=== PATIENT | male | born 1950 | race Caucasian/White ===

== ENCOUNTER 2021-07-12 11:47 | Inpatient (IN) | payer MEDICARE, OTHER, SELFPAY ==
[2021-07-12] VITALS (51 sets, daily range): BP systolic 64–123; BP diastolic 35–59; PULSE 71–165; RESP 17–42; TEMP 36.2–37.7; O2SAT 84–100; BMI 31.1; BMI 44.4
--- NOTE | 2021-07-12 12:05 | XR_ITS ---
FINAL REPORT TECHNIQUE: Single view chest CLINICAL HISTORY: cough, sob FINDINGS: A single view of the chest was obtained. The heart and mediastinum are within normal limits. There is bibasilar atelectasis or pneumonia. There is no pneumothorax. Osseous structures are unremarkable. IMPRESSION: Bibasilar atelectasis or pneumonia. Reviewed, Interpreted and Dictated by Misbah Andre III, MD Transcribed by Shayy Griggs Authenticated by Misbah Andre III, MD on 07/12/2021 01:06:58 PM [facility]
--- NOTE | 2021-07-12 12:22 | HMH.EDGIBL ---
ED Disposition Clinical Impression: Upper GI bleeding, Ileus, Acute kidney injury, Lactic acid acidosis Pneumonia Qualifiers: Pneumonia type: due to unspecified organism Laterality: bilateral Lung location: lower lobe of lung Qualified Code(s): J18.9 - Pneumonia, unspecified organism Disposition: Admitted As Inpatient Condition on Discharge: Serious Instructions: DI for Gastrointestinal Bleeding Referrals: Abiodun Cortes MD [Staff Physician] - - Critical Care Critical Care Time: Yes Attestation: On 07/12/21, the high probability of a clinically significant, sudden or life threatening deterioration of the following system(s) required my full and direct attention, intervention and personal management. The time I documented below is in addition to time spent performing reported procedures but includes the following listed in this critical care notation. Total Critical Care Time: 45 Vital system(s) involved:: Circulatory Failure, Metabolic Failure, Renal Failure, Shock (Septic) My critical care processes included: Assessment & monitoring of V/S, Initial and Re-exams, Data Review/Interpretation, Coordinating Care, Medication Orders and management, Documentation Medical Decision Making - Medical Records Medical records reviewed: Yes: I reviewed the patient's medical records. - [place] Inquiry Pt receiving controlled substance: No Vital Signs: 07/12/21 11:50 07/12/21 11:55 07/12/21 12:00 Temperature 98.2 F Temperature Source Oral Pulse Rate 91 H 87 Pulse Rate [Left Radial] 90 Respiratory Rate 20 Blood Pressure 90/47 L 87/47 L Blood Pressure [Right Arm] 75/53 L Blood Pressure Mean [Right Arm] 60 Blood Pressure Source [Right Arm] Automatic Cuff Blood Pressure Position [Right Arm] Supine 02 Sat by Pulse Oximetry 95 95 97 Oxygen Delivery Method Room Air Room Air 07/12/21 12:08 07/12/21 12:10 07/12/21 12:15 Temperature Temperature Source Pulse Rate 79 85 86 Pulse Rate [Left Radial] Respiratory Rate Blood Pressure 86/42 L 81/45 L 79/59 L Blood Pressure [Right Arm] Blood Pressure Mean [Right Arm] Blood Pressure Source [Right Arm] Blood Pressure Position [Right Arm] 02 Sat by Pulse Oximetry 96 96 97 Oxygen Delivery Method 07/12/21 12:20 07/12/21 12:28 07/12/21 12:30 Temperature Temperature Source Pulse Rate 72 78 Pulse Rate [Left Radial] Respiratory Rate Blood Pressure 88/49 L 81/46 L 83/42 L Blood Pressure [Right Arm] Blood Pressure Mean [Right Arm] Blood Pressure Source [Right Arm] Blood Pressure Position [Right Arm] 02 Sat by Pulse Oximetry 94 L 98 Oxygen Delivery Method 07/12/21 12:35 07/12/21 12:40 07/12/21 12:45 Temperature Temperature Source Pulse Rate 76 74 77 Pulse Rate [Left Radial] Respiratory Rate Blood Pressure 94/46 L 89/44 L 90/51 L Blood Pressure [Right Arm] Blood Pressure Mean [Right Arm] Blood Pressure Source [Right Arm] Blood Pressure Position [Right Arm] 02 Sat by Pulse Oximetry 98 99 98 Oxygen Delivery Method 07/12/21 12:50 07/12/21 12:55 07/12/21 13:00 Temperature Temperature Source Pulse Rate 85 87 85 Pulse Rate [Left Radial] Respiratory Rate Blood Pressure 80/41 L 83/49 L 96/43 L Blood Pressure [Right Arm] Blood Pressure Mean [Right Arm] Blood Pressure Source [Right Arm] Blood Pressure Position [Right Arm] 02 Sat by Pulse Oximetry 100 100 100 Oxygen Delivery Method 07/12/21 13:35 07/12/21 14:00 07/12/21 14:28 Temperature Temperature Source Pulse Rate 89 87 81 Pulse Rate [Left Radial] Respiratory Rate Blood Pressure 81/44 L 81/48 L 72/44 L Blood Pressure [Right Arm] Blood Pressure Mean [Right Arm] Blood Pressure Source [Right Arm] Blood Pressure Position [Right Arm] 02 Sat by Pulse Oximetry 96 97 95 Oxygen Delivery Method - Lab Data Lab Results 07/12/21 11:55: WBC 10.9 H, RBC 4.40 L, Hg
[2021-07-12 12:23] LABS: Basophils # 0.1 K/mm3 (0-0.2); Basophils % 0.6 % (0.1-2.0); Eosinophils # 0.1 K/mm3 (0.0-0.4); Eosinophils % 0.8 % (0.1-12.0); Hematocrit 44.6 % (42.0-52.0); Hemoglobin 14.3 g/dL (14.1-18.0); Lymphocytes # 0.9 K/mm3 (0.7-4.5); Lymphocytes % 8.4 % (10-50); Mean Corpuscular HGB Conc 32.1 g/dL (31.8-35.4); Mean Corpuscular Hemoglobin 32.5 pg (27.0-31.2); Mean Corpuscular Volume 101.4 fl (80-94); Mean Platelet Volume 8.3 fl (7.4-10.4); Monocytes # 1.1 K/mm3 (0.1-1.0); Monocytes % 9.9 % (1.7-9.3); Neutrophils # 8.7 K/mm3 (1.8-7.8); Neutrophils % 80.2 % (37.0-80.0); Platelet Count 471 K/mm3 (142-424); Red Cell Distribution Width 12.8 % (11.5-17.5); White Blood Count 10.9 K/mm3 (4.8-10.8)
[2021-07-12 12:24] LABS: Coronavirus 19, PCR Not Detected (NotDetected); Influenza A, PCR Not Detected (NotDetected); Influenza B, PCR Not Detected (NotDetected)
[2021-07-12 12:25] LABS: Chloride 89 mmol/L (98-107); Potassium 3.4 mmoL/L (3.5-5.1); Sodium 128 mmol/L (136-145)
[2021-07-12 12:28] LABS: Alanine Aminotransferase 21 U/L (12-78); Albumin Level 3.8 g/dl (3.5-5.0); Albumin/Globulin Ratio 1.3 (1.1-1.8); Alkaline Phosphatase 80 U/L (38-126); Anion Gap 21.4 mEq/L (5-15); Aspartate Amino Transferase 26 U/L (17-59); Bilirubin,Total 2.3 mg/dl (0.2-1.3); Calcium 9.9 mg/dl (8.4-10.2); Carbon Dioxide 21 mmol/L (22.0-30.0); Glucose 242 mg/dl (74-100); Lipase 59 U/L (23-300); Total Protein,Serum 6.8 g/dl (6.3-8.2)
[2021-07-12 12:30] LABS: Activated Partial Thrombo Time 26.3 seconds (22.8-30.6); INR 1.01 (0.9-1.1); Prothrombin Time 11.4 seconds (10.1-12.5)
[2021-07-12 12:34] LABS: Creatinine Clearance Estimated 24 mL/min (50-200); Estimated Glomerular Filt Rate 14 ml/min (>60); GFR (African American) 17 ML/MIN (>60)
[2021-07-12 12:37] LABS: NT Pro Brain Natriuretic Pep. 392 pg/mL (0-125)
[2021-07-12 12:41] LABS: Troponin I 0.02 ng/ml (0.00-0.034)
[2021-07-12 12:45] LABS: Occult Blood,Gastric Fluid Positive (Negative)
--- NOTE | 2021-07-12 12:54 | PC.NURSE ---
called pharmacy to mix protonix drip
[2021-07-12 12:57] LABS: Lactic Acid 2.2 mmol/L (0.7-2.1)
[2021-07-12 12:58] LABS: Blood Urea Nitrogen 95 mg/dl (9-20)
--- NOTE | 2021-07-12 13:02 | CT_ITS ---
FINAL REPORT CLINICAL HISTORY: vomiting, abd pain FINDINGS: Axial CT images of the abdomen and pelvis were obtained without intravenous contrast. Coronal reformatted images were also obtained.This study was performed with techniques to keep radiation doses as low as reasonably achievable (ALARA). Individualized dose reduction techniques using automated exposure control or adjustment of mA and/or kV according to the patient's size were employed. Abdomen: The study is technically limiting secondary to patient body habitus. There is bilateral gynecomastia. There is bibasilar atelectasis. There is a less than 3 mm nonobstructive right renal stone. There are probable small gallstones in the gallbladder. The liver, spleen and pancreas have an unremarkable, unenhanced appearance. No mass or adenopathy is seen. There is anasarca. There are multiple air and fluid-filled distended bowel loops without a definite transition point. This may represent an ileus or enteritis. A distal colonic obstruction is not entirely excluded. Pelvis: Images of the pelvis reveal no evidence of ureteral dilation or ureteral stone. The appendix is normal. There is an umbilical hernia containing fat. IMPRESSION: Technically limiting study secondary to patient body habitus. Multiple air and fluid filled distended bowel loops without a definite transition point, may represent an ileus or enteritis. A distal colonic obstruction is not entirely excluded. Reviewed, Interpreted and Dictated by Misbah Andre III, MD Transcribed by Ifeoma Owen Authenticated by Misbah Andre III, MD on 07/12/2021 02:33:53 PM [facility]
[2021-07-12 13:12] LABS: Acetone, Serum (Rapid) None Detected (None Detect)
--- NOTE | 2021-07-12 13:42 | PC.NURSE ---
called RT for vbg order
[2021-07-12 13:50] LABS: VBG Base Excess -8.6 mmol/L (-2.4-2.3); VBG HCO3 18.4 mmol/L (23-30); VBG Oxygen Saturation 78.6 % (50-70); VBG PH 7.27 mmol/L (7.31-7.41); VBG PO2 48.8 mmol/L (28-40); VBG Total CO2 19.6 mmol/L (23-27)
--- NOTE | 2021-07-12 14:32 | ECG_ITS ---
APPROVED REPORT Exam: Resting ECG HR:91 bpm ECG Measurements Heart Rate 91 AXES MA 172 P 8 QRSd 102 QRS 23 QT 378 T 7 QTc 464 Conclusion Normal sinus rhythm Isolated q in iii Abnormal ECG Electronically signed by : René Becker MD 07/14/2021 13:46:21
--- NOTE | 2021-07-12 14:42 | PC.NURSE ---
Dr Reyes talking to Dr Hernandez about patient.
--- NOTE | 2021-07-12 14:54 | HMH.GSCON ---
*Admission Date: 07/12/21 *Reason for consult:: Possible bowel obstruction, possible GI bleed *History of present illness: Patient is a 71-year-old male with history of hypertension, type 2 diabetes, hyperlipidemia, morbid obesity, obstructive sleep apnea who presented to the emergency department with some black vomitus and generally ill feeling. He has been in a physical rehab facility due to right lower extremity fracture which she sustained after taking a fall from an awkward step and had undergone fibula intramedullary nail insertion. He states that he has had some nausea and vomiting while hospitalized and his pain medication was switched from [place] to Percocet. He had some problem with constipation. His vomiting has worsened and was noted to have dark urine concerning for dehydration. He has had some abdominal discomfort and abdominal cramping. Like that he has had some degree of symptoms since his surgery for his right lower extremity fracture earlier this month. He has not had any diarrhea or obvious bloody bowel movements. Evaluation in the emergency department revealed some hypotension. He underwent CT scan of the abdomen and pelvis which revealed findings of diffusely dilated small bowel with air-fluid levels. This was felt to be possibly consistent with ileus versus obstruction versus enteritis but it was somewhat of a limited study. He was noted to have hemoglobin of 14 with hematocrit of 44%. Other significant laboratory findings revealed sodium of 128, chloride 89, CO2 21, BUN 95 and creatinine of 4.2. Lactate is 2.2. Venous blood gas reveals pH 7.27, PO2 48, PCO2 19. Patient was given multiple fluid boluses and started on pressor. Arrangements were made for inpatient admission in critical condition to the ICU and surgical consultation was ordered. Review of Systems - Review of Systems Review of systems:: pertinent systems reviewed and negative unless documented below - *Neurologic Reports weakness, Denies headache(s), Denies numbness [facility] History I have reviewed the patient's past medical history: Yes Medical History: Reports:: Coronary Artery Disease, Diabetes Mellitus Type 1, Hyperlipidemia, Hypertension *Have you ever received a pneumonia vaccine?: Yes *Have you received a flu vaccine this season?: Yes Laterality Cases: Right: Arthroscopy Knee - *Social History Smoking Status: Smoker, status unknown Alcohol Intake: never *Occupational Status:: other *Travel in the last 8 weeks: None Family Hx:: Non-contributory Meds Home Medications Medication Instructions Recorded Confirmed Type Acetaminophen [Tylenol 500mg 500 mg PO Q6 PRN 07/12/21 07/12/21 History tablet] Aspirin [Aspirin 81mg chewable 81 mg PO DAILY 07/12/21 07/12/21 History tab] Bisacodyl [Bisacodyl 10mg Supp] 10 mg RC DAILYP PRN 07/12/21 07/12/21 History Bisacodyl [Women's Laxative] 5 mg PO DAILY PRN 07/12/21 07/12/21 History Famotidine [Pepcid 20mg Tablet] 20 mg PO BID 07/12/21 07/12/21 History Olmesartan Medoxomil 20 mg PO DAILY 07/12/21 07/12/21 History Oxycodone HCl/Acetaminophen 1 each PO Q4HP PRN 07/12/21 07/12/21 History [Oxycodone-Acetaminophen 5-325] Pioglitazone HCl 15 mg PO DAILY 07/12/21 07/12/21 History Promethazine HCl [Phenergan 12.5mg 12.5 mg PO DAILY PRN 07/12/21 07/12/21 History tablet] Sennosides/Docusate Sodium 1 each PO DAILY PRN 07/12/21 07/12/21 History [Senna-Docusate Sodium Tablet] Simvastatin 40 mg PO DAILY 07/12/21 07/12/21 History Spironolactone 50 mg PO DAILY 07/12/21 07/12/21 History Tamsulosin HCl 0.4 mg PO DAILY 07/12/21 07/12/21 History allopurinoL [Allopurinol 100mg 100 mg PO DAILY 07/12/21 07/12/21 History tablet] bisacodyL [Bisacodyl] 10 mg RC DAILY PRN 07/12/21 07/12/21 History bisacodyL [Dulcolax 10mg Supp] 10 mg RC DAILYP PRN 07/12/21 07/12/21 History ondansetron HCL [Zofran 4mg Tab*] 4 mg PO Q6HP PRN 07/12/21 07/12/21 History polyethylene glycoL 3350 17 gm PO DAILY 07/12/2107/02
--- NOTE | 2021-07-12 14:56 | HMH.HP ---
*Admission Date: 07/12/21 <Cordelia Cole - 07/12/21 15:42> *Chief complaint: GIB <Cordelia Cole - 07/12/21 15:42> *History of present illness: Mr. CAN Cortes is a 71-year-old male patient with a history of hypertension, type 2 diabetes mellitus, hyperlipidemia, BPH, morbid obesity, CRUZ on CPAP, and fall who presented to [facility] emergency room for evaluations after vomiting coffee-ground black emesis in the senior care. At that time he was found to be hypotensive as well. Abdomen was taut with some tenderness. He generally did not feel well. He denied any upper respiratory symptoms and fever. To note he had a fall at home at which time he sustained a fracture of the right tibia/fibula when he took an awkward step. He was taken to the operating room at [facility] where he had a fibula intramedullary nail/snow insertion by Dr. Palacios. He also was noted to have some left ankle ligament changes. While hospitalized with the leg surgery he experienced some nausea and vomiting but this was related to the [place]. He was switched back to Percocet at which time this resolved. He did have some constipation which was resolved with Senokot and MiraLAX. He was sent to [facility] for ongoing short-term rehab with a stay expectancy of 4 to 6 weeks. He does live alone and was planning to return home. With evaluation in the emergency room laboratory data showed a white blood cell count of 10,900 and a hemoglobin of 14.3 hematocrit of 44.6. Blood chemistry showed a sodium of 128 potassium 3.4 chloride 89 CO2 21. BUN was 95 and creatinine was 4.2. GFR was 17. Lactate was elevated at 2.2. Liver function studies were not elevated. BNP was 392. Emesis was noted to be positive for occult blood. Acetone was negative. COVID was negative. Coagulation was normal with an INR of 1.01. CXR revealed bibasilar ateletasis CT of the abdomen/pelvis: IMPRESSION: Technically limiting study secondary to patient body habitus. Multiple air and fluid filled distended bowel loops without a definite transition point, may represent an ileus or enteritis. A distal colonic obstruction is not entirely excluded. With evaluation in the emergency room patient was found to be afebrile and initial blood pressure was 75/53. It did improve to 90/47 and 87/47. He was started on Protonix and given a fluid bolus. He was also started on Rocephin IV and lactated Ringer's at 125 an hour. He was started on norepinephrine drip and given doxycycline as well. He had Zofran and Protonix during his stay. ER physician noted that findings were concerning for severe ileus or possible obstruction. He also noted that the pt received a full 30 cc/kg fluid bolus based on his ideal body weight. NG tube was placed. Hemoglobin was stable. He was seen in consultation by surgeon Dr. Hernandez with the following assessment and plan: Assessment and Plan for all problems:: Majority of his symptoms seem to be secondary to possible bowel obstruction versus profound ileus. I would plan to treat as such with nasogastric decompression and IV fluid hydration. Black vomit is likely secondary to bowel obstruction. I would recommend proton pump inhibitor at this time. Would not plan for upper endoscopy at this time but plan to treat as bowel obstruction He was then admitted to [facility] for ongoing care. <Cordelia Cole 07/12/21 15:42> [facility] History Medical History: Reports:: BPH, Diabetes Mellitus Type 2, Gastroesophageal Reflux Disease(GERD), Hyperlipidemia, Hypertension <Cordelia Cole 07/12/21 15:42> *Have you ever received a pneumonia vaccine?: Yes <Cordelia Cole 07/12/21 15:42> *Have you received a flu vaccine this season?: Yes <Cordelia Cole 07/12/21 15:42> Comment:: Obesity, CRUZ on CPAP. <Cordelia Cole 07/12/21 15:42> Laterality Cases: Right: Arthroscopy Knee <Cordelia Cole 07/12/21 15:42> - *Social History Smoking Status: Never smoker <Cordelia Cole 07/12/21 15:42> Al
--- NOTE | 2021-07-12 15:01 | PC.NURSE ---
Dr Hernandez at bedside
--- NOTE | 2021-07-12 15:08 | XR_ITS ---
FINAL REPORT CLINICAL HISTORY: ng tube placement COMPARISON: 2 hours prior FINDINGS: An NG tube is seen with the tip in the region of the body of the stomach. The heart size is normal. The mediastinum is normal. There are mild bibasilar opacities. There are no pleural effusions. There is no pneumothorax. There is no osseous abnormality. IMPRESSION: NG tube tip in the region of the body of the stomach. Mild bibasilar opacities, atelectasis or pneumonia. Reviewed, Interpreted and Dictated by Misbah Andre III, MD Transcribed by Mack Vera Authenticated by Misbah Andre III, MD on 07/12/2021 04:11:16 PM [facility]
[2021-07-12 15:47] LABS: Troponin I 0.02 ng/ml (0.00-0.034)
--- NOTE | 2021-07-12 15:56 | PC.NURSE ---
rad at bedside
[2021-07-12 16:34] LABS: Reflex Lactic Add Lactic Reflex
--- NOTE | 2021-07-12 16:41 | PC.NURSE ---
lab at bedside
[2021-07-12 17:07] LABS: Lactic Acid Follow Up (RFLX 1) 3.8 mmol/L (0.7-2.1)
[2021-07-12 18:56] LABS: Reflex Lactic (2 hrs) Add Lactic Reflex
[2021-07-12 19:10] LABS: Hematocrit 42.6 % (42.0-52.0); Hemoglobin 13.4 g/dL (14.1-18.0)
[2021-07-12 19:25] LABS: Anion Gap 24.2 mEq/L (5-15); Calcium 9.4 mg/dl (8.4-10.2); Carbon Dioxide 14 mmol/L (22.0-30.0); Chloride 90 mmol/L (98-107); Glucose 219 mg/dl (74-100); Potassium 3.2 mmoL/L (3.5-5.1); Sodium 125 mmol/L (136-145)
[2021-07-12 19:30] LABS: Troponin I 0.02 ng/ml (0.00-0.034)
[2021-07-12 19:32] LABS: Creatinine Clearance Estimated 18 mL/min (50-200); Estimated Glomerular Filt Rate 14 ml/min (>60); GFR (African American) 17 ML/MIN (>60)
--- NOTE | 2021-07-12 19:45 | PC.NURSE ---
tyler Armijo, will await return call
[2021-07-12 19:56] LABS: Blood Urea Nitrogen 101 mg/dl (9-20)
[2021-07-12 19:58] LABS: Lactic Acid Follow up (RFLX 2) 4.2 mmol/L (0.7-2.1)
--- NOTE | 2021-07-12 20:14 | PC.NURSE ---
notified MD Armijo of pt's HR 140;s-160's and critical labs (BUN 101, creatinine 4.1, lactic acid 4.2), instructed to start cardizem drip if bp tolerates for HR less than 100, will do so and continue to monitor
[2021-07-12 20:40] LABS: POC Glucose,Bedside 167 (70-110)
--- NOTE | 2021-07-12 20:54 | PC.NURSE ---
notified MD Armijo that pt's oxygen saturations on home cpap with 3LNC also 87-88%, instructed to use [facility] cpap instead, will do so and continue to monitor
--- NOTE | 2021-07-12 21:37 | PC.NURSE ---
notified MD Armijo that had to stop cardizem drip due to hypotension with levo drip maxed, HR still 140's to 170, instructed to give 1L NS bolus, will do so and continue to monitor
--- NOTE | 2021-07-12 22:00 | PC.NURSE ---
MD Armijo at bedside assessing pt and going over chart
--- NOTE | 2021-07-12 22:53 | HMH.ACPN2 ---
Internal Medicine - PN: Subj *Date: 07/12/21 *Time: 22:53 Interval history: He is maxed out on his Levophed and remaines hypotensive with systolic blood pressure in the 80s and is now more tachycardic in the 130s and 140s. He is wearing his BiPAP for treatment of his sleep apnea is O2 sats remained in the mid 90s. He is awake and answering questions appropriately. Abdomen remains markedly distended and has had very little additional NG output. He denies abdominal pain. Exam Vital signs and Labs for Last 24 Hours: Temp Pulse Resp BP Pulse Ox 98.4 F 136 H 28 H 93/48 L 95 07/12/21 17:50 07/12/21 22:00 07/12/21 22:00 07/12/21 22:00 07/12/21 22:00 Laboratory Results - last 24 hr 07/12/21 11:55: WBC 10.9 H, RBC 4.40 L, Hgb 14.3, Hct 44.6, MCV 101.4 H, MCH 32.5 H, MCHC 32.1, RDW 12.8, Plt Count 471 H, MPV 8.3, Neut % (Auto) 80.2 H, Lymph % (Auto) 8.4 L, [place] % (Auto) 9.9 H, Eos % (Auto) 0.8, Baso % (Auto) 0.6, Neut # (Auto) 8.7 H, Lymph # (Auto) 0.9, [place] # (Auto) 1.1 H, Eos # (Auto) 0.1, Baso # (Auto) 0.1 07/12/21 11:55: PT 11.4, INR 1.01, APTT 26.3 07/12/21 11:55: Sodium 128 L, Potassium 3.4 L, Chloride 89 L, Carbon Dioxide 21 L, Anion Gap 21.4 H, BUN 95 H, Creatinine 4.20 H, Estimated Creat Clear 24, Estimated GFR 14 L*, Est GFR ( Amer) 17 L*, Glucose 242 H, Calcium 9.9, Total Bilirubin 2.3 H, AST 26, ALT 21, Alkaline Phosphatase 80, Troponin I 0.02, NT-Pro-B Natriuret Pep 392 H, Total Protein 6.8, Albumin 3.8, Globulin 3.0, Albumin/Globulin Ratio 1.3, Lipase 59 07/12/21 11:55: Acetone Level None detected 07/12/21 12:00: Blood Type B Positive, Antibody Screen Negative 07/12/21 12:05: SARS-CoV-2 (PCR) Not detected, Influenza A Untype (PCR) Not detected, Influenza Type B (PCR) Not detected 07/12/21 12:07: Gastric Occult Blood Positive 07/12/21 12:29: Lactate 2.2 H 07/12/21 13:00: VBG pH 7.27 L, VBG pCO2 41.0, VBG pO2 48.8 H, VBG HCO3 18.4 L, VBG Total CO2 19.6 L, VBG O2 Saturation 78.6 H, VBG Base Excess -8.6 L 07/12/21 15:18: Troponin I 0.02 07/12/21 16:46: Lactate 3.8 H 07/12/21 19:00: Troponin I 0.02 07/12/21 19:00: Hgb 13.4 L, Hct 42.6 07/12/21 19:00: Sodium 125 L, Potassium 3.2 L, Chloride 90 L, Carbon Dioxide 14 L, Anion Gap 24.2 H, BUN 101 H*, Creatinine 4.10 H, Estimated Creat Clear 18, Estimated GFR 14 L*, Est GFR ( Amer) 17 L*, Glucose 219 H, Calcium 9.4 07/12/21 19:10: Lactate 4.2 H 07/12/21 20:32: POC Glucose 167 H I & O for Last 24 hours: Intake & Output 07/10/21 07/11/21 07/12/21 07/13/21 11:59 11:59 11:59 11:59 Intake Total 3743 / 3743 Balance 3743 / 3743 Weight 230 lb 327 lb 5 oz Narrative: Color is good. No respiratory distress. Lungs are clear. Heart is tachycardic but regular. Abdomen markedly distended and firm with only minimal epigastric tenderness. Extremities with no edema. On repeat labs, his hemoglobin is relatively stable. BUN/creatinine remain high. He is hyponatremic at 125. Assessment and Plan (1) Bowel obstruction Status: Acute Category: Medical Code(s): K56.609 - Unspecified intestinal obstruction, unspecified as to partial versus complete obstruction (2) Upper GI bleeding Status: Acute Category: Medical Code(s): K92.2 - Gastrointestinal hemorrhage, unspecified (3) Acute kidney injury Status: Acute Category: Medical Code(s): N17.9 - Acute kidney failure, unspecified (4) Hypotension Status: Acute Category: Medical Code(s): I95.9 - Hypotension, unspecified (5) Abnormal CXR Status: Acute Category: Medical Code(s): R93.89 - Abnormal findings on diagnostic imaging of other specified body structures (6) HTN (hypertension) Status: Chronic Category: Medical Code(s): I10 - Essential (primary) hypertension (7) BPH (benign prostatic hyperplasia) Status: Chronic Category: Medical Code(s): N40.0 - Benign prostatic hyperplasia without lower urinary tract symptoms (8) Obesity Status: Acute Category: Medical
[2021-07-12 23:34] LABS: Microscopic, Urine URINE MICROSCOPIC (MICROSCOPIC)
[2021-07-12 23:35] LABS: Blood, Urine Negative (Negative); Glucose,Urine (UA) TRACE (Negative); Ketones,Urine TRACE (Negative); Leukocyte Esterase,Urine TRACE (Negative); Nitrate,Urine Negative (Negative); Protein,Urine TRACE (Negative); Specific Gravity, Urine >= 1.030 (1.005-1.030); Urobilinogen,Urine 0.2 EU/dl (0.2)
--- NOTE | 2021-07-12 23:37 | PC.NURSE ---
started rowan and stopped levo, MD Armijo at bedside also added vasopressin as bp still below sbp of 80 while maxed on rowan, will start vaso and continue to monitor
[2021-07-12 23:38] LABS: Bilirubin,Urine Negative (Negative)
[2021-07-12 23:39] LABS: Appearance,Urine Cloudy (Clear); Color,Urine Dark Yellow (Yellow)
--- NOTE | 2021-07-12 23:39 | PC.NURSE ---
new iv placed in left wrist, 20g left wrist
[2021-07-12 23:51] LABS: Amorphous Sediment,Urine 1+ /lpf; Bacteria,Urine 4+ /lpf; Mucus,Urine 1+ /lpf
[2021-07-13] VITALS (53 sets, daily range): BP systolic 80–147; BP diastolic 30–97; PULSE 71–149; RESP 20–37; TEMP 37.2–38.5; O2SAT 90–100; BMI 46.3
--- NOTE | 2021-07-13 00:35 | PC.NURSE ---
pt with increased temp, tylenol 650mg given and took off heavy blankets and placed fan in pt's room
[2021-07-13 06:30] LABS: Basophils # 0.1 K/mm3 (0-0.2); Basophils % 0.8 % (0.1-2.0); Eosinophils # 0.1 K/mm3 (0.0-0.4); Eosinophils % 0.4 % (0.1-12.0); Hematocrit 38.7 % (42.0-52.0); Hemoglobin 12.4 g/dL (14.1-18.0); Lymphocytes # 0.9 K/mm3 (0.7-4.5); Lymphocytes % 6.7 % (10-50); Mean Corpuscular Hemoglobin 32.3 pg (27.0-31.2); Mean Platelet Volume 8.9 fl (7.4-10.4); Monocytes # 0.9 K/mm3 (0.1-1.0); Monocytes % 6.9 % (1.7-9.3); Neutrophils # 11.2 K/mm3 (1.8-7.8); Neutrophils % 85.2 % (37.0-80.0); Platelet Count 427 K/mm3 (142-424); Red Blood Count 3.83 M/mm3 (4.60-6.20); Red Cell Distribution Width 12.9 % (11.5-17.5); White Blood Count 13.2 K/mm3 (4.8-10.8)
[2021-07-13 06:31] LABS: Alanine Aminotransferase 19 U/L (12-78); Albumin Level 2.6 g/dl (3.5-5.0); Alkaline Phosphatase 68 U/L (38-126); Anion Gap 18.1 mEq/L (5-15); Aspartate Amino Transferase 46 U/L (17-59); Bilirubin,Total 1.5 mg/dl (0.2-1.3); Calcium 7.8 mg/dl (8.4-10.2); Carbon Dioxide 16 mmol/L (22.0-30.0); Chloride 98 mmol/L (98-107); Globulin 2.5 g/dL (1.3-3.2); Glucose 211 mg/dl (74-100); Potassium 3.1 mmoL/L (3.5-5.1); Sodium 129 mmol/L (136-145); Total Protein,Serum 5.1 g/dl (6.3-8.2)
[2021-07-13 06:36] LABS: Creatinine Clearance Estimated 20 mL/min (50-200); Estimated Glomerular Filt Rate 16 ml/min (>60); GFR (African American) 20 ML/MIN (>60)
[2021-07-13 06:45] LABS: MANUAL DIFFERENTIAL MANUAL DIFFERENTIAL (MANUAL DIFF)
--- NOTE | 2021-07-13 06:56 | HMH.GSPN ---
Subjective Narrative: Patient currently on BiPAP. He was switched from Levophed to vasopressin for hypotension. Currently undergoing echocardiogram. Progress Note: A&P (1) Bowel obstruction Status: Acute (2) Upper GI bleeding Status: Acute (3) Acute kidney injury Status: Acute (4) Hypotension Status: Acute (5) Abnormal CXR Status: Acute (6) HTN (hypertension) Status: Chronic (7) BPH (benign prostatic hyperplasia) Status: Chronic (8) Obesity Status: Acute (9) Ileus Status: Acute (10) Lactic acid acidosis Status: Acute (11) CRUZ treated with BiPAP Status: Chronic (12) Type 2 diabetes mellitus Status: Acute Assessment and Plan for All Diagnoses:: Hemoglobin has remained relatively stable despite significant hydration. I do feel that some of the coffee-ground hematemesis likely secondary to vomiting from possible bowel obstruction versus significant ileus. Do recommend proton pump inhibitors. Treat as bowel obstruction with nasogastric decompression. Recommend appropriate hydration Exam Vital signs and Labs for Last 24 Hours: Temp Pulse Resp BP Pulse Ox 99.7 F H 86 25 H 114/64 98 07/13/21 06:00 07/13/21 06:00 07/13/21 06:00 07/13/21 06:00 07/13/21 06:00 Laboratory Results - last 24 hr 07/12/21 11:55: WBC 10.9 H, RBC 4.40 L, Hgb 14.3, Hct 44.6, MCV 101.4 H, MCH 32.5 H, MCHC 32.1, RDW 12.8, Plt Count 471 H, MPV 8.3, Neut % (Auto) 80.2 H, Lymph % (Auto) 8.4 L, Real % (Auto) 9.9 H, Eos % (Auto) 0.8, Baso % (Auto) 0.6, Neut # (Auto) 8.7 H, Lymph # (Auto) 0.9, Real # (Auto) 1.1 H, Eos # (Auto) 0.1, Baso # (Auto) 0.1 07/12/21 11:55: PT 11.4, INR 1.01, APTT 26.3 07/12/21 11:55: Sodium 128 L, Potassium 3.4 L, Chloride 89 L, Carbon Dioxide 21 L, Anion Gap 21.4 H, BUN 95 H, Creatinine 4.20 H, Estimated Creat Clear 24, Estimated GFR 14 L*, Est GFR ( Amer) 17 L*, Glucose 242 H, Calcium 9.9, Total Bilirubin 2.3 H, AST 26, ALT 21, Alkaline Phosphatase 80, Troponin I 0.02, NT-Pro-B Natriuret Pep 392 H, Total Protein 6.8, Albumin 3.8, Globulin 3.0, Albumin/Globulin Ratio 1.3, Lipase 59 07/12/21 11:55: Acetone Level None detected 07/12/21 12:00: Blood Type B Positive, Antibody Screen Negative 07/12/21 12:05: SARS-CoV-2 (PCR) Not detected, Influenza A Untype (PCR) Not detected, Influenza Type B (PCR) Not detected 07/12/21 12:07: Gastric Occult Blood Positive 07/12/21 12:29: Lactate 2.2 H 07/12/21 13:00: VBG pH 7.27 L, VBG pCO2 41.0, VBG pO2 48.8 H, VBG HCO3 18.4 L, VBG Total CO2 19.6 L, VBG O2 Saturation 78.6 H, VBG Base Excess -8.6 L 07/12/21 15:18: Troponin I 0.02 07/12/21 16:46: Lactate 3.8 H 07/12/21 19:00: Troponin I 0.02 07/12/21 19:00: Hgb 13.4 L, Hct 42.6 07/12/21 19:00: Sodium 125 L, Potassium 3.2 L, Chloride 90 L, Carbon Dioxide 14 L, Anion Gap 24.2 H, BUN 101 H*, Creatinine 4.10 H, Estimated Creat Clear 18, Estimated GFR 14 L*, Est GFR ( Amer) 17 L*, Glucose 219 H, Calcium 9.4 07/12/21 19:10: Lactate 4.2 H 07/12/21 20:32: POC Glucose 167 H 07/12/21 23:20: Urine Color Dark yellow, Urine Appearance Cloudy, Urine pH 5.0, Ur Specific [place] >= 1.030, Urine Protein Trace, Urine Glucose (UA) Trace, Urine Ketones Trace, Urine Blood Negative, Urine Nitrate Negative, Urine Bilirubin Negative, Urine Urobilinogen 0.2, Ur Leukocyte Esterase Trace, Urine WBC 5-10, Amorphous Sediment 1+, Urine Bacteria 4+, Urine Mucus 1+ 07/13/21 05:20: WBC 13.2 H, RBC 3.83 L, Hgb 12.4 L, Hct 38.7 L, MCV 101.0 H, MCH 32.3 H, MCHC 32.0, RDW 12.9, Plt Count 427 H, MPV 8.9, Neut % (Auto) 85.2 H, Lymph % (Auto) 6.7 L, Real % (Auto) 6.9, Eos % (Auto) 0.4, Baso % (Auto) 0.8, Neut # (Auto) 11.2 H, Lymph # (Auto) 0.9, Real # (Auto) 0.9, Eos # (Auto) 0.1, Baso # (Auto) 0.1 I & O for Last 24 hours: Intake & Output 07/10/21 07/11/21 07/12/21 07/13/21 11:59 11:59 11:59 11:59 Intake Total 9905 / 9905 Output Total 675 / 675 Balance 9230 / 9230 Weight 230 lb 327 lb 5 oz Narrat
--- NOTE | 2021-07-13 07:30 | PC.NURSE ---
spoke with provider MD Jorgito regarding initiation of suppository for treatment of ileus. Provider wants to continue lovenox injection. Provider notified of critical lab of BUN 101
[2021-07-13 07:32] LABS: Blood Urea Nitrogen 101 mg/dl (9-20)
[2021-07-13 07:56] LABS: POC Glucose,Bedside 184 (70-110)
--- NOTE | 2021-07-13 08:00 | P.CONPHA_ITS ---
[facility] Pharmacy VTE Monitoring - Patient Demographics Admission date: 07/13/21 Report Date: 07/13/21 Time: 08:00 Allergies/Adverse Reactions: Patient Allergies hydrocodone Allergy (Mild, Verified 07/12/21 12:09) Height: 1.83 m Weight: 148.466 kg Patient Problems: Current Active Problems Upper GI bleeding (Acute) Ileus (Acute) Acute kidney injury (Acute) Lactic acid acidosis (Acute) Pneumonia (Acute) Abnormal CXR (Acute) HTN (hypertension) (Chronic) Hypotension (Acute) BPH (benign prostatic hyperplasia) (Chronic) Obesity (Acute) CRUZ treated with BiPAP (Chronic) Bowel obstruction (Acute) Type 2 diabetes mellitus (Acute) - VTE Risk Labs: VTE Related Lab Results Hgb 12.4 g/dL (14.1-18.0) L 07/13/21 05:20 Hct 38.7 % (42.0-52.0) L 07/13/21 05:20 Plt Count 427 K/mm3 (142-424) H 07/13/21 05:20 PT 11.4 seconds (10.1-12.5) 07/12/21 11:55 INR 1.01 (0.9-1.1) 07/12/21 11:55 APTT 26.3 seconds (22.8-30.6) 07/12/21 11:55 BUN 101 mg/dl (9-20) H* 07/13/21 05:20 Creatinine 3.70 mg/dl (0.66-1.25) H 07/13/21 05:20 Estimated Creat Clear 20 mL/min (50-200) 07/13/21 05:20 Was VTE Risk Assessment Performed: Yes VTE Score: 10 VTE Risk Level: Moderate Risk Clinical Trial Participant: No - Prophylaxis VTE Prophylaxis Ordered?: Yes Types of VTE Prophylaxis: IPCS Knee High
--- NOTE | 2021-07-13 08:11 | HMH.CNCARD ---
History of Present Illness Consult date: 07/13/21 Requesting physician: Chon Armijo Consult reason: hypotension Chief complaint: Bowel Obstruction, Hypotension Additional Medical History:: 1. HTN 2. History of cardiac cath, 2013, no treatment 3. History of CRUZ 4. DM type 2 5. HLD History of present illness: 71 yo WM with recent fall and surgical correction of RLE tib/fib fracture with rehab at [facility] presented for vomiting coffee ground material, abdominal bloating and hypotension. Surgery consulted for possible SBO/Ileus, currently treating with NG tube. Cardiology consulted due to continued hypotension despite max dose of levophed with vasopressin and development of tachycardia. Dr. Wilson recommended switching to phenylephrine along with large volume IVF and hydrocortisone for possible adrenal insufficiency, which has resulted in normalization of HR and stabilization of BP overnight. Pt in ICU on BiPAP. No chest pain. Relates some flatus overnight with slight improvement in abdominal discomfort. Difficult to get history due to need for BiPAP. Troponins normal X 3. BNP mildly elevated with CXR suggestive of possible pneumonia. Currently on Abx. [facility] History Medical History: Reports:: BPH, Coronary Artery Disease, Diabetes Mellitus Type 2, Gastroesophageal Reflux Disease(GERD), Hyperlipidemia, Hypertension Denies:: Cancer, Diabetes Mellitus Type 1, Internal Pacemaker, MRSA *Have you ever received a pneumonia vaccine?: No *Have you received a flu vaccine this season?: No Laterality Cases: Right: Arthroscopy Knee Other Surgeries: No: Pacemaker Amputation: No Fractures: Yes (right tib fib) - *Social History Smoking Status: Never smoker Alcohol Intake: never *Occupational Status:: retired *Travel in the last 8 weeks: None Family Hx:: Diabetes Meds Home Medications Medication Instructions Recorded Confirmed Type Acetaminophen [Tylenol 500mg 500 mg PO Q6HP PRN 07/12/21 07/13/21 History tablet] Aspirin [Aspirin 81mg chewable 81 mg PO DAILY 07/12/21 07/12/21 History tab] Bisacodyl [Bisacodyl 10mg Supp] 10 mg RC DAILYP PRN 07/12/21 07/12/21 History Bisacodyl [Women's Laxative] 5 mg PO DAILYP PRN 07/12/21 07/13/21 History Famotidine [Pepcid 20mg Tablet] 20 mg PO BID 07/12/21 07/12/21 History Olmesartan Medoxomil 20 mg PO DAILY 07/12/21 07/12/21 History Oxycodone HCl/Acetaminophen 1 each PO Q4HP PRN 07/12/21 07/12/21 History [Oxycodone-Acetaminophen 5-325] Pioglitazone HCl 15 mg PO DAILY 07/12/21 07/12/21 History Promethazine HCl [Phenergan 12.5mg 12.5 mg PO DAILY PRN 07/12/21 07/12/21 History tablet] Sennosides/Docusate Sodium 1 each PO BID 07/12/21 07/13/21 History [Senna-Docusate Sodium Tablet] Simvastatin 40 mg PO HS 07/12/21 07/13/21 History Spironolactone 50 mg PO DAILY 07/12/21 07/12/21 History Tamsulosin HCl 0.4 mg PO HS 07/12/21 07/13/21 History allopurinoL [Allopurinol 100mg 100 mg PO DAILY 07/12/21 07/12/21 History tablet] polyethylene glycoL 3350 17 gm PO DAILYP PRN 07/12/21 07/13/21 History [Polyethylene Glycol 3350] Calcium Carbonate [Tums 500mg 500 mg PO TIDP PRN 07/13/21 07/13/21 History chewtab] Allergies Allergy/AdvReac Type Severity Reaction Status Date / Time hydrocodone Allergy Mild Verified 07/12/21 12:09 Exam Vital signs and Labs for Last 24 Hours: Temp Pulse Resp BP Pulse Ox 99.5 F 83 32 H 119/97 H 92 L 07/13/21 07:35 07/13/21 07:35 07/13/21 07:35 07/13/21 07:35 07/13/21 07:35 Laboratory Results - last 24 hr 07/12/21 11:55: WBC 10.9 H, RBC 4.40 L, Hgb 14.3, Hct 44.6, MCV 101.4 H, MCH 32.5 H, MCHC 32.1, RDW 12.8, Plt Count 471 H, MPV 8.3, Neut % (Auto) 80.2 H, Lymph % (Auto) 8.4 L, [place] % (Auto) 9.9 H, Eos % (Auto) 0.8, Baso % (Auto) 0.6, Neut # (Auto) 8.7 H, Lymph # (Auto) 0.9, [place] # (Auto) 1.1 H, Eos # (Auto) 0.1, Baso # (Auto) 0.1 07/12/21 11:55: PT 11.4, INR 1.01, APTT 26.3 07/12/21 11:55: Sodium 128 L, [place]
--- NOTE | 2021-07-13 08:11 | HMH.ACPN2 ---
<Cordelia Cole - Last Filed: 07/13/21 08:38> Internal Medicine - PN: Subj *Date: 07/13/21 *Time: 08:38 Interval history: Per nursing: Patient had an unstable night. He is on 2 vasopressors to maintain adequate blood pressure after fluid resuscitation and ongoing IVF. He continues to be tachycardic. He is on BiPAP. He has a nonproductive cough. He states he is somewhat short of breath. He denies chest pain. He denies abdominal pain. He has NG tube to low wall suction with draining dark drainage. He has had 750 cc urinary output. He has a low-grade fever this a.m. CBC shows a white count of 13,200 with a hemoglobin of 12.4 and hematocrit 38.7. Blood chemistry shows sodium of 129 potassium of 3.1. BUN is 101 with a creatinine of 3.70 which has improved from 4.10 and GFR improved from 17to 20. Repeat chest x-ray revealed NG tube in the region of the body of the stomach. Mild bibasilar opacities with Atelectasis or pneumonia. Exam Vital signs and Labs for Last 24 Hours: Temp Pulse Resp BP Pulse Ox 99.5 F 83 32 H 119/97 H 92 L 07/13/21 07:35 07/13/21 07:35 07/13/21 07:35 07/13/21 07:35 07/13/21 07:35 Laboratory Results - last 24 hr 07/12/21 11:55: WBC 10.9 H, RBC 4.40 L, Hgb 14.3, Hct 44.6, MCV 101.4 H, MCH 32.5 H, MCHC 32.1, RDW 12.8, Plt Count 471 H, MPV 8.3, Neut % (Auto) 80.2 H, Lymph % (Auto) 8.4 L, [place] % (Auto) 9.9 H, Eos % (Auto) 0.8, Baso % (Auto) 0.6, Neut # (Auto) 8.7 H, Lymph # (Auto) 0.9, Leslie # (Auto) 1.1 H, Eos # (Auto) 0.1, Baso # (Auto) 0.1 07/12/21 11:55: PT 11.4, INR 1.01, APTT 26.3 07/12/21 11:55: Sodium 128 L, Potassium 3.4 L, Chloride 89 L, Carbon Dioxide 21 L, Anion Gap 21.4 H, BUN 95 H, Creatinine 4.20 H, Estimated Creat Clear 24, Estimated GFR 14 L*, Est GFR ( Amer) 17 L*, Glucose 242 H, Calcium 9.9, Total Bilirubin 2.3 H, AST 26, ALT 21, Alkaline Phosphatase 80, Troponin I 0.02, NT-Pro-B Natriuret Pep 392 H, Total Protein 6.8, Albumin 3.8, Globulin 3.0, Albumin/Globulin Ratio 1.3, Lipase 59 07/12/21 11:55: Acetone Level None detected 07/12/21 12:00: Blood Type B Positive, Antibody Screen Negative 07/12/21 12:05: SARS-CoV-2 (PCR) Not detected, Influenza A Untype (PCR) Not detected, Influenza Type B (PCR) Not detected 07/12/21 12:07: Gastric Occult Blood Positive 07/12/21 12:29: Lactate 2.2 H 07/12/21 13:00: VBG pH 7.27 L, VBG pCO2 41.0, VBG pO2 48.8 H, VBG HCO3 18.4 L, VBG Total CO2 19.6 L, VBG O2 Saturation 78.6 H, VBG Base Excess -8.6 L 07/12/21 15:18: Troponin I 0.02 07/12/21 16:46: Lactate 3.8 H 07/12/21 19:00: Troponin I 0.02 07/12/21 19:00: Hgb 13.4 L, Hct 42.6 07/12/21 19:00: Sodium 125 L, Potassium 3.2 L, Chloride 90 L, Carbon Dioxide 14 L, Anion Gap 24.2 H, BUN 101 H*, Creatinine 4.10 H, Estimated Creat Clear 18, Estimated GFR 14 L*, Est GFR ( Amer) 17 L*, Glucose 219 H, Calcium 9.4 07/12/21 19:10: Lactate 4.2 H 07/12/21 20:32: POC Glucose 167 H 07/12/21 23:20: Urine Color Dark yellow, Urine Appearance Cloudy, Urine pH 5.0, Ur Specific [place] >= 1.030, Urine Protein Trace, Urine Glucose (UA) Trace, Urine Ketones Trace, Urine Blood Negative, Urine Nitrate Negative, Urine Bilirubin Negative, Urine Urobilinogen 0.2, Ur Leukocyte Esterase Trace, Urine WBC 5-10, Amorphous Sediment 1+, Urine Bacteria 4+, Urine Mucus 1+ 07/13/21 05:20: WBC 13.2 H, RBC 3.83 L, Hgb 12.4 L, Hct 38.7 L, MCV 101.0 H, MCH 32.3 H, MCHC 32.0, RDW 12.9, Plt Count 427 H, MPV 8.9, Neut % (Auto) 85.2 H, Lymph % (Auto) 6.7 L, Leslie % (Auto) 6.9, Eos % (Auto) 0.4, Baso % (Auto) 0.8, Neut # (Auto) 11.2 H, Lymph # (Auto) 0.9, Leslie # (Auto) 0.9, Eos # (Auto) 0.1, Baso # (Auto) 0.1 07/13/21 05:20: Sodium 129 L, Potassium 3.1 L, Chloride 98, Carbon Dioxide 16 L, Anion Gap 18.1 H, BUN 101 H*, Creatinine 3.70 H, Estimated Creat Clear 20, Estimated GFR 16 L*, Est GFR ( Amer) 20 L, Glucose 211 H, Calcium 7.8 L, Total Bilirubin 1.5 H, AST 46 D, ALT 19, Alkaline Phosphatase 68, Total Protein 5.1 L, Albumin 2.6 L D, Globulin 2.5, A
--- NOTE | 2021-07-13 08:26 | HMH.PHAINT ---
home medication list verified using list from [facility] [place] [facility]
[2021-07-13 08:38] LABS: Lactic Acid 2.2 mmol/L (0.7-2.1)
[2021-07-13 08:49] LABS: Magnesium 1.4 mg/dl (1.6-2.3)
[2021-07-13 08:53] LABS: Eosinophils % 1 % (0-3); Lymphocytes % 13 % (10-50); Monocytes % 6 % (2-9); Neutrophils % 75 % (42-76); Total Cells Counted 100
[2021-07-13 08:56] LABS: Macrocytosis 1+; Platelet Estimate Slight Increase
--- NOTE | 2021-07-13 09:07 | PC.NURSE ---
sequential compression device applied to bilateral LE
--- NOTE | 2021-07-13 10:10 | SW/DCPLANNER ---
Addendum entered by [facility] 07/26/21 10:14: The plan for this patient is to discharge back to [place] under SNF level of care today. Patient will require a COVID swab prior to discharge. Patient will have PICC placed prior to discharge for 6 more days of IV Vanc. I have updated Milena dave/ Alejo Patel regarding discharge plan. Addendum entered by [facility] 07/25/21 10:38: Dr rAmijo has stated that plan is to discharge tomorrow. Addendum entered by [facility] 07/25/21 10:29: I have updated Milena dave/ Alejo Patel that the plan is to advance patients diet today. Per Dr Hernandez patient can discharge back to [place] today. Patient will need a COVID swab prior to returning. Addendum entered by [facility] 07/22/21 10:58: I have updated Milena regarding plan for this patient: obtain abdominal x ray today and possible discharge back if normal. Per Milena this patient will require an additional COVID swab prior to returning. I will continue to update Alejo Patel regarding this patient. Addendum entered by [facility] 07/21/21 09:47: Updated patient information has been faxed to [place]. Addendum entered by [facility] 07/20/21 09:51: Updated patient information has been faxed to Milena dave/ [place]. Addendum entered by [facility] 07/18/21 09:21: Updated patient information has been faxed to Milena dave/ [place]. Addendum entered by [facility] 07/15/21 09:21: Updated patient information has been faxed to Milena dave/ [place]. Original Note: This patient currently resides at [place]. I spoke with Milena from [place]: patient is [facility] level of care. I have faxed updated information to Milena this AM. Discharge date is unknown at this time. I will continue to follow up with Milena.
--- NOTE | 2021-07-13 11:44 | PC.NURSE ---
NOtified NIXON Puentes in [facility] office of steatorrhea x2 this afternoon
[2021-07-13 11:47] LABS: POC Glucose,Bedside 199 (70-110)
[2021-07-13 12:12] LABS: Reflex Lactic Add Lactic Reflex
--- NOTE | 2021-07-13 12:52 | HMH.GSPN ---
Subjective Narrative: Has had loose stools. Relatively high NG output. Progress Note: A&P (1) Bowel obstruction Status: Acute (2) Upper GI bleeding Status: Acute (3) Acute kidney injury Status: Acute (4) Hypotension Status: Acute (5) Abnormal CXR Status: Acute (6) HTN (hypertension) Status: Chronic (7) BPH (benign prostatic hyperplasia) Status: Chronic (8) Obesity Status: Acute (9) Ileus Status: Acute (10) Lactic acid acidosis Status: Acute (11) CRUZ treated with BiPAP Status: Chronic (12) Type 2 diabetes mellitus Status: Acute (13) Hyponatremia Status: Acute (14) Hypokalemia Status: Acute Assessment and Plan for All Diagnoses:: NG output appears brownish without blood or coffee-ground material. Reportedly having stools. Favor ileus as opposed to mechanical obstruction. For now continue nasogastric suction. May ultimately benefit from follow-up CT scan with oral contrast versus small bowel follow-through. Exam Vital signs and Labs for Last 24 Hours: Temp Pulse Resp BP Pulse Ox 99.3 F 80 26 H 111/42 L 93 L 07/13/21 12:45 07/13/21 12:45 07/13/21 12:45 07/13/21 12:45 07/13/21 12:45 Laboratory Results - last 24 hr 07/12/21 11:55: PT 11.4, INR 1.01, APTT 26.3 07/12/21 11:55: Sodium 128 L, Potassium 3.4 L, Chloride 89 L, Carbon Dioxide 21 L, Anion Gap 21.4 H, BUN 95 H, Creatinine 4.20 H, Estimated Creat Clear 24, Estimated GFR 14 L*, Est GFR ( Amer) 17 L*, Glucose 242 H, Calcium 9.9, Total Bilirubin 2.3 H, AST 26, ALT 21, Alkaline Phosphatase 80, Troponin I 0.02, NT-Pro-B Natriuret Pep 392 H, Total Protein 6.8, Albumin 3.8, Globulin 3.0, Albumin/Globulin Ratio 1.3, Lipase 59 07/12/21 11:55: Acetone Level None detected 07/12/21 12:00: Blood Type B Positive, Antibody Screen Negative 07/12/21 12:05: SARS-CoV-2 (PCR) Not detected, Influenza A Untype (PCR) Not detected, Influenza Type B (PCR) Not detected 07/12/21 12:29: Lactate 2.2 H 07/12/21 13:00: VBG pH 7.27 L, VBG pCO2 41.0, VBG pO2 48.8 H, VBG HCO3 18.4 L, VBG Total CO2 19.6 L, VBG O2 Saturation 78.6 H, VBG Base Excess -8.6 L 07/12/21 15:18: Troponin I 0.02 07/12/21 16:46: Lactate 3.8 H 07/12/21 19:00: Troponin I 0.02 07/12/21 19:00: Hgb 13.4 L, Hct 42.6 07/12/21 19:00: Sodium 125 L, Potassium 3.2 L, Chloride 90 L, Carbon Dioxide 14 L, Anion Gap 24.2 H, BUN 101 H*, Creatinine 4.10 H, Estimated Creat Clear 18, Estimated GFR 14 L*, Est GFR ( Amer) 17 L*, Glucose 219 H, Calcium 9.4 07/12/21 19:10: Lactate 4.2 H 07/12/21 20:32: POC Glucose 167 H 07/12/21 23:20: Urine Color Dark yellow, Urine Appearance Cloudy, Urine pH 5.0, Ur Specific [place] >= 1.030, Urine Protein Trace, Urine Glucose (UA) Trace, Urine Ketones Trace, Urine Blood Negative, Urine Nitrate Negative, Urine Bilirubin Negative, Urine Urobilinogen 0.2, Ur Leukocyte Esterase Trace, Urine WBC 5-10, Amorphous Sediment 1+, Urine Bacteria 4+, Urine Mucus 1+ 07/13/21 05:20: WBC 13.2 H, RBC 3.83 L, Hgb 12.4 L, Hct 38.7 L, MCV 101.0 H, MCH 32.3 H, MCHC 32.0, RDW 12.9, Plt Count 427 H, MPV 8.9, Neut % (Auto) 85.2 H, Lymph % (Auto) 6.7 L, [place] % (Auto) 6.9, Eos % (Auto) 0.4, Baso % (Auto) 0.8, Neut # (Auto) 11.2 H, Lymph # (Auto) 0.9, [place] # (Auto) 0.9, Eos # (Auto) 0.1, Baso # (Auto) 0.1, Total Counted 100, Neutrophils % (Manual) 75, Band Neutrophils % 5.0, Lymphocytes % (Manual) 13, Monocytes % (Manual) 6, Eosinophils % (Manual) 1, Platelet Estimate Slight increase, Macrocytosis 1+ 07/13/21 05:20: Sodium 129 L, Potassium 3.1 L, Chloride 98, Carbon Dioxide 16 L, Anion Gap 18.1 H, BUN 101 H*, Creatinine 3.70 H, Estimated Creat Clear 20, Estimated GFR 16 L*, Est GFR ( Amer) 20 L, Glucose 211 H, Calcium 7.8 L, Total Bilirubin 1.5 H, AST 46 D, ALT 19, Alkaline Phosphatase 68, Total Protein 5.1 L, Albumin 2.6 L D, Globulin 2.5, Albumin/Globulin Ratio 1.0 L 07/13/21 05:20: Magnesium 1.4 L 07/13/21 07:49: POC Glucose 184 H 07/13/21 08:00: Lacta
[2021-07-13 18:26] LABS: POC Glucose,Bedside 148 (70-110)
[2021-07-13 19:52] LABS: POC Glucose,Bedside 146 (70-110)
--- NOTE | 2021-07-13 21:52 | PC.NURSE ---
Pt declined to wear Bipap. Spoke with MD Cortes. OK to try home CPAP and with/without O2 NC.
--- NOTE | 2021-07-13 22:36 | CA_ITS ---
APPROVED REPORT EXAM: Comprehensive 2D, Doppler, and color-flow Echocardiogram Operating Systems Specialist: Chandni Norton CRT Ht: 6 ft 0 in Wt: 327lbs BSA: 2.63 BP: 72/44 mmHg Indications: Diabetes, Obesity, Hyperlipidemia, Hypertension/HDD, septic, CAD, GI bleed Pt flat on back on bipap Echo Enhancing Agent Indication: Endocardial border delineation Agent(s) / Amount(s) Used: Definity 2 cc 2D Dimensions LVOT 2.01 cm (M/F) 1.5-2.5 M-Mode Dimensions RVDd 3.52 cm (0.9-2.6) LA Diam 3.54 cm (1.9-4.0) LVDd 5.03 cm (3.5-5.7) Ao Diam 5.50 cm (2.0-3.7) LVDs 3.99 cm (3.5-5.7) IVSd 1.72 cm (0.6-1.1) PWd 0.62 cm (0.6-1.1) EF (Teich) 42.00% FS 20.70% EDV (Teich) 119.90 mL TAPSE 2.94 (<1.7) ESV (Teich) 69.60 mL LV Diastology MED E' 7.40 (< 7 cm/sec) MED A' 12.20 cm/s LAT E' 8.30 (<10 cm/sec) LAT A' 10.10 cm/s Aortic Valve AO Peak GR. 6.30 mmHg Pulmonary Valve PV Peak Velocity 106.00 (50-150 cm/s) Tricuspid Valve TR P. Velocity 227.00 cm/s RAP Estimate 10.00 mmHg RVSP 30.70 mmHg Left Ventricle Technically difficult study, despite the use of Definity contrast endocardial surfaces are poorly visualized. Left atrium is mildly enlarged, left ventricle is normal size, mild concentric left ventricular hypertrophy, visually estimated ejection fraction 55% with no obvious regional wall motion abnormality in the visualized segments, there is no left ventricular thrombus seen. Grade 1 diastolic dysfunction seen without tissue Doppler evidence of recent left atrial pressure. Right Ventricle Right atrium and right ventricle are mildly enlarged with normal contractility. Aortic Valve Aortic valve is minimally thickened and fibrosed, there is no Doppler evidence of aortic stenosis or aortic insufficiency. Mitral Valve Mitral valve leaflets are minimally thickened, there is mild mitral regurgitation. Tricuspid Valve Tricuspid valve is grossly normal, there is mild tricuspid regurgitation, tricuspid regurgitation jet velocity is inadequate for calculation of the right ventricular systolic pressure. Pulmonic Valve Pulmonic valve is poorly visualized. Great Vessels Aortic root is normal size. Inferior vena cava is poorly visualized. Pericardium No significant pericardial effusion noted. Conclusion 1. Biatrial enlargement, normal left ventricular size, mild concentric left ventricular hypertrophy, visually estimated ejection fraction 55% with no regional wall motion abnormality in the routine views. Grade 1 diastolic dysfunction seen without tissue Doppler evidence of rate left atrial pressure, Definity contrast was utilized to delineate the endocardial surfaces, there is no left ventricular thrombus seen. 2. Mildly enlarged right ventricle with normal contractility. 3. Mild mitral and tricuspid regurgitation. 4. No significant pericardial effusion noted. 5. Inferior vena cava is poorly visualized. Electronically signed by : Emeka Sarmiento MD 07/13/2021 19:21:42
[2021-07-14] VITALS (22 sets, daily range): BP systolic 132–177; BP diastolic 54–79; PULSE 68–95; RESP 19–26; TEMP 36.6–37.7; O2SAT 91–97; BMI 46.3
--- NOTE | 2021-07-14 05:28 | PC.NURSE ---
Pt was confused at times this shift. He is A&Ox3 this AM. Pt remains on Cpap with 2L O2 NC. Has taken off a few times and was redirected to put back on. VSS. Pt has remained off levophed and vasopressin. He is currently on Daniel @ 100 mcg/min. Urine output has been good. Abdomen is large and distended. NG tube is to low continuous wall suction. Brown, coffe grain drainage noted. Output is 1600 ml this shift. Pt has had 3 loose stools this shift that were clear and mucoid. specimen sent to lab. No other concerns. Will continue to monitor.
[2021-07-14 05:30] LABS: Adenovirus F 40/41, stool Not Detected (NotDetected); Astrovirus Not Detected (NotDetected); Campylobacter Not Detected (NotDetected); Clostridium Difficile A/B, PCR Not Detected (NotDetected); Cryptosporidium Not Detected (NotDetected); Cyclospora Cayetanesis Not Detected (NotDetected); Entamoeba histolytica Not Detected (NotDetected); Enteroaggregative E coli Not Detected (NotDetected); Enteropathogenic E coli Not Detected (NotDetected); Enterotoxigenic E coli Not Detected (NotDetected); Giardia lamblia Not Detected (NotDetected); Norovirus Not Detected (NotDetected); Plesimonas Shigalloides, PCR Not Detected (NotDetected); Rotavirus A Not Detected (NotDetected); Salmonella, PCR Not Detected (NotDetected); Sapovirus Not Detected (NotDetected); Shiga-like toxin E coli Not Detected (NotDetected); Shigella Enterovasive E coli Not Detected (NotDetected); Vibrio Cholerae Not Detected (NotDetected); Vibrio, PCR Not Detected (NotDetected); Yersinia Entercolitica, PCR Not Detected (NotDetected)
[2021-07-14 05:37] LABS: POC Glucose,Bedside 105 (70-110)
[2021-07-14 06:33] LABS: Basophils # 0.1 K/mm3 (0-0.2); Hematocrit 33.7 % (42.0-52.0); Mean Corpuscular HGB Conc 32.2 g/dL (31.8-35.4); Mean Platelet Volume 8.3 fl (7.4-10.4); White Blood Count 11.8 K/mm3 (4.8-10.8)
[2021-07-14 06:49] LABS: Basophils % 1.2 % (0.1-2.0); Eosinophils # 0.2 K/mm3 (0.0-0.4); Lymphocytes % 8.6 % (10-50); Mean Corpuscular Hemoglobin 32.3 pg (27.0-31.2); Mean Corpuscular Volume 100.4 fl (80-94); Monocytes # 1.1 K/mm3 (0.1-1.0); Monocytes % 9.2 % (1.7-9.3); Neutrophils # 9.3 K/mm3 (1.8-7.8); Platelet Count 358 K/mm3 (142-424); Red Blood Count 3.36 M/mm3 (4.60-6.20)
[2021-07-14 06:52] LABS: Alanine Aminotransferase 32 U/L (12-78); Albumin Level 2.5 g/dl (3.5-5.0); Alkaline Phosphatase 67 U/L (38-126); Anion Gap 11.9 mEq/L (5-15); Aspartate Amino Transferase 115 U/L (17-59); Blood Urea Nitrogen 58 mg/dl (9-20); Calcium 7.9 mg/dl (8.4-10.2); Carbon Dioxide 18 mmol/L (22.0-30.0); Chloride 113 mmol/L (98-107); Creatinine Clearance Estimated 57 mL/min (50-200); Estimated Glomerular Filt Rate 54 ml/min (>60); GFR (African American) 66 ML/MIN (>60); Globulin 2.5 g/dL (1.3-3.2); Glucose 116 mg/dl (74-100); Hemoglobin 10.9 g/dL (14.1-18.0); Sodium 140 mmol/L (136-145)
--- NOTE | 2021-07-14 06:52 | PC.NURSE ---
Daniel titration 2000 - 150 mcg/min 2230 - 140 mcg/min 0100 - 130 mcg/min 0315 - 120 mcg/min 0415 - 110 mcg/min 0510 - 100 mcg/min 0615 - 90 mcg/min 0650 - 80 mcg/min
[2021-07-14 06:54] LABS: Potassium 2.9 mmoL/L (3.5-5.1)
[2021-07-14 07:35] LABS: Magnesium 1.8 mg/dl (1.6-2.3)
--- NOTE | 2021-07-14 08:14 | XR_ITS ---
FINAL REPORT CLINICAL HISTORY: f/u COMPARISON: July 12, 2021 FINDINGS: SINGLE VIEW CHEST. A nasogastric tube remains in place. There is cardiomegaly. The mediastinum is unremarkable. There is mild but worsening basilar atelectasis or pneumonia. There is a small left pleural effusion. There is no pneumothorax. IMPRESSION: Mild but worsening bibasilar atelectasis or pneumonia. Reviewed, Interpreted and Dictated by Misbah Andre III, MD Transcribed by Ifeoma Owen Authenticated by Misbah Andre III, MD on 07/14/2021 09:24:49 AM [facility]
--- NOTE | 2021-07-14 08:50 | HMH.ACPN2 ---
<Nadine Flores - Last Filed: 07/14/21 08:50> Internal Medicine - PN: Subj *Date: 07/14/21 *Time: 08:50 Interval history: Patient states he is feeling okay this morning. He denies any pain. He states he was able to sleep last night. Exam Vital signs and Labs for Last 24 Hours: Temp Pulse Resp BP Pulse Ox 99.7 F H 90 26 H 149/67 H 97 07/14/21 08:00 07/14/21 08:00 07/14/21 08:00 07/14/21 08:00 07/14/21 08:00 Laboratory Results - last 24 hr 07/13/21 05:20: Total Counted 100, Neutrophils % (Manual) 75, Band Neutrophils % 5.0, Lymphocytes % (Manual) 13, Monocytes % (Manual) 6, Eosinophils % (Manual) 1, Platelet Estimate Slight increase, Macrocytosis 1+ 07/13/21 05:20: Magnesium 1.4 L 07/13/21 11:40: POC Glucose 199 H 07/13/21 12:20: Lactate 2.0 07/13/21 18:20: POC Glucose 148 H 07/13/21 19:44: POC Glucose 146 H 07/14/21 05:08: WBC 11.8 H, RBC 3.36 L, Hgb 10.9 L D, Hct 33.7 L, MCV 100.4 H, MCH 32.3 H, MCHC 32.2, RDW 13.0, Plt Count 358, MPV 8.3, Neut % (Auto) 79.0, Lymph % (Auto) 8.6 L, [place] % (Auto) 9.2, Eos % (Auto) 2.0, Baso % (Auto) 1.2, Neut # (Auto) 9.3 H, Lymph # (Auto) 1.0, [place] # (Auto) 1.1 H, Eos # (Auto) 0.2, Baso # (Auto) 0.1 07/14/21 05:08: Sodium 140, Potassium 2.9 L*, Chloride 113 H, Carbon Dioxide 18 L, Anion Gap 11.9, BUN 58 H D, Creatinine 1.30 H D, Estimated Creat Clear 57, Estimated GFR 54 L, Est GFR ( Amer) 66 D, Glucose 116 H D, Calcium 7.9 L, Total Bilirubin 1.0, AST 115 H D, ALT 32 D, Alkaline Phosphatase 67, Total Protein 5.0 L, Albumin 2.5 L, Globulin 2.5, Albumin/Globulin Ratio 1.0 L 07/14/21 05:08: Magnesium 1.8 D 07/14/21 05:30: POC Glucose 105 I & O for Last 24 hours: Intake & Output 07/11/21 07/12/21 07/13/21 07/14/21 11:59 11:59 11:59 11:59 Intake Total 37709 / 82312 6313 / 6313 Output Total 2355 / 2415 5220 / 5220 Balance 08439 / 64264 1093 / 1093 Weight 230 lb 327 lb 5 oz 342 lb 6 oz Microbiology Reports for the Last 24 Hours: Microbiology 07/12/21 23:20 Urine,Catheterized Urine Culture - Preliminary NO GROWTH AFTER 24 HOURS - Constitutional no acute distress - *Routine Respiratory Exam Present: decreased breath sounds, crackles - *Routine Cardiovascular Exam Present: RRR - *Routine Abdominal Exam Present: soft, normoactive bowel sounds, distended. Absent: tenderness - *Routine Extremities Exam Present: edema (Trace bilateral lower extremities, right leg in boot). Absent: cyanosis, clubbing - *Routine Skin Exam Present: warm. Absent: rash - *Routine Neurological Exam Present: alert, oriented X3 Assessment and Plan (1) Bowel obstruction Status: Acute Category: Medical Code(s): K56.609 - Unspecified intestinal obstruction, unspecified as to partial versus complete obstruction (2) Upper GI bleeding Status: Acute Category: Medical Code(s): K92.2 - Gastrointestinal hemorrhage, unspecified (3) Acute kidney injury Status: Acute Category: Medical Code(s): N17.9 - Acute kidney failure, unspecified (4) Hypotension Status: Acute Category: Medical Code(s): I95.9 - Hypotension, unspecified (5) Abnormal CXR Status: Acute Category: Medical Code(s): R93.89 - Abnormal findings on diagnostic imaging of other specified body structures (6) HTN (hypertension) Status: Chronic Category: Medical Code(s): I10 - Essential (primary) hypertension (7) BPH (benign prostatic hyperplasia) Status: Chronic Category: Medical Code(s): N40.0 - Benign prostatic hyperplasia without lower urinary tract symptoms (8) Obesity Status: Acute Category: Medical Code(s): E66.9 - Obesity, unspecified (9) Ileus Status: Acute Category: Medical Code(s): K56.7 - Ileus, unspecified (10) Lactic acid acidosis Status: Acute Category: Medical Code(s): E87.2 - Acidosis (11) CRUZ treated with BiPAP Status: Chronic Category: Medical Code(s): 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
--- NOTE | 2021-07-14 10:39 | HMH.PNCARD ---
Subjective Date: 07/14/21 Time: 10:39 Principal diagnosis: SBO Interval history: 71-year-old white male in the ICU in no acute distress. BiPAP is in place. Patient's blood pressure has improved and Daniel-Synephrine is being weaned down. He is beginning to have some bowel movement. Patient states he is feeling better. NG tube remains in place. Telemetry shows sinus rhythm. Exam Vital signs and Labs for Last 24 Hours: Temp Pulse Resp BP Pulse Ox 99.7 F H 93 H 26 H 141/58 H 94 L 07/14/21 10:00 07/14/21 10:00 07/14/21 08:00 07/14/21 10:00 07/14/21 10:00 Laboratory Results - last 24 hr 07/13/21 11:40: POC Glucose 199 H 07/13/21 12:20: Lactate 2.0 07/13/21 18:20: POC Glucose 148 H 07/13/21 19:44: POC Glucose 146 H 07/14/21 03:50: Stl Aeromonas (PCR) Not detected, Stl C. cayetanensis PCR Not detected, Stool Rotavirus (PCR) Not detected, Stl Adenov F 40/41 PCR Not detected, Stool Astrovirus (PCR) Not detected, Stool Campylobacter PCR Not detected, Stl C.difficile Tox PCR Not detected, Stool Cryptosporidium PCR Not detected, Stl E.coli Shiga Tox PCR Not detected, Stool E coli O157 PCR Not detected, Stl Enterotoxigenic E PCR Not detected, Stool EPEC (PCR) Not detected, Stool EAEC (PCR) Not detected, Stl E. histolytica PCR Not detected, Stool Giardia Lamblia PCR Not detected, Stool Salmonella PCR Not detected, Stool Sapovirus (PCR) Not detected, Stl P. shigelloides PCR Not detected, Stl Shigella/EIEC PCR Not detected, St Y.enterocolitica PCR Not detected, Stool Vibrio (PCR) Not detected, Stl Vibrio cholerae PCR Not detected, Stl Norovirus GI/GII PCR Not detected 07/14/21 05:08: WBC 11.8 H, RBC 3.36 L, Hgb 10.9 L D, Hct 33.7 L, MCV 100.4 H, MCH 32.3 H, MCHC 32.2, RDW 13.0, Plt Count 358, MPV 8.3, Neut % (Auto) 79.0, Lymph % (Auto) 8.6 L, [place] % (Auto) 9.2, Eos % (Auto) 2.0, Baso % (Auto) 1.2, Neut # (Auto) 9.3 H, Lymph # (Auto) 1.0, [place] # (Auto) 1.1 H, Eos # (Auto) 0.2, Baso # (Auto) 0.1 07/14/21 05:08: Sodium 140, Potassium 2.9 L*, Chloride 113 H, Carbon Dioxide 18 L, Anion Gap 11.9, BUN 58 H D, Creatinine 1.30 H D, Estimated Creat Clear 57, Estimated GFR 54 L, Est GFR ( Amer) 66 D, Glucose 116 H D, Calcium 7.9 L, Total Bilirubin 1.0, AST 115 H D, ALT 32 D, Alkaline Phosphatase 67, Total Protein 5.0 L, Albumin 2.5 L, Globulin 2.5, Albumin/Globulin Ratio 1.0 L 07/14/21 05:08: Magnesium 1.8 D 07/14/21 05:30: POC Glucose 105 I & O for Last 24 hours: Intake & Output 07/11/21 07/12/21 07/13/21 07/14/21 11:59 11:59 11:59 11:59 Intake Total 29131 / 25738 6633 / 6633 Output Total 2355 / 2415 5995 / 5995 Balance 55599 / 74139 638 / 638 Weight 230 lb 327 lb 5 oz 342 lb 6 oz Microbiology Reports for the Last 24 Hours: Microbiology 07/12/21 23:20 Urine,Catheterized Urine Culture - Preliminary NO GROWTH AFTER 24 HOURS - *Routine Respiratory Exam Present: rhonchi - *Routine Cardiovascular Exam Present: RRR - *Routine Abdominal Exam Present: distended, firm. Absent: tenderness - *Routine Extremities Exam Present: edema. Absent: cyanosis, clubbing Progress Note: A&P (1) Bowel obstruction Status: Acute (2) Upper GI bleeding Status: Acute (3) Acute kidney injury Status: Acute (4) Hypotension Status: Acute (5) Abnormal CXR Status: Acute (6) HTN (hypertension) Status: Chronic (7) BPH (benign prostatic hyperplasia) Status: Chronic (8) Obesity Status: Acute (9) Ileus Status: Acute (10) Lactic acid acidosis Status: Acute (11) CRUZ treated with BiPAP Status: Chronic (12) Type 2 diabetes mellitus Status: Acute (13) Hyponatremia Status: Acute (14) Hypokalemia Status: Acute Assessment and Plan for All Diagnoses:: 1. Hypotension (in setting of SBO/Ileus, possible pneumonia and metabolic acidosis). Stabilized on phenyephrine (weaning down), IVF and hydrocortisone. Will continue IVF and hydrocortisone
[2021-07-14 11:16] LABS: POC Glucose,Bedside 110 (70-110)
[2021-07-14 15:49] LABS: POC Glucose,Bedside 140 (70-110)
--- NOTE | 2021-07-14 18:27 | PC.NURSE ---
Patient has been titrated off Daniel-synephrine today with BP maintained in acceptable range. Titration noted 0700 at 80mcg, 0920 decreased to 70mcg, 1040 decreased to 60, 1115 decreased to 50mcg, 1145 decreased to 40mcg, 1230 decreased to 30mcg, 1415 decreased to 20mcg, 1445 drip stopped. Patient has had multiple clear mucous-like bowel movements today. Large amount of urine output; Total of 900 gastric output. Patient has maintained O2 sats >90% with 2L NC and wearing CPAP together. Patient has shown no s/s of acute distress this shift; will continue to monitor.
[2021-07-14 21:53] LABS: POC Glucose,Bedside 92 (70-110)
[2021-07-15] VITALS (9 sets, daily range): BP systolic 145–184; BP diastolic 67–80; PULSE 70–95; RESP 18–22; TEMP 36.7–37.5; O2SAT 95–98; BMI 46.0
[2021-07-15 05:21] LABS: POC Glucose,Bedside 98 (70-110)
--- NOTE | 2021-07-15 05:26 | PC.NURSE ---
Pt has had 5 brown liquid stools this shift. Abdomen continues to be large and distended. NG to continuous low wall suction. 350 ml total output. Brown in color. Pt has remained on 4L O2 NC and CPAP. Has tolerated well. Lungs noted to have rhonchi t/o. Pt has been encouraged to cough and use incentive spirometer. VSS. Pt has remained off vasopressors. F/C draining to bedside. No complaints voiced. Will continue to monitor.
[2021-07-15 06:31] LABS: Basophils # 0.2 K/mm3 (0-0.2); Basophils % 1.3 % (0.1-2.0); Eosinophils # 0.3 K/mm3 (0.0-0.4); Eosinophils % 2.1 % (0.1-12.0); Hematocrit 32.9 % (42.0-52.0); Hemoglobin 10.5 g/dL (14.1-18.0); Lymphocytes # 1.5 K/mm3 (0.7-4.5); Lymphocytes % 10.4 % (10-50); Mean Corpuscular HGB Conc 31.9 g/dL (31.8-35.4); Mean Corpuscular Hemoglobin 32.4 pg (27.0-31.2); Mean Corpuscular Volume 101.5 fl (80-94); Mean Platelet Volume 8.2 fl (7.4-10.4); Monocytes % 7.5 % (1.7-9.3); Neutrophils # 10.9 K/mm3 (1.8-7.8); Neutrophils % 78.6 % (37.0-80.0); Platelet Count 313 K/mm3 (142-424); Red Blood Count 3.24 M/mm3 (4.60-6.20); Red Cell Distribution Width 13.3 % (11.5-17.5); White Blood Count 13.9 K/mm3 (4.8-10.8)
--- NOTE | 2021-07-15 07:12 | CT_ITS ---
FINAL REPORT CLINICAL HISTORY: ABDOMINAL DISTENSION, ILEUS VS OBSTRUCTION FINDINGS: CT OF THE ABDOMEN AND PELVIS WITH CONTRAST Axial CT images of the abdomen and pelvis were obtained after the administration of oral and iv contrast. Coronal reformatted images were also obtained and reviewed.This study was performed with techniques to keep radiation doses as low as reasonably achievable (ALARA). Individualized dose reduction techniques using automated exposure control or adjustment of mA and/or kV according to the patient''s size were employed. This study is suboptimal secondary to the patient's body habitus. Abdomen: There is bibasilar atelectasis. Small bilateral pleural effusions are noted. Note is made of gynecomastia.. Anasarca is noted. The liver has an unremarkable appearance, without evidence of mass or biliary ductal dilatation. The gallbladder is present. The spleen is unremarkable. No adrenal mass is present. The pancreas has an unremarkable appearance. There is a single less than 3 mm nonobstructing right renal stone. There is no evidence of hydronephrosis. The aorta is normal in caliber. There is no free fluid or adenopathy. No mass or abnormal fluid collection is seen. There are multiple air and fluid-filled, distended small and large bowel loops without evidence of a transition. Pelvis: The appendix is unremarkable. A Pugh catheter is present. No inflammatory process is seen. There is no evidence of mass or adenopathy. Multiple air and fluid-filled bowel loops are again identified. There is an umbilical hernia containing fat. IMPRESSION: Multiple air and fluid-filled, distended bowel loops without a transition point identified. An ileus is favored. Small pleural effusions and anasarca. Small nonobstructing right renal stone. Authenticated by Misbah Andre III, MD on 07/15/2021 01:02:00 PM [facility]
[2021-07-15 07:21] LABS: Blood Urea Nitrogen 33 mg/dl (9-20); Calcium 8.4 mg/dl (8.4-10.2); Carbon Dioxide 21 mmol/L (22.0-30.0); Chloride 117 mmol/L (98-107); Creatinine Clearance Estimated 74 mL/min (50-200); Estimated Glomerular Filt Rate 95 ml/min (>60); GFR (African American) 115 ML/MIN (>60); Glucose 100 mg/dl (74-100); Magnesium 1.8 mg/dl (1.6-2.3); Sodium 143 mmol/L (136-145)
--- NOTE | 2021-07-15 08:57 | HMH.PNCARD ---
Subjective Date: 07/15/21 Time: 08:57 Principal diagnosis: SBO Interval history: 71 yo WM in ICU in NAD. Relates BM since yesterday. Off all pressors. BP is elevated. Resume home dose of olmesartan when able. Telemetry is sinus. Exam Vital signs and Labs for Last 24 Hours: Temp Pulse Resp BP Pulse Ox 98.5 F 83 20 158/67 H 98 07/15/21 07:54 07/15/21 07:54 07/15/21 07:54 07/15/21 07:54 07/15/21 07:54 Laboratory Results - last 24 hr 07/14/21 03:50: Stl Aeromonas (PCR) Not detected, Stl C. cayetanensis PCR Not detected, Stool Rotavirus (PCR) Not detected, Stl Adenov F 40/41 PCR Not detected, Stool Astrovirus (PCR) Not detected, Stool Campylobacter PCR Not detected, Stl C.difficile Tox PCR Not detected, Stool Cryptosporidium PCR Not detected, Stl E.coli Shiga Tox PCR Not detected, Stool E coli O157 PCR Not detected, Stl Enterotoxigenic E PCR Not detected, Stool EPEC (PCR) Not detected, Stool EAEC (PCR) Not detected, Stl E. histolytica PCR Not detected, Stool Giardia Lamblia PCR Not detected, Stool Salmonella PCR Not detected, Stool Sapovirus (PCR) Not detected, Stl P. shigelloides PCR Not detected, Stl Shigella/EIEC PCR Not detected, St Y.enterocolitica PCR Not detected, Stool Vibrio (PCR) Not detected, Stl Vibrio cholerae PCR Not detected, Stl Norovirus GI/GII PCR Not detected 07/14/21 11:09: POC Glucose 110 07/14/21 15:41: POC Glucose 140 H 07/14/21 21:07: POC Glucose 92 07/15/21 05:14: POC Glucose 98 07/15/21 05:40: WBC 13.9 H, RBC 3.24 L, Hgb 10.5 L, Hct 32.9 L, MCV 101.5 H, MCH 32.4 H, MCHC 31.9, RDW 13.3, Plt Count 313, MPV 8.2, Neut % (Auto) 78.6, Lymph % (Auto) 10.4, [place] % (Auto) 7.5, Eos % (Auto) 2.1, Baso % (Auto) 1.3, Neut # (Auto) 10.9 H, Lymph # (Auto) 1.5, [place] # (Auto) 1.0, Eos # (Auto) 0.3, Baso # (Auto) 0.2 07/15/21 05:40: Sodium 143, Potassium 3.0 L, Chloride 117 H, Carbon Dioxide 21 L, Anion Gap 8.0, BUN 33 H D, Creatinine 0.80 D, Estimated Creat Clear 74, Estimated GFR 95, Est GFR ( Amer) 115 D, Glucose 100, Calcium 8.4, Magnesium 1.8 I & O for Last 24 hours: Intake & Output 07/12/21 07/13/21 07/14/21 07/15/21 11:59 11:59 11:59 11:59 Intake Total 43572 / 16522 6833 / 6833 3148 / 3148 Output Total 2355 / 2415 5995 / 6470 3275 / 3275 Balance 09393 / 87722 838 / 363 -127 / -127 Weight 230 lb 327 lb 5 oz 342 lb 6 oz 340 lb 3.2 oz Microbiology Reports for the Last 24 Hours: Microbiology 07/12/21 23:20 Urine,Catheterized Urine Culture - Final NO GROWTH AFTER 48 HOURS - *Routine Respiratory Exam Present: rhonchi Comments: On BiPAP - *Routine Cardiovascular Exam Present: RRR - *Routine Abdominal Exam Present: distended. Absent: tenderness Progress Note: A&P (1) Bowel obstruction Status: Acute (2) Upper GI bleeding Status: Acute (3) Acute kidney injury Status: Acute (4) Hypotension Status: Acute (5) Abnormal CXR Status: Acute (6) HTN (hypertension) Status: Chronic (7) BPH (benign prostatic hyperplasia) Status: Chronic (8) Obesity Status: Acute (9) Ileus Status: Acute (10) Lactic acid acidosis Status: Acute (11) CRUZ treated with BiPAP Status: Chronic (12) Type 2 diabetes mellitus Status: Acute (13) Hyponatremia Status: Acute (14) Hypokalemia Status: Acute Assessment and Plan for All Diagnoses:: 1. Hypotension, resolved. Will continue hydrocortisone daily (possible adrenal crisis/insufficiency in setting of acute illness). Resume home dose of olmesartan when OK to take PO meds. 2. SBO/Ileus, per Surgery and PCP. NG tube in place. 3. Renal insufficiency, acute. Nearly normal. 4. DM, type 2, per PCP 5. CRUZ, on BiPAP 6. Hyponatremia, resolved 7. Hypokalemia, hypomagnesemia, replacement ordered. 8. Pneumonia, on Abx. 9. Metabolic acidosis, lactate back to normal. Improving. Nothing further to add. Please call if needed. Discussed with Dr. Dean
--- NOTE | 2021-07-15 09:00 | HMH.ACPN2 ---
<Nadine Flores - Last Filed: 07/15/21 09:00> Internal Medicine - PN: Subj *Date: 07/15/21 *Time: 09:00 Interval history: Patient states he is feeling a little bit better this morning. He denies any pain and states his belly is softer. He has not been out of the bed. Exam Vital signs and Labs for Last 24 Hours: Temp Pulse Resp BP Pulse Ox 98.5 F 83 20 158/67 H 98 07/15/21 07:54 07/15/21 07:54 07/15/21 07:54 07/15/21 07:54 07/15/21 07:54 Laboratory Results - last 24 hr 07/14/21 03:50: Stl Aeromonas (PCR) Not detected, Stl C. cayetanensis PCR Not detected, Stool Rotavirus (PCR) Not detected, Stl Adenov F 40/41 PCR Not detected, Stool Astrovirus (PCR) Not detected, Stool Campylobacter PCR Not detected, Stl C.difficile Tox PCR Not detected, Stool Cryptosporidium PCR Not detected, Stl E.coli Shiga Tox PCR Not detected, Stool E coli O157 PCR Not detected, Stl Enterotoxigenic E PCR Not detected, Stool EPEC (PCR) Not detected, Stool EAEC (PCR) Not detected, Stl E. histolytica PCR Not detected, Stool Giardia Lamblia PCR Not detected, Stool Salmonella PCR Not detected, Stool Sapovirus (PCR) Not detected, Stl P. shigelloides PCR Not detected, Stl Shigella/EIEC PCR Not detected, St Y.enterocolitica PCR Not detected, Stool Vibrio (PCR) Not detected, Stl Vibrio cholerae PCR Not detected, Stl Norovirus GI/GII PCR Not detected 07/14/21 11:09: POC Glucose 110 07/14/21 15:41: POC Glucose 140 H 07/14/21 21:07: POC Glucose 92 07/15/21 05:14: POC Glucose 98 07/15/21 05:40: WBC 13.9 H, RBC 3.24 L, Hgb 10.5 L, Hct 32.9 L, MCV 101.5 H, MCH 32.4 H, MCHC 31.9, RDW 13.3, Plt Count 313, MPV 8.2, Neut % (Auto) 78.6, Lymph % (Auto) 10.4, Saline % (Auto) 7.5, Eos % (Auto) 2.1, Baso % (Auto) 1.3, Neut # (Auto) 10.9 H, Lymph # (Auto) 1.5, Saline # (Auto) 1.0, Eos # (Auto) 0.3, Baso # (Auto) 0.2 07/15/21 05:40: Sodium 143, Potassium 3.0 L, Chloride 117 H, Carbon Dioxide 21 L, Anion Gap 8.0, BUN 33 H D, Creatinine 0.80 D, Estimated Creat Clear 74, Estimated GFR 95, Est GFR ( Amer) 115 D, Glucose 100, Calcium 8.4, Magnesium 1.8 I & O for Last 24 hours: Intake & Output 07/12/21 07/13/21 07/14/21 07/15/21 11:59 11:59 11:59 11:59 Intake Total 05651 / 45125 6833 / 6833 3148 / 3148 Output Total 2355 / 2415 5995 / 6470 3275 / 3275 Balance 74491 / 53293 838 / 363 -127 / -127 Weight 230 lb 327 lb 5 oz 342 lb 6 oz 340 lb 3.2 oz Microbiology Reports for the Last 24 Hours: Microbiology 07/12/21 23:20 Urine,Catheterized Urine Culture - Final NO GROWTH AFTER 48 HOURS - Constitutional no acute distress - *Routine Respiratory Exam Present: CTA bilaterally - *Routine Cardiovascular Exam Present: RRR - *Routine Abdominal Exam Present: soft, normoactive bowel sounds, distended (But much softer). Absent: tenderness - *Routine Extremities Exam Present: edema (Bilateral lower extremities). Absent: cyanosis, clubbing Comments: Right leg is in a boot - *Routine Skin Exam Present: warm. Absent: rash - *Routine Neurological Exam Present: alert, oriented X3 Assessment and Plan (1) Bowel obstruction Status: Acute Category: Medical Code(s): K56.609 - Unspecified intestinal obstruction, unspecified as to partial versus complete obstruction (2) Upper GI bleeding Status: Acute Category: Medical Code(s): K92.2 - Gastrointestinal hemorrhage, unspecified (3) Acute kidney injury Status: Acute Category: Medical Code(s): N17.9 - Acute kidney failure, unspecified (4) Hypotension Status: Acute Category: Medical Code(s): I95.9 - Hypotension, unspecified (5) Abnormal CXR Status: Acute Category: Medical Code(s): R93.89 - Abnormal findings on diagnostic imaging of other specified body structures (6) HTN (hypertension) Status: Chronic Category: Medical Code(s): I10 - Essential (primary) hypertension (7) BPH (benign prostatic hyperplasia) Status: Chronic Categor
[2021-07-15 10:52] LABS: POC Glucose,Bedside 265 (70-110)
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
--- NOTE | 2021-07-15 11:23 | PC.NURSE ---
notified Dr Armijo face to face of pt low potassium at 0800
--- NOTE | 2021-07-15 11:29 | P.PN_ITS ---
Subjective Narrative: Patient has had less nasogastric output. Several stools. Progress Note: A&P (1) Bowel obstruction Status: Acute (2) Upper GI bleeding Status: Acute (3) Acute kidney injury Status: Acute (4) Hypotension Status: Acute (5) Abnormal CXR Status: Acute (6) HTN (hypertension) Status: Chronic (7) BPH (benign prostatic hyperplasia) Status: Chronic (8) Obesity Status: Acute (9) Ileus Status: Acute (10) Lactic acid acidosis Status: Acute (11) CRUZ treated with BiPAP Status: Chronic (12) Type 2 diabetes mellitus Status: Acute (13) Hyponatremia Status: Acute (14) Hypokalemia Status: Acute Assessment and Plan for All Diagnoses:: CT scan with contrast today Exam Vital signs and Labs for Last 24 Hours: Temp Pulse Resp BP Pulse Ox 98.5 F 82 20 158/67 H 96 07/15/21 07:54 07/15/21 08:00 07/15/21 07:54 07/15/21 07:54 07/15/21 08:00 Laboratory Results - last 24 hr 07/14/21 15:41: POC Glucose 140 H 07/14/21 21:07: POC Glucose 92 07/15/21 05:14: POC Glucose 98 07/15/21 05:40: WBC 13.9 H, RBC 3.24 L, Hgb 10.5 L, Hct 32.9 L, MCV 101.5 H, MCH 32.4 H, MCHC 31.9, RDW 13.3, Plt Count 313, MPV 8.2, Neut % (Auto) 78.6, Lymph % (Auto) 10.4, [place] % (Auto) 7.5, Eos % (Auto) 2.1, Baso % (Auto) 1.3, Neut # (Auto) 10.9 H, Lymph # (Auto) 1.5, [place] # (Auto) 1.0, Eos # (Auto) 0.3, Baso # (Auto) 0.2 07/15/21 05:40: Sodium 143, Potassium 3.0 L, Chloride 117 H, Carbon Dioxide 21 L , Anion Gap 8.0, BUN 33 H D, Creatinine 0.80 D, Estimated Creat Clear 74, Estimated GFR 95, Est GFR ( Amer) 115 D, Glucose 100, Calcium 8.4, Magnesium 1.8 07/15/21 10:45: POC Glucose 265 H I & O for Last 24 hours: Intake & Output 07/12/21 07/13/21 07/14/21 07/15/21 11:59 11:59 11:59 11:59 Intake Total 20434 / 95528 6833 / 6833 3148 / 3148 Output Total 2355 / 2415 5995 / 6470 5075 / 5075 Balance 11815 / 37861 838 / 363 -1927 / -1927 Weight 230 lb 327 lb 5 oz 342 lb 6 oz 340 lb 3.2 oz Microbiology Reports for the Last 24 Hours: Microbiology 07/12/21 23:20 Urine,Catheterized Urine Culture - Final NO GROWTH AFTER 48 HOURS - *Routine Abdominal Exam Present: distended. Absent: tenderness
[2021-07-15 12:35] LABS: POC Glucose,Bedside 101 (70-110)
[2021-07-15 20:07] LABS: POC Glucose,Bedside 96 (70-110)
[2021-07-16] VITALS: BP 140/74; PULSE 93; RESP 18; TEMP 37.7; O2SAT 99
--- NOTE | 2021-07-16 03:35 | PC.NURSE ---
Pt has rested comfortably this shift. BLT lungs diminished throughout with expiratory rhonchi. Abdomen continues to be round and distended. Pt on 4L NC and CPAP at night. NG hooked to continuous low wall suction with brown drainage. IVs patent and infusing well. Pt bathed and catheter care provided. +2 pitting edema in BLE, Catheter patent and draining yellow urine. Pt denies SOA, headache, pain, or N/V. Oral care provided q2h
[2021-07-16 04:00] VITALS: BP 154/69; PULSE 76; RESP 17; TEMP 37.3; O2SAT 99
[2021-07-16 05:00] VITALS: BMI 46.5
[2021-07-16 05:40] LABS: Basophils # 0.2 K/mm3 (0-0.2); Basophils % 1.4 % (0.1-2.0); Eosinophils # 0.3 K/mm3 (0.0-0.4); Eosinophils % 1.8 % (0.1-12.0); Hemoglobin 10.4 g/dL (14.1-18.0); Lymphocytes # 1.6 K/mm3 (0.7-4.5); Lymphocytes % 11.3 % (10-50); Mean Corpuscular HGB Conc 31.7 g/dL (31.8-35.4); Mean Corpuscular Hemoglobin 32.2 pg (27.0-31.2); Mean Corpuscular Volume 101.7 fl (80-94); Mean Platelet Volume 7.9 fl (7.4-10.4); Monocytes % 7.1 % (1.7-9.3); Neutrophils # 11.4 K/mm3 (1.8-7.8); Neutrophils % 78.4 % (37.0-80.0); Platelet Count 306 K/mm3 (142-424); Red Blood Count 3.24 M/mm3 (4.60-6.20); Red Cell Distribution Width 13.2 % (11.5-17.5); White Blood Count 14.5 K/mm3 (4.8-10.8)
[2021-07-16 05:54] LABS: Blood Urea Nitrogen 26 mg/dl (9-20); Calcium 8.6 mg/dl (8.4-10.2); Carbon Dioxide 22 mmol/L (22.0-30.0); Creatinine Clearance Estimated 74 mL/min (50-200); Estimated Glomerular Filt Rate 95 ml/min (>60); GFR (African American) 115 ML/MIN (>60); Glucose 106 mg/dl (74-100); Potassium 3.1 mmoL/L (3.5-5.1); Sodium 145 mmol/L (136-145)
[2021-07-16 05:54] LABS: POC Glucose,Bedside 110 (70-110)
--- NOTE | 2021-07-16 06:00 | XR_ITS ---
PROCEDURE INFORMATION: Exam: XR Complete Acute Abdomen Series Including Chest Exam date and time: 07/16/2021 6:00 AM Age: 71 years old Clinical indication: Constipation; Additional info: Ileus vs sbo-- took several xrays due to body habitus to get complete abdomen series. TECHNIQUE: Imaging protocol: XR complete acute abdomen series, including 2 or more views of the abdomen and a single view chest. COMPARISON: CT ABDOMEN PELVIS W CON 07/15/2021 12:19 PM FINDINGS: Lungs: No focal airspace disease. Pleural spaces: Unremarkable. No pleural effusion. No pneumothorax. Heart/Mediastinum: Cardiomediastinal silhouette is within normal limits. NG tube again terminates in the distal esophagus. Gastrointestinal tract: Similar to slightly improved gaseous distention of small and large bowel loops. Intraperitoneal space: No evidence of pneumoperitoneum. Bones/joints: Unremarkable. Soft tissues: Normal. Other findings: Thermistor probe projects over the anatomic pelvis. IMPRESSION: 1. Similar to slightly improved gaseous distention of small and large bowel loops. 2. NG tube again terminates in the distal esophagus. 3. No evidence of pneumoperitoneum.
[2021-07-16 06:41] LABS: Anion Gap 8.1 mEq/L (5-15); Chloride 118 mmol/L (98-107)
--- NOTE | 2021-07-16 07:56 | HMH.GSPN ---
Subjective Patient reports: no new complaints Progress Note: A&P (1) Bowel obstruction Status: Acute Assessment and plan: Overall, the patient appears to have a significant ileus (slowly resolving) as opposed to mechanical obstruction. His nasogastric output has decreased; however, the tip appears to be in the distal esophagus. He continues to have bowel function. Advance nasogastric tube If nasogastric tube output remains low once advanced into the gastric lumen...likely discontinue soon (2) Upper GI bleeding Status: Acute (3) Acute kidney injury Status: Acute (4) Hypotension Status: Acute (5) Abnormal CXR Status: Acute (6) HTN (hypertension) Status: Chronic (7) BPH (benign prostatic hyperplasia) Status: Chronic (8) Obesity Status: Acute (9) Ileus Status: Acute (10) Lactic acid acidosis Status: Acute (11) CRUZ treated with BiPAP Status: Chronic (12) Type 2 diabetes mellitus Status: Acute (13) Hyponatremia Status: Acute (14) Hypokalemia Status: Acute Exam Vital signs and Labs for Last 24 Hours: Temp Pulse Resp BP Pulse Ox 99.1 F 76 17 154/69 H 99 07/16/21 04:00 07/16/21 04:00 07/16/21 04:00 07/16/21 04:00 07/16/21 04:00 Laboratory Results - last 24 hr 07/15/21 10:45: POC Glucose 265 H 07/15/21 11:36: POC Glucose 101 07/15/21 19:50: POC Glucose 96 07/16/21 05:22: WBC 14.5 H, RBC 3.24 L, Hgb 10.4 L, Hct 33.0 L, MCV 101.7 H, MCH 32.2 H, MCHC 31.7 L, RDW 13.2, Plt Count 306, MPV 7.9, Neut % (Auto) 78.4, Lymph % (Auto) 11.3, [place] % (Auto) 7.1, Eos % (Auto) 1.8, Baso % (Auto) 1.4, Neut # (Auto) 11.4 H, Lymph # (Auto) 1.6, [place] # (Auto) 1.0, Eos # (Auto) 0.3, Baso # (Auto) 0.2 07/16/21 05:22: Sodium 145, Potassium 3.1 L, Chloride 118 H, Carbon Dioxide 22, Anion Gap 8.1, BUN 26 H, Creatinine 0.80, Estimated Creat Clear 74, Estimated GFR 95, Est GFR ( Amer) 115, Glucose 106 H, Calcium 8.6 07/16/21 05:44: POC Glucose 110 I & O for Last 24 hours: Intake & Output 07/13/21 07/14/21 07/15/21 07/16/21 11:59 11:59 11:59 11:59 Intake Total 06969 / 74482 6833 / 6833 3148 / 3148 Output Total 2355 / 2415 5995 / 6470 5075 / 5075 1275 / 1275 Balance 12768 / 32252 838 / 363 -1927 / -1927 -1275 / -1275 Weight 327 lb 5 oz 342 lb 6 oz 340 lb 3.2 oz 343 lb 6 oz Narrative: Nasogastric tube output remains minimal; however, tip appears to be in distal esophagus - Constitutional no acute distress - *Routine Respiratory Exam Absent: respiratory distress - *Routine Cardiovascular Exam Absent: tachycardia - *Routine Abdominal Exam Present: soft, distended Comments: Minimal tenderness to deep palpation
[2021-07-16 08:00] VITALS: BP 137/69; PULSE 83; RESP 18; TEMP 36.8; O2SAT 98
--- NOTE | 2021-07-16 09:29 | HMH.ACPN2 ---
Internal Medicine - PN: Subj *Date: 07/16/21 *Time: 09:29 Interval history: States he rested well last night. Denies abdominal pain. Still having some liquid stool. Exam Vital signs and Labs for Last 24 Hours: Temp Pulse Resp BP Pulse Ox 99.1 F 76 17 154/69 H 99 07/16/21 04:00 07/16/21 04:00 07/16/21 04:00 07/16/21 04:00 07/16/21 04:00 Laboratory Results - last 24 hr 07/15/21 10:45: POC Glucose 265 H 07/15/21 11:36: POC Glucose 101 07/15/21 19:50: POC Glucose 96 07/16/21 05:22: WBC 14.5 H, RBC 3.24 L, Hgb 10.4 L, Hct 33.0 L, MCV 101.7 H, MCH 32.2 H, MCHC 31.7 L, RDW 13.2, Plt Count 306, MPV 7.9, Neut % (Auto) 78.4, Lymph % (Auto) 11.3, [place] % (Auto) 7.1, Eos % (Auto) 1.8, Baso % (Auto) 1.4, Neut # (Auto) 11.4 H, Lymph # (Auto) 1.6, [place] # (Auto) 1.0, Eos # (Auto) 0.3, Baso # (Auto) 0.2 07/16/21 05:22: Sodium 145, Potassium 3.1 L, Chloride 118 H, Carbon Dioxide 22, Anion Gap 8.1, BUN 26 H, Creatinine 0.80, Estimated Creat Clear 74, Estimated GFR 95, Est GFR ( Amer) 115, Glucose 106 H, Calcium 8.6 07/16/21 05:44: POC Glucose 110 I & O for Last 24 hours: Intake & Output 07/13/21 07/14/21 07/15/21 07/16/21 11:59 11:59 11:59 11:59 Intake Total 68486 / 83724 6833 / 6833 3148 / 3148 0 / 0 Output Total 2355 / 2415 5995 / 6470 5075 / 5075 1275 / 1275 Balance 36841 / 29031 838 / 363 -1927 / -1927 -1275 / -1275 Weight 327 lb 5 oz 342 lb 6 oz 340 lb 3.2 oz 343 lb 6 oz Narrative: He appears in no distress. Color is good. Lungs sound better. Upper airway rhonchi improved. Abdomen remains soft and nontender. Extremities with trace pedal edema Assessment and Plan (1) Bowel obstruction Status: Acute Category: Medical Code(s): K56.609 - Unspecified intestinal obstruction, unspecified as to partial versus complete obstruction (2) Upper GI bleeding Status: Acute Category: Medical Code(s): K92.2 - Gastrointestinal hemorrhage, unspecified (3) Acute kidney injury Status: Acute Category: Medical Code(s): N17.9 - Acute kidney failure, unspecified (4) Hypotension Status: Acute Category: Medical Code(s): I95.9 - Hypotension, unspecified (5) Abnormal CXR Status: Acute Category: Medical Code(s): R93.89 - Abnormal findings on diagnostic imaging of other specified body structures (6) HTN (hypertension) Status: Chronic Category: Medical Code(s): I10 - Essential (primary) hypertension (7) BPH (benign prostatic hyperplasia) Status: Chronic Category: Medical Code(s): N40.0 - Benign prostatic hyperplasia without lower urinary tract symptoms (8) Obesity Status: Acute Category: Medical Code(s): E66.9 - Obesity, unspecified (9) Ileus Status: Acute Category: Medical Code(s): K56.7 - Ileus, unspecified (10) Lactic acid acidosis Status: Acute Category: Medical Code(s): E87.2 - Acidosis (11) CRUZ treated with BiPAP Status: Chronic Category: Medical Code(s): G47.33 - Obstructive sleep apnea (adult) (pediatric) (12) Type 2 diabetes mellitus Status: Acute Category: Medical Code(s): E11.9 - Type 2 diabetes mellitus without complications (13) Hyponatremia Status: Acute Category: Medical Code(s): E87.1 - Hypo-osmolality and hyponatremia (14) Hypokalemia Status: Acute Category: Medical Code(s): E87.6 - Hypokalemia - Assessment and plan all Dx Assessment and Plan for all problems:: KUB shows slow improvement. Dr. Gabriel may consider removing his NG. Continue to replace potassium.
--- NOTE | 2021-07-16 09:52 | XR_ITS ---
PROCEDURE INFORMATION: Exam: XR Abdomen Exam date and time: 07/16/2021 9:52 AM Age: 71 years old Clinical indication: Device placement; Gi device; Nasogastric tube; Additional info: Ng placement- sent line enhancement image as well TECHNIQUE: Imaging protocol: XR of the abdomen. Views: Frontal supine view of the abdomen. 1 View. COMPARISON: CR XR ACUTE ABDOMEN SERIES 07/16/2021 6:24 AM FINDINGS: Tubes, catheters and devices: NG tube terminates in the region of the gastric body. Gastrointestinal tract: Similar distention of small and large bowel loops in the upper abdomen. Bones/joints: Unremarkable. IMPRESSION: 1. NG tube terminates in the region of the gastric body. 2. Similar gaseous distention of small and large bowel loops.
--- NOTE | 2021-07-16 10:52 | HMH.ACPN ---
Internal Medicine - PN: Subj *Date: 07/16/21 *Time: 10:52 Exam Vital signs and Labs for Last 24 Hours: Temp Pulse Resp BP Pulse Ox 98.2 F 83 18 137/69 98 07/16/21 08:00 07/16/21 08:00 07/16/21 08:00 07/16/21 08:00 07/16/21 08:00 Laboratory Results - last 24 hr 07/15/21 10:45: POC Glucose 265 H 07/15/21 11:36: POC Glucose 101 07/15/21 19:50: POC Glucose 96 07/16/21 05:22: WBC 14.5 H, RBC 3.24 L, Hgb 10.4 L, Hct 33.0 L, MCV 101.7 H, MCH 32.2 H, MCHC 31.7 L, RDW 13.2, Plt Count 306, MPV 7.9, Neut % (Auto) 78.4, Lymph % (Auto) 11.3, [place] % (Auto) 7.1, Eos % (Auto) 1.8, Baso % (Auto) 1.4, Neut # (Auto) 11.4 H, Lymph # (Auto) 1.6, [place] # (Auto) 1.0, Eos # (Auto) 0.3, Baso # (Auto) 0.2 07/16/21 05:22: Sodium 145, Potassium 3.1 L, Chloride 118 H, Carbon Dioxide 22, Anion Gap 8.1, BUN 26 H, Creatinine 0.80, Estimated Creat Clear 74, Estimated GFR 95, Est GFR ( Amer) 115, Glucose 106 H, Calcium 8.6 07/16/21 05:44: POC Glucose 110 I & O for Last 24 hours: Intake & Output 07/13/21 07/14/21 07/15/21 07/16/21 23:59 23:59 23:59 23:59 Intake Total 88568 / 99794 5738 / 5738 1407 / 1407 0 / 0 Output Total 5250 / 5650 5255 / 5380 3070 / 3670 875 / 875 Balance 5123 / 6199 483 / 358 -1463 / -2263 -875 / -875 Weight 155.29 kg 155.299 kg 154.312 kg 155.752 kg Assessment and Plan (1) Bowel obstruction Status: Acute Category: Medical Code(s): K56.609 - Unspecified intestinal obstruction, unspecified as to partial versus complete obstruction (2) Upper GI bleeding Status: Acute Category: Medical Code(s): K92.2 - Gastrointestinal hemorrhage, unspecified (3) Acute kidney injury Status: Acute Category: Medical Code(s): N17.9 - Acute kidney failure, unspecified (4) Hypotension Status: Acute Category: Medical Code(s): I95.9 - Hypotension, unspecified (5) Abnormal CXR Status: Acute Category: Medical Code(s): R93.89 - Abnormal findings on diagnostic imaging of other specified body structures (6) HTN (hypertension) Status: Chronic Category: Medical Code(s): I10 - Essential (primary) hypertension (7) BPH (benign prostatic hyperplasia) Status: Chronic Category: Medical Code(s): N40.0 - Benign prostatic hyperplasia without lower urinary tract symptoms (8) Obesity Status: Acute Category: Medical Code(s): E66.9 - Obesity, unspecified (9) Ileus Status: Acute Category: Medical Code(s): K56.7 - Ileus, unspecified (10) Lactic acid acidosis Status: Acute Category: Medical Code(s): E87.2 - Acidosis (11) CRUZ treated with BiPAP Status: Chronic Category: Medical Code(s): G47.33 - Obstructive sleep apnea (adult) (pediatric) (12) Type 2 diabetes mellitus Status: Acute Category: Medical Code(s): E11.9 - Type 2 diabetes mellitus without complications (13) Hyponatremia Status: Acute Category: Medical Code(s): E87.1 - Hypo-osmolality and hyponatremia (14) Hypokalemia Status: Acute Category: Medical Code(s): E87.6 - Hypokalemia The patient's infection will respond to the chosen ABx?: Yes Is the patient receiving the right drug, dose, and route?: Yes Could a more targeted ABx be ordered?: No
[2021-07-16 11:54] VITALS: BP 126/68; PULSE 72; RESP 16; TEMP 36.7; O2SAT 97
[2021-07-16 15:50] VITALS: BP 166/74; PULSE 86; RESP 18; TEMP 37.1; O2SAT 100
[2021-07-16 17:44] LABS: POC Glucose,Bedside 109 (70-110)
[2021-07-16 20:00] VITALS: BP 154/76; PULSE 76; RESP 17; TEMP 36.3; O2SAT 95
[2021-07-16 22:25] LABS: POC Glucose,Bedside 105 (70-110)
[2021-07-16 22:25] LABS: POC Glucose,Bedside 132 (70-110)
[2021-07-17] VITALS: BP 163/91; PULSE 72; RESP 16; TEMP 36.6; O2SAT 98
[2021-07-17 04:00] VITALS: BP 155/95; PULSE 64; RESP 18; TEMP 36.8; O2SAT 97
[2021-07-17 05:00] VITALS: BMI 46.5
[2021-07-17 05:55] LABS: POC Glucose,Bedside 112 (70-110)
--- NOTE | 2021-07-17 06:00 | XR_ITS ---
PROCEDURE INFORMATION: Exam: XR Complete Acute Abdomen Series Including Chest Exam date and time: 07/17/2021 6:00 AM Age: 71 years old Clinical indication: Condition or disease; Other: Ileus vs sbo TECHNIQUE: Imaging protocol: XR complete acute abdomen series, including 2 or more views of the abdomen and a single view chest. COMPARISON: CR XR KUB 07/16/2021 10:38 AM FINDINGS: Tubes, catheters and devices: NG tube terminates in the region of the gastric body. Pugh catheter projects over the anatomic pelvis. Lungs: Patchy bibasilar airspace opacities. Pleural spaces: Probable small left pleural effusion. Heart/Mediastinum: Normal. No cardiomegaly. Gastrointestinal tract: Mild interval improvement in gaseous distention of small and large bowel loops. Intraperitoneal space: No pneumoperitoneum. Bones/joints: Normal. No acute fracture. Soft tissues: Normal. IMPRESSION: 1. Mild interval improvement in gaseous distention of small and large bowel loops. 2. Patchy bibasilar airspace opacities may reflect atelectasis. 3. Small left pleural effusion. 4. No pneumoperitoneum.
[2021-07-17 06:34] LABS: Basophils # 0.1 K/mm3 (0-0.2); Basophils % 0.7 % (0.1-2.0); Eosinophils # 0.3 K/mm3 (0.0-0.4); Eosinophils % 1.7 % (0.1-12.0); Hematocrit 34.4 % (42.0-52.0); Hemoglobin 10.8 g/dL (14.1-18.0); Lymphocytes # 2.1 K/mm3 (0.7-4.5); Lymphocytes % 12.2 % (10-50); Mean Corpuscular HGB Conc 31.4 g/dL (31.8-35.4); Mean Corpuscular Hemoglobin 31.8 pg (27.0-31.2); Mean Corpuscular Volume 101.2 fl (80-94); Mean Platelet Volume 8.3 fl (7.4-10.4); Monocytes # 0.9 K/mm3 (0.1-1.0); Monocytes % 5.5 % (1.7-9.3); Neutrophils # 13.5 K/mm3 (1.8-7.8); Platelet Count 341 K/mm3 (142-424); Red Cell Distribution Width 13.4 % (11.5-17.5); White Blood Count 16.9 K/mm3 (4.8-10.8)
[2021-07-17 06:42] LABS: MANUAL DIFFERENTIAL MANUAL DIFFERENTIAL (MANUAL DIFF)
[2021-07-17 07:03] LABS: Hypochromasia 1+; Lymphocytes % 8 % (10-50); Macrocytosis 2+; Monocytes % 3 % (2-9); Neutrophils % 79 % (42-76); Platelet Estimate Normal; Total Cells Counted 100
[2021-07-17 07:09] LABS: Anion Gap 7.1 mEq/L (5-15); Blood Urea Nitrogen 23 mg/dl (9-20); Calcium 8.9 mg/dl (8.4-10.2); Carbon Dioxide 21 mmol/L (22.0-30.0); Chloride 119 mmol/L (98-107); Creatinine Clearance Estimated 74 mL/min (50-200); Estimated Glomerular Filt Rate 95 ml/min (>60); GFR (African American) 115 ML/MIN (>60); Glucose 101 mg/dl (74-100); Potassium 3.1 mmoL/L (3.5-5.1); Sodium 144 mmol/L (136-145)
[2021-07-17 08:00] VITALS: BP 160/63; PULSE 64; RESP 18; TEMP 36.4; O2SAT 98
--- NOTE | 2021-07-17 08:53 | P.PN_ITS ---
Subjective Patient reports: no new complaints, feels better Narrative: Minimal residual per nursing staff Progress Note: A&P (1) Bowel obstruction Status: Acute (2) Upper GI bleeding Status: Acute (3) Acute kidney injury Status: Acute (4) Hypotension Status: Acute (5) Abnormal CXR Status: Acute (6) HTN (hypertension) Status: Chronic (7) BPH (benign prostatic hyperplasia) Status: Chronic (8) Obesity Status: Acute (9) Ileus Status: Acute Assessment and plan: Slow resolution continues. Remove nasogastric tube Cautiously advance to clear liquids without carbonation (10) Lactic acid acidosis Status: Acute (11) CRUZ treated with BiPAP Status: Chronic (12) Type 2 diabetes mellitus Status: Acute (13) Hyponatremia Status: Acute (14) Hypokalemia Status: Acute Exam Vital signs and Labs for Last 24 Hours: Temp Pulse Resp BP Pulse Ox 97.5 F L 64 18 160/63 H 98 07/17/21 08:00 07/17/21 08:00 07/17/21 08:00 07/17/21 08:00 07/17/21 08:00 Laboratory Results - last 24 hr 07/16/21 13:38: POC Glucose 132 H 07/16/21 16:14: POC Glucose 109 07/16/21 20:21: POC Glucose 105 07/17/21 05:16: WBC 16.9 H, RBC 3.40 L, Hgb 10.8 L, Hct 34.4 L, MCV 101.2 H, MCH 31.8 H, MCHC 31.4 L, RDW 13.4, Plt Count 341, MPV 8.3, Neut % (Auto) 80.0, Lymph % (Auto) 12.2, [place] % (Auto) 5.5, Eos % (Auto) 1.7, Baso % (Auto) 0.7, Neut # (Auto) 13.5 H, Lymph # (Auto) 2.1, [place] # (Auto) 0.9, Eos # (Auto) 0.3, Baso # (Auto) 0.1, Total Counted 100, Neutrophils % (Manual) 79 H, Band Neutrophils % 10.0 H, Lymphocytes % (Manual) 8 L, Monocytes % (Manual) 3, Platelet Estimate Normal, Hypochromasia 1+, Macrocytosis 2+ 07/17/21 05:16: Sodium 144, Potassium 3.1 L, Chloride 119 H, Carbon Dioxide 21 L , Anion Gap 7.1, BUN 23 H, Creatinine 0.80, Estimated Creat Clear 74, Estimated GFR 95, Est GFR ( Amer) 115, Glucose 101 H, Calcium 8.9 07/17/21 05:22: POC Glucose 112 H I & O for Last 24 hours: Intake & Output 07/14/21 07/15/21 07/16/21 07/17/21 11:59 11:59 11:59 11:59 Intake Total 6833 / 6833 3148 / 3148 0 / 0 1500 / 1500 Output Total 5995 / 6470 5075 / 5075 1275 / 1275 2470 / 2470 Balance 838 / 363 -1927 / -1927 -1275 / -1275 -970 / -970 Weight 342 lb 6 oz 340 lb 3.2 oz 343 lb 6 oz 343 lb 14.738 oz - Constitutional no acute distress - *Routine Respiratory Exam Absent: respiratory distress - *Routine Cardiovascular Exam Absent: tachycardia - *Routine Abdominal Exam Present: soft, distended
--- NOTE | 2021-07-17 09:02 | HMH.ACPN2 ---
Internal Medicine - PN: Subj *Date: 07/17/21 *Time: 09:02 Interval history: No new complaints. Still having frequent loose stools. Minimal NG drainage and surgery plans to d/c NG today. Exam Vital signs and Labs for Last 24 Hours: Temp Pulse Resp BP Pulse Ox 97.5 F L 64 18 160/63 H 98 07/17/21 08:00 07/17/21 08:00 07/17/21 08:00 07/17/21 08:00 07/17/21 08:00 Laboratory Results - last 24 hr 07/16/21 13:38: POC Glucose 132 H 07/16/21 16:14: POC Glucose 109 07/16/21 20:21: POC Glucose 105 07/17/21 05:16: WBC 16.9 H, RBC 3.40 L, Hgb 10.8 L, Hct 34.4 L, MCV 101.2 H, MCH 31.8 H, MCHC 31.4 L, RDW 13.4, Plt Count 341, MPV 8.3, Neut % (Auto) 80.0, Lymph % (Auto) 12.2, [place] % (Auto) 5.5, Eos % (Auto) 1.7, Baso % (Auto) 0.7, Neut # (Auto) 13.5 H, Lymph # (Auto) 2.1, [place] # (Auto) 0.9, Eos # (Auto) 0.3, Baso # (Auto) 0.1, Total Counted 100, Neutrophils % (Manual) 79 H, Band Neutrophils % 10.0 H, Lymphocytes % (Manual) 8 L, Monocytes % (Manual) 3, Platelet Estimate Normal, Hypochromasia 1+, Macrocytosis 2+ 07/17/21 05:16: Sodium 144, Potassium 3.1 L, Chloride 119 H, Carbon Dioxide 21 L, Anion Gap 7.1, BUN 23 H, Creatinine 0.80, Estimated Creat Clear 74, Estimated GFR 95, Est GFR ( Amer) 115, Glucose 101 H, Calcium 8.9 07/17/21 05:22: POC Glucose 112 H I & O for Last 24 hours: Intake & Output 07/14/21 07/15/21 07/16/21 07/17/21 11:59 11:59 11:59 11:59 Intake Total 6833 / 6833 3148 / 3148 0 / 0 1500 / 1500 Output Total 5995 / 6470 5075 / 5075 1275 / 1275 2470 / 2470 Balance 838 / 363 -1927 / -1927 -1275 / -1275 -970 / -970 Weight 342 lb 6 oz 340 lb 3.2 oz 343 lb 6 oz 343 lb 14.738 oz Narrative: More alert and talkative. Chest clear anteriorly. Abdomen distended but soft and NT. Assessment and Plan (1) Bowel obstruction Status: Acute Category: Medical Code(s): K56.609 - Unspecified intestinal obstruction, unspecified as to partial versus complete obstruction (2) Upper GI bleeding Status: Acute Category: Medical Code(s): K92.2 - Gastrointestinal hemorrhage, unspecified (3) Acute kidney injury Status: Acute Category: Medical Code(s): N17.9 - Acute kidney failure, unspecified (4) Hypotension Status: Acute Category: Medical Code(s): I95.9 - Hypotension, unspecified (5) Abnormal CXR Status: Acute Category: Medical Code(s): R93.89 - Abnormal findings on diagnostic imaging of other specified body structures (6) HTN (hypertension) Status: Chronic Category: Medical Code(s): I10 - Essential (primary) hypertension (7) BPH (benign prostatic hyperplasia) Status: Chronic Category: Medical Code(s): N40.0 - Benign prostatic hyperplasia without lower urinary tract symptoms (8) Obesity Status: Acute Category: Medical Code(s): E66.9 - Obesity, unspecified (9) Ileus Status: Acute Category: Medical Code(s): K56.7 - Ileus, unspecified (10) Lactic acid acidosis Status: Acute Category: Medical Code(s): E87.2 - Acidosis (11) CRUZ treated with BiPAP Status: Chronic Category: Medical Code(s): G47.33 - Obstructive sleep apnea (adult) (pediatric) (12) Type 2 diabetes mellitus Status: Acute Category: Medical Code(s): E11.9 - Type 2 diabetes mellitus without complications (13) Hyponatremia Status: Acute Category: Medical Code(s): E87.1 - Hypo-osmolality and hyponatremia (14) Hypokalemia Status: Acute Category: Medical Code(s): E87.6 - Hypokalemia - Assessment and plan all Dx Assessment and Plan for all problems:: D/c NG per surgery and advance to clear liquids. Replace K+.
[2021-07-17 11:19] VITALS: BP 146/88; PULSE 68; RESP 18; TEMP 36.9; O2SAT 97
[2021-07-17 13:47] LABS: POC Glucose,Bedside 111 (70-110)
[2021-07-17 16:00] VITALS: BP 176/81; PULSE 79; RESP 17; TEMP 36.7; O2SAT 96
[2021-07-17 17:17] LABS: POC Glucose,Bedside 138 (70-110)
--- NOTE | 2021-07-17 17:54 | PC.NURSE ---
NG tube removed this am, pt has done well since removal. Has tolerated clears. Has had x 1 loose BM and incont. Pugh remains in place. VSS. have weaned pt to RA. Offered bath, pt stated he would take one at later time. CB in reach. Pt's 3rd run ok K is running at this time, have had to slow rate, and last bag was administered with lidocaine (for a total of 3 runs).
[2021-07-17 20:00] VITALS: BP 151/74; PULSE 87; RESP 19; TEMP 37.2; O2SAT 96
[2021-07-17 22:03] LABS: POC Glucose,Bedside 119 (70-110)
[2021-07-18] VITALS: BP 154/75; PULSE 62; RESP 18; TEMP 37.3; O2SAT 98
[2021-07-18 04:00] VITALS: BP 154/60; PULSE 68; RESP 18; TEMP 37.2; O2SAT 95
[2021-07-18 05:00] VITALS: BMI 47.0
[2021-07-18 06:17] LABS: Basophils # 0.4 K/mm3 (0-0.2); Basophils % 2.1 % (0.1-2.0); Eosinophils # 0.5 K/mm3 (0.0-0.4); Eosinophils % 2.4 % (0.1-12.0); Hematocrit 37.9 % (42.0-52.0); Hemoglobin 11.8 g/dL (14.1-18.0); Lymphocytes # 2.1 K/mm3 (0.7-4.5); Mean Corpuscular Volume 103.2 fl (80-94); Monocytes # 0.7 K/mm3 (0.1-1.0); Monocytes % 3.8 % (1.7-9.3); Neutrophils # 15.5 K/mm3 (1.8-7.8); Neutrophils % 80.7 % (37.0-80.0); Platelet Count 353 K/mm3 (142-424); Red Blood Count 3.67 M/mm3 (4.60-6.20); Red Cell Distribution Width 13.5 % (11.5-17.5); White Blood Count 19.2 K/mm3 (4.8-10.8)
[2021-07-18 06:19] LABS: MANUAL DIFFERENTIAL MANUAL DIFFERENTIAL (MANUAL DIFF)
[2021-07-18 06:24] LABS: Lymphocytes % 14 % (10-50); Monocytes % 4 % (2-9); Neutrophils % 66 % (42-76); Total Cells Counted 100
[2021-07-18 06:25] LABS: Hypochromasia 1+; Macrocytosis 2+; Platelet Estimate Normal
--- NOTE | 2021-07-18 06:38 | PC.NURSE ---
No acute episodes during my shift. Maintaining O2 sats 95 or greater on RA. Tolerating clear liquid diet well. ABD still distended, bowel sounds auscultated x 4 quads. Pt did have 1 large liquid stool during my shift. Bed bath given and barrier cream applied. Pugh patent and draining dark yellow urine, catheter care performed. No complaints or needs at this time. Call light in reach.
[2021-07-18 06:40] LABS: POC Glucose,Bedside 102 (70-110)
[2021-07-18 06:42] LABS: Blood Urea Nitrogen 23 mg/dl (9-20); Calcium 9.1 mg/dl (8.4-10.2); Carbon Dioxide 21 mmol/L (22.0-30.0); Chloride 118 mmol/L (98-107); Creatinine Clearance Estimated 74 mL/min (50-200); Estimated Glomerular Filt Rate 111 ml/min (>60); GFR (African American) 135 ML/MIN (>60); Glucose 106 mg/dl (74-100); Sodium 145 mmol/L (136-145)
[2021-07-18 08:00] VITALS: BP 176/81; PULSE 85; RESP 21; TEMP 36.7; O2SAT 93
--- NOTE | 2021-07-18 08:59 | HMH.ACPN2 ---
Internal Medicine - PN: Subj *Date: 07/18/21 *Time: 08:59 Interval history: He feels much better since NG tube was removed yesterday. He is tolerating his clear liquids. Denies abdominal pain. Large loose bowel movement documented during the night. Exam Vital signs and Labs for Last 24 Hours: Temp Pulse Resp BP Pulse Ox 99.0 F 68 18 154/60 H 95 07/18/21 04:00 07/18/21 04:00 07/18/21 04:00 07/18/21 04:00 07/18/21 04:00 Laboratory Results - last 24 hr 07/17/21 11:53: POC Glucose 111 H 07/17/21 16:22: POC Glucose 138 H 07/17/21 20:59: POC Glucose 119 H 07/18/21 05:01: POC Glucose 102 07/18/21 05:40: WBC 19.2 H, RBC 3.67 L, Hgb 11.8 L, Hct 37.9 L, MCV 103.2 H, MCH 32.0 H, MCHC 31.0 L, RDW 13.5, Plt Count 353, MPV 9.0, Neut % (Auto) 80.7 H, Lymph % (Auto) 11.0, [place] % (Auto) 3.8, Eos % (Auto) 2.4, Baso % (Auto) 2.1 H, Neut # (Auto) 15.5 H, Lymph # (Auto) 2.1, [place] # (Auto) 0.7, Eos # (Auto) 0.5 H, Baso # (Auto) 0.4 H, Total Counted 100, Neutrophils % (Manual) 66, Band Neutrophils % 10.0 H, Lymphocytes % (Manual) 14, Atypical Lymphs % 6.0, Monocytes % (Manual) 4, Platelet Estimate Normal, Hypochromasia 1+, Macrocytosis 2+ 07/18/21 05:40: Sodium 145, Potassium 4.0 D, Chloride 118 H, Carbon Dioxide 21 L, Anion Gap 10.0, BUN 23 H, Creatinine 0.70, Estimated Creat Clear 74, Estimated GFR 111, Est GFR ( Amer) 135, Glucose 106 H, Calcium 9.1 I & O for Last 24 hours: Intake & Output 07/15/21 07/16/21 07/17/21 07/18/21 11:59 11:59 11:59 11:59 Intake Total 3148 / 3148 0 / 0 1500 / 1500 2570 / 2570 Output Total 5075 / 5075 1275 / 1275 2470 / 2470 1200 / 1200 Balance -1927 / -1927 -1275 / -1275 -970 / -970 1370 / 1370 Weight 340 lb 3.2 oz 343 lb 6 oz 343 lb 14.738 oz 347 lb 11.2 oz Narrative: Alert and oriented. Lungs are clear. Heart distant but regular. Abdomen distended but soft and nontender. Extremities with trace edema. Assessment and Plan (1) Bowel obstruction Status: Acute Category: Medical Code(s): K56.609 - Unspecified intestinal obstruction, unspecified as to partial versus complete obstruction (2) Upper GI bleeding Status: Acute Category: Medical Code(s): K92.2 - Gastrointestinal hemorrhage, unspecified (3) Acute kidney injury Status: Acute Category: Medical Code(s): N17.9 - Acute kidney failure, unspecified (4) Hypotension Status: Acute Category: Medical Code(s): I95.9 - Hypotension, unspecified (5) Abnormal CXR Status: Acute Category: Medical Code(s): R93.89 - Abnormal findings on diagnostic imaging of other specified body structures (6) HTN (hypertension) Status: Chronic Category: Medical Code(s): I10 - Essential (primary) hypertension (7) BPH (benign prostatic hyperplasia) Status: Chronic Category: Medical Code(s): N40.0 - Benign prostatic hyperplasia without lower urinary tract symptoms (8) Obesity Status: Acute Category: Medical Code(s): E66.9 - Obesity, unspecified (9) Ileus Status: Acute Category: Medical Code(s): K56.7 - Ileus, unspecified (10) Lactic acid acidosis Status: Acute Category: Medical Code(s): E87.2 - Acidosis (11) CRUZ treated with BiPAP Status: Chronic Category: Medical Code(s): G47.33 - Obstructive sleep apnea (adult) (pediatric) (12) Type 2 diabetes mellitus Status: Acute Category: Medical Code(s): E11.9 - Type 2 diabetes mellitus without complications (13) Hyponatremia Status: Acute Category: Medical Code(s): E87.1 - Hypo-osmolality and hyponatremia (14) Hypokalemia Status: Acute Category: Medical Code(s): E87.6 - Hypokalemia - Assessment and plan all Dx Assessment and Plan for all problems:: Ileus resolving. Potassium is normal today. White count is further elevated. CXR yesterday continued to show some basilar atelectasis. Check UA. Remove Pugh. Continue physical therapy. Out of bed today.
--- NOTE | 2021-07-18 10:44 | P.PN_ITS ---
Subjective Narrative: Patient feels much better with nasogastric tube out. He has been tolerating clear liquids. He had a bowel movement. He denies nausea or abdominal pain. Progress Note: A&P (1) Bowel obstruction Status: Acute Assessment and plan: Advance to full liquid diet. (2) Upper GI bleeding Status: Acute (3) Acute kidney injury Status: Acute (4) Hypotension Status: Acute (5) Abnormal CXR Status: Acute (6) HTN (hypertension) Status: Chronic (7) BPH (benign prostatic hyperplasia) Status: Chronic (8) Obesity Status: Acute (9) Ileus Status: Acute (10) Lactic acid acidosis Status: Acute (11) CRUZ treated with BiPAP Status: Chronic (12) Type 2 diabetes mellitus Status: Acute (13) Hyponatremia Status: Acute (14) Hypokalemia Status: Acute Exam Vital signs and Labs for Last 24 Hours: Temp Pulse Resp BP Pulse Ox 99.0 F 68 18 154/60 H 95 07/18/21 04:00 07/18/21 04:00 07/18/21 04:00 07/18/21 04:00 07/18/21 04:00 Laboratory Results - last 24 hr 07/17/21 11:53: POC Glucose 111 H 07/17/21 16:22: POC Glucose 138 H 07/17/21 20:59: POC Glucose 119 H 07/18/21 05:01: POC Glucose 102 07/18/21 05:40: WBC 19.2 H, RBC 3.67 L, Hgb 11.8 L, Hct 37.9 L, MCV 103.2 H, MCH 32.0 H, MCHC 31.0 L, RDW 13.5, Plt Count 353, MPV 9.0, Neut % (Auto) 80.7 H, Lymph % (Auto) 11.0, [place] % (Auto) 3.8, Eos % (Auto) 2.4, Baso % (Auto) 2.1 H, Neut # (Auto) 15.5 H, Lymph # (Auto) 2.1, [place] # (Auto) 0.7, Eos # (Auto) 0.5 H, Baso # (Auto) 0.4 H, Total Counted 100, Neutrophils % (Manual) 66, Band Neutrophils % 10.0 H, Lymphocytes % (Manual) 14, Atypical Lymphs % 6.0, Monocytes % (Manual) 4, Platelet Estimate Normal, Hypochromasia 1+, Macrocytosis 2+ 07/18/21 05:40: Sodium 145, Potassium 4.0 D, Chloride 118 H, Carbon Dioxide 21 L, Anion Gap 10.0, BUN 23 H, Creatinine 0.70, Estimated Creat Clear 74, Estimated GFR 111, Est GFR ( Amer) 135, Glucose 106 H, Calcium 9.1 I & O for Last 24 hours: Intake & Output 07/15/21 07/16/21 07/17/21 07/18/21 11:59 11:59 11:59 11:59 Intake Total 3148 / 3148 0 / 0 1500 / 1500 2570 / 2570 Output Total 5075 / 5075 1275 / 1275 2470 / 2470 1200 / 1200 Balance -1927 / -1927 -1275 / -1275 -970 / -970 1370 / 1370 Weight 340 lb 3.2 oz 343 lb 6 oz 343 lb 14.738 oz 347 lb 11.2 oz - *Routine Abdominal Exam Present: distended. Absent: tenderness
[2021-07-18 12:07] LABS: POC Glucose,Bedside 122 (70-110)
--- NOTE | 2021-07-18 13:26 | DIET.NUTRFU ---
RD saw pt post-lunch. Only ate a few bites of sherbet. Poor intake d/t taste abnormalities. Tolerated chicken broth well. Didn't like boost breeze but liked Glucerna, supplement changed. Plans to go back to the rehab for physical therapy for previous injury.
[2021-07-18 16:00] VITALS: BP 144/79; PULSE 84; RESP 20; TEMP 36.7; O2SAT 97
[2021-07-18 16:48] LABS: POC Glucose,Bedside 134 (70-110)
--- NOTE | 2021-07-18 18:18 | PC.NURSE ---
PT IS RESTING IN BED. NO COMPLAINTS OF DISCOMFORT. ALERT AND ORIENTED X4. PT HAS TOLERATED FULL LIQUIDS WELL. SUTURES/GABRIELA WERE REMOVED FROM SURGICAL SITES TO THE RLE THIS SHIFT. PT TOLERATED SITTING UP ON THE SOB FOR PHYSICAL THERAPY. LUNG SOUNDS DIMINISHED. ABDOMEN LARGE/DISTENDED WITH HYPOACTIVE BOWEL SOUNDS. UMBILICAL HERNIA NOTED. PT HAD 2 LARGE/LOOSE BOWEL MOVEMENTS THIS SHIFT. WILL CONTINUE TO MONITOR.
[2021-07-18 20:00] VITALS: BP 164/85; PULSE 73; RESP 20; TEMP 37.1; O2SAT 95
[2021-07-18 20:13] LABS: Microscopic,Cath URINE MICROSCOPIC (MICROSCOPIC)
[2021-07-18 20:20] LABS: Appearance,Urine/Cath CLEAR (Clear); Bilirubin,Cath Negative (Negative); Blood, Urine/Cath 2+ (Negative); Color,Urine/Cath DK YELLOW (Yellow); Glucose,Urine/Cath (UA) Negative (Negative); Ketones,Urine/Cath 2+ (Negative); Leukocyte Esterase,Cath TRACE (Negative); Nitrate,Cath Negative (Negative); Protein,Urine/Cath TRACE (Negative); Specific Gravity, Urine/Cath >= 1.030 (1.005-1.030); Urobilinogen,Cath 0.2 EU/dl (0.2)
[2021-07-18 20:59] LABS: Bacteria,Urine/Cath 2+ /lpf; Mucus,Urine/Cath 1+ /lpf; Squamous Epithelial Ur./Cath Occasional #/hpf (0-5)
[2021-07-18 21:00] LABS: Amorphous Sediment,Ur/Cath 1+ /lpf
[2021-07-19] VITALS: BP 156/77; PULSE 67; RESP 18; TEMP 36.6; O2SAT 92
[2021-07-19 03:45] VITALS: BP 161/80; PULSE 84; RESP 18; TEMP 36.9; O2SAT 94
[2021-07-19 05:00] VITALS: BMI 47.0
[2021-07-19 05:46] LABS: POC Glucose,Bedside 133 (70-110)
[2021-07-19 06:16] LABS: Basophils # 0.1 K/mm3 (0-0.2); Basophils % 0.8 % (0.1-2.0); Eosinophils # 0.4 K/mm3 (0.0-0.4); Eosinophils % 2.4 % (0.1-12.0); Hematocrit 37.8 % (42.0-52.0); Hemoglobin 11.6 g/dL (14.1-18.0); Lymphocytes # 2.2 K/mm3 (0.7-4.5); Lymphocytes % 11.9 % (10-50); Mean Corpuscular HGB Conc 30.8 g/dL (31.8-35.4); Mean Corpuscular Hemoglobin 31.7 pg (27.0-31.2); Mean Corpuscular Volume 103.1 fl (80-94); Mean Platelet Volume 7.9 fl (7.4-10.4); Monocytes # 0.6 K/mm3 (0.1-1.0); Monocytes % 3.2 % (1.7-9.3); Neutrophils # 14.8 K/mm3 (1.8-7.8); Neutrophils % 81.7 % (37.0-80.0); Platelet Count 357 K/mm3 (142-424); Red Blood Count 3.66 M/mm3 (4.60-6.20); White Blood Count 18.1 K/mm3 (4.8-10.8)
[2021-07-19 06:35] LABS: MANUAL DIFFERENTIAL MANUAL DIFFERENTIAL (MANUAL DIFF)
[2021-07-19 08:00] VITALS: BP 172/88; PULSE 84; RESP 26; TEMP 36.6; O2SAT 94; O2SAT 96
--- NOTE | 2021-07-19 08:00 | HMH.GSPN ---
Subjective Narrative: Patient taking full liquids. Does state that his abdomen felt somewhat hard after he had eaten. Denies nausea or abdominal pain. No vomiting. Moving bowels. Progress Note: A&P (1) Bowel obstruction Status: Acute Assessment and plan: Likely resolving ileus. Continue to limit to full liquids for now. Will add simethicone. (2) Upper GI bleeding Status: Acute (3) Acute kidney injury Status: Acute (4) Hypotension Status: Acute (5) Abnormal CXR Status: Acute (6) HTN (hypertension) Status: Chronic (7) BPH (benign prostatic hyperplasia) Status: Chronic (8) Obesity Status: Acute (9) Ileus Status: Acute (10) Lactic acid acidosis Status: Acute (11) CRUZ treated with BiPAP Status: Chronic (12) Type 2 diabetes mellitus Status: Acute (13) Hyponatremia Status: Acute (14) Hypokalemia Status: Acute Exam Vital signs and Labs for Last 24 Hours: Temp Pulse Resp BP Pulse Ox 98.5 F 84 18 161/80 H 94 L 07/19/21 03:45 07/19/21 03:45 07/19/21 03:45 07/19/21 03:45 07/19/21 03:45 Laboratory Results - last 24 hr 07/18/21 11:48: POC Glucose 122 H 07/18/21 16:03: POC Glucose 134 H 07/18/21 20:00: Urine Color Dk yellow, Urine Appearance Clear, Urine pH 6.0, Ur Specific [place] >= 1.030, Urine Protein Trace, Urine Glucose (UA) Negative, Urine Ketones 2+, Urine Blood 2+, Urine Nitrate Negative, Urine Bilirubin Negative, Urine Urobilinogen 0.2, Ur Leukocyte Esterase Trace, Urine RBC 10-20, Urine WBC 3-5, Ur Squamous Epith Cells Occasional, Urine Bacteria 2+ A 07/18/21 21:00: POC Glucose 133 H 07/19/21 05:51: WBC 18.1 H, RBC 3.66 L, Hgb 11.6 L, Hct 37.8 L, MCV 103.1 H, MCH 31.7 H, MCHC 30.8 L, RDW 14.0, Plt Count 357, MPV 7.9, Neut % (Auto) 81.7 H, Lymph % (Auto) 11.9, [place] % (Auto) 3.2, Eos % (Auto) 2.4, Baso % (Auto) 0.8, Neut # (Auto) 14.8 H, Lymph # (Auto) 2.2, [place] # (Auto) 0.6, Eos # (Auto) 0.4, Baso # (Auto) 0.1 I & O for Last 24 hours: Intake & Output 07/16/21 07/17/21 07/18/21 07/19/21 11:59 11:59 11:59 11:59 Intake Total 0 / 0 1500 / 1500 2930 / 2930 840 / 840 Output Total 1275 / 1275 2470 / 2470 1200 / 1200 900 / 900 Balance -1275 / -1275 -970 / -970 1730 / 1730 -60 / -60 Weight 343 lb 6 oz 343 lb 14.738 oz 347 lb 11.2 oz 347 lb 10.703 oz Microbiology Reports for the Last 24 Hours: Microbiology 07/13/21 12:28 Sputum - Expectorated Sputum Gram Stain - Final - *Routine Abdominal Exam Present: distended. Absent: tenderness
--- NOTE | 2021-07-19 08:28 | HMH.ACPN2 ---
<Cordelia Cole - Last Filed: 07/19/21 08:28> Internal Medicine - PN: Subj *Date: 07/19/21 *Time: 08:28 Interval history: Patient states he feels better since having the tube out. He is taking clear liquids without nausea or vomiting. His bowels continue to move. His abdomen does feel tight after eating. He is voiding QS. He denies chest pain and shortness of breath. He states he did sit on the side of the bed yesterday with physical therapy. Dressing and [place] applied on right lower extremity yesterday. CBC with a white blood cell count of 18,100, hemoglobin of 11.6 hematocrit 37.8. Exam Vital signs and Labs for Last 24 Hours: Temp Pulse Resp BP Pulse Ox 98.5 F 84 18 161/80 H 94 L 07/19/21 03:45 07/19/21 03:45 07/19/21 03:45 07/19/21 03:45 07/19/21 03:45 Laboratory Results - last 24 hr 07/18/21 11:48: POC Glucose 122 H 07/18/21 16:03: POC Glucose 134 H 07/18/21 20:00: Urine Color Dk yellow, Urine Appearance Clear, Urine pH 6.0, Ur Specific [place] >= 1.030, Urine Protein Trace, Urine Glucose (UA) Negative, Urine Ketones 2+, Urine Blood 2+, Urine Nitrate Negative, Urine Bilirubin Negative, Urine Urobilinogen 0.2, Ur Leukocyte Esterase Trace, Urine RBC 10-20, Urine WBC 3-5, Ur Squamous Epith Cells Occasional, Urine Bacteria 2+ A 07/18/21 21:00: POC Glucose 133 H 07/19/21 05:51: WBC 18.1 H, RBC 3.66 L, Hgb 11.6 L, Hct 37.8 L, MCV 103.1 H, MCH 31.7 H, MCHC 30.8 L, RDW 14.0, Plt Count 357, MPV 7.9, Neut % (Auto) 81.7 H, Lymph % (Auto) 11.9, [place] % (Auto) 3.2, Eos % (Auto) 2.4, Baso % (Auto) 0.8, Neut # (Auto) 14.8 H, Lymph # (Auto) 2.2, [place] # (Auto) 0.6, Eos # (Auto) 0.4, Baso # (Auto) 0.1 I & O for Last 24 hours: Intake & Output 07/16/21 07/17/21 07/18/21 07/19/21 11:59 11:59 11:59 11:59 Intake Total 0 / 0 1500 / 1500 2930 / 2930 840 / 840 Output Total 1275 / 1275 2470 / 2470 1200 / 1200 900 / 900 Balance -1275 / -1275 -970 / -970 1730 / 1730 -60 / -60 Weight 343 lb 6 oz 343 lb 14.738 oz 347 lb 11.2 oz 347 lb 10.703 oz Microbiology Reports for the Last 24 Hours: Microbiology 07/13/21 12:28 Sputum - Expectorated Sputum Gram Stain - Final - Constitutional no acute distress - *Routine Respiratory Exam Present: crackles (Right basilar) - *Routine Cardiovascular Exam Present: RRR - *Routine Abdominal Exam Present: distended, firm. Absent: normoactive bowel sounds (Tympanic), tenderness - *Routine Extremities Exam Present: edema (Bilateral) Comments: Boot on right lower extremity - *Routine Neurological Exam Present: alert, oriented X3 Assessment and Plan (1) Bowel obstruction Status: Acute Category: Medical Code(s): K56.609 - Unspecified intestinal obstruction, unspecified as to partial versus complete obstruction (2) Upper GI bleeding Status: Acute Category: Medical Code(s): K92.2 - Gastrointestinal hemorrhage, unspecified (3) Acute kidney injury Status: Acute Category: Medical Code(s): N17.9 - Acute kidney failure, unspecified (4) Hypotension Status: Acute Category: Medical Code(s): I95.9 - Hypotension, unspecified (5) Abnormal CXR Status: Acute Category: Medical Code(s): R93.89 - Abnormal findings on diagnostic imaging of other specified body structures (6) HTN (hypertension) Status: Chronic Category: Medical Code(s): I10 - Essential (primary) hypertension (7) BPH (benign prostatic hyperplasia) Status: Chronic Category: Medical Code(s): N40.0 - Benign prostatic hyperplasia without lower urinary tract symptoms (8) Obesity Status: Acute Category: Medical Code(s): E66.9 - Obesity, unspecified (9) Ileus Status: Acute Category: Medical Code(s): K56.7 - Ileus, unspecified (10) Lactic acid acidosis Status: Acute Category: Medical Code(s): E87.2 - Acidosis (11) CRUZ treated with BiPAP Status: Chronic Category: Medical Code(s): G47.33 - Obstructive sleep apnea (adult) (pediatric) (12) T
[2021-07-19 08:47] LABS: Lymphocytes % 24 % (10-50); Macrocytosis 1+; Monocytes % 5 % (2-9); Neutrophils % 71 % (42-76); Platelet Estimate Normal; Total Cells Counted 100
[2021-07-19 08:48] LABS: Hypochromasia 1+
[2021-07-19 11:49] LABS: POC Glucose,Bedside 135 (70-110)
[2021-07-19 11:49] LABS: POC Glucose,Bedside 176 (70-110)
[2021-07-19 16:00] VITALS: BP 175/73; PULSE 92; RESP 21; TEMP 36.4; O2SAT 94
[2021-07-19 16:52] LABS: POC Glucose,Bedside 195 (70-110)
[2021-07-19 20:00] VITALS: BP 164/92; PULSE 87; RESP 22; TEMP 36.5; O2SAT 97
[2021-07-19 22:46] LABS: POC Glucose,Bedside 167 (70-110)
[2021-07-20 04:00] VITALS: BP 170/83; PULSE 68; RESP 16; TEMP 36.5; O2SAT 100
[2021-07-20 04:49] VITALS: BMI 47.7
[2021-07-20 05:16] LABS: POC Glucose,Bedside 117 (70-110)
--- NOTE | 2021-07-20 07:34 | HMH.GSPN ---
Subjective Patient reports: bowel movement Narrative: He states that he feels about the same . No nausea or vomiting. He is able to slowly get down his full liquid diet. His appetite remains somewhat decreased. He specifically states that he does not want more right now . Progress Note: A&P (1) Bowel obstruction Status: Acute (2) Upper GI bleeding Status: Acute (3) Acute kidney injury Status: Acute (4) Hypotension Status: Acute (5) Abnormal CXR Status: Acute (6) HTN (hypertension) Status: Chronic (7) BPH (benign prostatic hyperplasia) Status: Chronic (8) Obesity Status: Acute (9) Ileus Status: Acute Assessment and plan: Prolonged ileus with partial resolution. He continues to have bowel function...he remains distended and his appetite is limited. Continue full liquid diet for now (very slow advancement likely soon as patient tolerates) (10) Lactic acid acidosis Status: Acute (11) CRUZ treated with BiPAP Status: Chronic (12) Type 2 diabetes mellitus Status: Acute (13) Hyponatremia Status: Acute (14) Hypokalemia Status: Acute Exam Vital signs and Labs for Last 24 Hours: Temp Pulse Resp BP Pulse Ox 97.7 F 68 16 170/83 H 100 07/20/21 04:00 07/20/21 04:00 07/20/21 04:00 07/20/21 04:00 07/20/21 04:00 Laboratory Results - last 24 hr 07/19/21 05:51: Total Counted 100, Neutrophils % (Manual) 71, Lymphocytes % (Manual) 24, Monocytes % (Manual) 5, Platelet Estimate Normal, Hypochromasia 1+, Macrocytosis 1+ 07/19/21 05:57: POC Glucose 135 H 07/19/21 11:36: POC Glucose 176 H 07/19/21 16:42: POC Glucose 195 H 07/19/21 21:58: POC Glucose 167 H 07/20/21 05:09: POC Glucose 117 H I & O for Last 24 hours: Intake & Output 07/17/21 07/18/21 07/19/21 07/20/21 11:59 11:59 11:59 11:59 Intake Total 1500 / 1500 2930 / 2930 960 / 960 360 / 360 Output Total 2470 / 2470 1200 / 1200 900 / 1125 1350 / 1350 Balance -970 / -970 1730 / 1730 60 / -165 -990 / -990 Weight 343 lb 14.738 oz 347 lb 11.2 oz 347 lb 10.703 oz 352 lb 11.2 oz Microbiology Reports for the Last 24 Hours: Microbiology 07/18/21 20:00 Urine,Catheterized Urine Culture - Preliminary 07/13/21 12:28 Sputum - Expectorated Sputum Gram Stain - Final 07/13/21 12:28 Sputum - Expectorated Sputum Sputum Culture - Preliminary Gram Negative Rods - Constitutional no acute distress - *Routine Cardiovascular Exam Absent: tachycardia - *Routine Abdominal Exam Present: distended
[2021-07-20 08:00] VITALS: BP 156/83; PULSE 93; RESP 21; TEMP 36.8; O2SAT 96
--- NOTE | 2021-07-20 08:16 | HMH.ACPN2 ---
<Cordelia Cole - Last Filed: 07/20/21 08:16> Internal Medicine - PN: Subj *Date: 07/20/21 *Time: 08:16 Interval history: Patient is conversant this morning. He is in the process of eating liquids. He enjoys the popsicle in the broth. He denies nausea and has not vomited. His bowels continue to move. He denies abdominal pain. He also denies chest pain and shortness of breath. He has a periodic productive cough and suctions the sputum himself. He did sleep from 11-5 with his CPAP on last night. He sit on the side of the bed and did bear weight on his left ankle with assistance of 3 from physical therapy. He states he tolerated that well and enjoyed looking at the window. Exam Vital signs and Labs for Last 24 Hours: Temp Pulse Resp BP Pulse Ox 97.7 F 68 16 170/83 H 100 07/20/21 04:00 07/20/21 04:00 07/20/21 04:00 07/20/21 04:00 07/20/21 04:00 Laboratory Results - last 24 hr 07/19/21 05:51: Total Counted 100, Neutrophils % (Manual) 71, Lymphocytes % (Manual) 24, Monocytes % (Manual) 5, Platelet Estimate Normal, Hypochromasia 1+, Macrocytosis 1+ 07/19/21 05:57: POC Glucose 135 H 07/19/21 11:36: POC Glucose 176 H 07/19/21 16:42: POC Glucose 195 H 07/19/21 21:58: POC Glucose 167 H 07/20/21 05:09: POC Glucose 117 H I & O for Last 24 hours: Intake & Output 07/17/21 07/18/21 07/19/21 07/20/21 11:59 11:59 11:59 11:59 Intake Total 1500 / 1500 2930 / 2930 960 / 960 360 / 360 Output Total 2470 / 2470 1200 / 1200 900 / 1125 1350 / 1350 Balance -970 / -970 1730 / 1730 60 / -165 -990 / -990 Weight 343 lb 14.738 oz 347 lb 11.2 oz 347 lb 10.703 oz 352 lb 11.2 oz Microbiology Reports for the Last 24 Hours: Microbiology 07/18/21 20:00 Urine,Catheterized Urine Culture - Preliminary 07/13/21 12:28 Sputum - Expectorated Sputum Gram Stain - Final 07/13/21 12:28 Sputum - Expectorated Sputum Sputum Culture - Preliminary Gram Negative Rods - Constitutional no acute distress Comments: Sitting up in bed completing his breakfast - *Routine Respiratory Exam Present: rhonchi (Bilateral anteriorly; clears with cough) - *Routine Cardiovascular Exam Present: RRR (80/min) - *Routine Abdominal Exam Present: distended, firm. Absent: normoactive bowel sounds (Tympanic bowel sounds), tenderness - *Routine Extremities Exam Present: edema (Left lower leg with pitting edema.). Absent: calf tenderness - *Routine Neurological Exam Present: alert, oriented X3 (Conversant) Assessment and Plan (1) Bowel obstruction Status: Acute Category: Medical Code(s): K56.609 - Unspecified intestinal obstruction, unspecified as to partial versus complete obstruction (2) Upper GI bleeding Status: Acute Category: Medical Code(s): K92.2 - Gastrointestinal hemorrhage, unspecified (3) Acute kidney injury Status: Acute Category: Medical Code(s): N17.9 - Acute kidney failure, unspecified (4) Hypotension Status: Acute Category: Medical Code(s): I95.9 - Hypotension, unspecified (5) Abnormal CXR Status: Acute Category: Medical Code(s): R93.89 - Abnormal findings on diagnostic imaging of other specified body structures (6) HTN (hypertension) Status: Chronic Category: Medical Code(s): I10 - Essential (primary) hypertension (7) BPH (benign prostatic hyperplasia) Status: Chronic Category: Medical Code(s): N40.0 - Benign prostatic hyperplasia without lower urinary tract symptoms (8) Obesity Status: Acute Category: Medical Code(s): E66.9 - Obesity, unspecified (9) Ileus Status: Acute Category: Medical Code(s): K56.7 - Ileus, unspecified (10) Lactic acid acidosis Status: Acute Category: Medical Code(s): E87.2 - Acidosis (11) CRUZ treated with BiPAP Status: Chronic Category: Medical Code(s): G47.33 - Obstructive sleep apnea (adult) (pediatric) (12) Type 2 diabetes mellitus Status: Acute Category: Medical
[2021-07-20 16:00] VITALS: BP 108/72; PULSE 84; RESP 22; TEMP 36.6; O2SAT 92
--- NOTE | 2021-07-20 20:12 | PC.NURSE ---
AOX4, NO ACUTE CHANGES THIS SHIFT. LORETTA WRAP APPLIED TO LLE. TOLERATING RA WELL.
[2021-07-21 00:51] LABS: POC Glucose,Bedside 140 (70-110)
[2021-07-21 05:00] VITALS: BMI 47.7
[2021-07-21 05:36] LABS: POC Glucose,Bedside 123 (70-110)
[2021-07-21 07:56] LABS: Basophils # 0.1 K/mm3 (0-0.2); Basophils % 0.9 % (0.1-2.0); Eosinophils # 0.5 K/mm3 (0.0-0.4); Eosinophils % 4.2 % (0.1-12.0); Hematocrit 37.8 % (42.0-52.0); Hemoglobin 11.8 g/dL (14.1-18.0); Lymphocytes # 1.7 K/mm3 (0.7-4.5); Lymphocytes % 14.1 % (10-50); Mean Corpuscular HGB Conc 31.3 g/dL (31.8-35.4); Mean Corpuscular Hemoglobin 32.3 pg (27.0-31.2); Mean Platelet Volume 8.2 fl (7.4-10.4); Monocytes # 0.5 K/mm3 (0.1-1.0); Neutrophils # 9.3 K/mm3 (1.8-7.8); Neutrophils % 76.8 % (37.0-80.0); Platelet Count 377 K/mm3 (142-424); Red Blood Count 3.67 M/mm3 (4.60-6.20); Red Cell Distribution Width 14.6 % (11.5-17.5); White Blood Count 12.1 K/mm3 (4.8-10.8)
[2021-07-21 08:00] VITALS: BP 115/68; PULSE 86; TEMP 36.9; O2SAT 91
[2021-07-21 08:03] LABS: Alanine Aminotransferase 39 U/L (12-78); Albumin Level 2.6 g/dl (3.5-5.0); Albumin/Globulin Ratio 1.1 (1.1-1.8); Alkaline Phosphatase 75 U/L (38-126); Anion Gap 4.1 mEq/L (5-15); Aspartate Amino Transferase 39 U/L (17-59); Bilirubin,Total 1.2 mg/dl (0.2-1.3); Blood Urea Nitrogen 17 mg/dl (9-20); Carbon Dioxide 27 mmol/L (22.0-30.0); Chloride 111 mmol/L (98-107); Creatinine Clearance Estimated 74 mL/min (50-200); Estimated Glomerular Filt Rate 95 ml/min (>60); GFR (African American) 115 ML/MIN (>60); Globulin 2.4 g/dL (1.3-3.2); Glucose 128 mg/dl (74-100); Potassium 3.1 mmoL/L (3.5-5.1); Sodium 139 mmol/L (136-145)
--- NOTE | 2021-07-21 08:32 | HMH.GSPN ---
Subjective Narrative: Patient without complaints. Tolerating full liquid. Has had numerous bowel movements. Not much appetite. Progress Note: A&P (1) Bowel obstruction Status: Acute Assessment and plan: Slowly improving ileus. Likely does have degree of gastroparesis. Will slowly advance diet. (2) Upper GI bleeding Status: Acute (3) Acute kidney injury Status: Acute (4) Hypotension Status: Acute (5) Abnormal CXR Status: Acute (6) HTN (hypertension) Status: Chronic (7) BPH (benign prostatic hyperplasia) Status: Chronic (8) Obesity Status: Acute (9) Ileus Status: Acute (10) Lactic acid acidosis Status: Acute (11) CRUZ treated with BiPAP Status: Chronic (12) Type 2 diabetes mellitus Status: Acute (13) Hyponatremia Status: Acute (14) Hypokalemia Status: Acute Exam Vital signs and Labs for Last 24 Hours: Temp Pulse Resp BP Pulse Ox 98.5 F 86 22 115/68 91 L 07/21/21 08:00 07/21/21 08:00 07/20/21 16:00 07/21/21 08:00 07/21/21 08:00 Laboratory Results - last 24 hr 07/20/21 22:37: POC Glucose 140 H 07/21/21 04:46: POC Glucose 123 H 07/21/21 07:30: WBC 12.1 H D, RBC 3.67 L, Hgb 11.8 L, Hct 37.8 L, MCV 103.0 H, MCH 32.3 H, MCHC 31.3 L, RDW 14.6, Plt Count 377, MPV 8.2, Neut % (Auto) 76.8, Lymph % (Auto) 14.1, [place] % (Auto) 4.0, Eos % (Auto) 4.2, Baso % (Auto) 0.9, Neut # (Auto) 9.3 H, Lymph # (Auto) 1.7, [place] # (Auto) 0.5, Eos # (Auto) 0.5 H, Baso # (Auto) 0.1 07/21/21 07:30: Sodium 139, Potassium 3.1 L, Chloride 111 H, Carbon Dioxide 27, Anion Gap 4.1 L, BUN 17, Creatinine 0.80, Estimated Creat Clear 74, Estimated GFR 95, Est GFR ( Amer) 115, Glucose 128 H, Calcium 9.0, Total Bilirubin 1.2, AST 39, ALT 39, Alkaline Phosphatase 75, Total Protein 5.0 L, Albumin 2.6 L, Globulin 2.4, Albumin/Globulin Ratio 1.1 I & O for Last 24 hours: Intake & Output 07/18/21 07/19/21 07/20/21 07/21/21 11:59 11:59 11:59 11:59 Intake Total 2930 / 2930 960 / 960 600 / 600 360 / 360 Output Total 1200 / 1200 900 / 1125 2050 / 2350 900 / 900 Balance 1730 / 1730 60 / -165 -1450 / -1750 -540 / -540 Weight 347 lb 11.2 oz 347 lb 10.703 oz 352 lb 11.2 oz 352 lb 11.834 oz Microbiology Reports for the Last 24 Hours: Microbiology 07/18/21 20:00 Urine,Catheterized Urine Culture - Preliminary Gram Positive Cocci Gram Positive Cocci#2 - *Routine Abdominal Exam Present: distended
--- NOTE | 2021-07-21 08:40 | HMH.ACPN2 ---
<Nadine Flores - Last Filed: 07/21/21 08:40> Internal Medicine - PN: Subj *Date: 07/21/21 *Time: 08:40 Interval history: Patient states he is feeling better today. He drank 2 Glucerna for breakfast but does not feel like eating any food. He denies any pain. He states his abdomen is still distended and he is having some swelling in his left foot and ankle. Exam Vital signs and Labs for Last 24 Hours: Temp Pulse Resp BP Pulse Ox 98.5 F 86 22 115/68 91 L 07/21/21 08:00 07/21/21 08:00 07/20/21 16:00 07/21/21 08:00 07/21/21 08:00 Laboratory Results - last 24 hr 07/20/21 22:37: POC Glucose 140 H 07/21/21 04:46: POC Glucose 123 H 07/21/21 07:30: WBC 12.1 H D, RBC 3.67 L, Hgb 11.8 L, Hct 37.8 L, MCV 103.0 H, MCH 32.3 H, MCHC 31.3 L, RDW 14.6, Plt Count 377, MPV 8.2, Neut % (Auto) 76.8, Lymph % (Auto) 14.1, [place] % (Auto) 4.0, Eos % (Auto) 4.2, Baso % (Auto) 0.9, Neut # (Auto) 9.3 H, Lymph # (Auto) 1.7, [place] # (Auto) 0.5, Eos # (Auto) 0.5 H, Baso # (Auto) 0.1 07/21/21 07:30: Sodium 139, Potassium 3.1 L, Chloride 111 H, Carbon Dioxide 27, Anion Gap 4.1 L, BUN 17, Creatinine 0.80, Estimated Creat Clear 74, Estimated GFR 95, Est GFR ( Amer) 115, Glucose 128 H, Calcium 9.0, Total Bilirubin 1.2, AST 39, ALT 39, Alkaline Phosphatase 75, Total Protein 5.0 L, Albumin 2.6 L, Globulin 2.4, Albumin/Globulin Ratio 1.1 I & O for Last 24 hours: Intake & Output 07/18/21 07/19/21 07/20/21 07/21/21 11:59 11:59 11:59 11:59 Intake Total 2930 / 2930 960 / 960 600 / 600 360 / 360 Output Total 1200 / 1200 900 / 1125 2050 / 2350 900 / 900 Balance 1730 / 1730 60 / -165 -1450 / -1750 -540 / -540 Weight 347 lb 11.2 oz 347 lb 10.703 oz 352 lb 11.2 oz 352 lb 11.834 oz Microbiology Reports for the Last 24 Hours: Microbiology 07/18/21 20:00 Urine,Catheterized Urine Culture - Preliminary Gram Positive Cocci Gram Positive Cocci#2 - Constitutional no acute distress - *Routine HEENT Exam Head: Present: normocephalic Eye: Present: EOMI, PERRL ENT: Present: mucous membranes moist - *Routine Neck Exam Present: supple. Absent: lymphadenopathy - *Routine Respiratory Exam Present: CTA bilaterally - *Routine Cardiovascular Exam Present: RRR - *Routine Abdominal Exam Present: soft, normoactive bowel sounds, distended. Absent: tenderness - *Routine Extremities Exam Present: edema (bilateral lower extremities, worse in the left ankle and foot today). Absent: cyanosis, clubbing - *Routine Skin Exam Present: warm. Absent: rash - *Routine Neurological Exam Present: alert, oriented X3 Assessment and Plan (1) Bowel obstruction Status: Acute Category: Medical Code(s): K56.609 - Unspecified intestinal obstruction, unspecified as to partial versus complete obstruction (2) Upper GI bleeding Status: Acute Category: Medical Code(s): K92.2 - Gastrointestinal hemorrhage, unspecified (3) Acute kidney injury Status: Acute Category: Medical Code(s): N17.9 - Acute kidney failure, unspecified (4) Hypotension Status: Acute Category: Medical Code(s): I95.9 - Hypotension, unspecified (5) Abnormal CXR Status: Acute Category: Medical Code(s): R93.89 - Abnormal findings on diagnostic imaging of other specified body structures (6) HTN (hypertension) Status: Chronic Category: Medical Code(s): I10 - Essential (primary) hypertension (7) BPH (benign prostatic hyperplasia) Status: Chronic Category: Medical Code(s): N40.0 - Benign prostatic hyperplasia without lower urinary tract symptoms (8) Obesity Status: Acute Category: Medical Code(s): E66.9 - Obesity, unspecified (9) Ileus Status: Acute Category: Medical Code(s): K56.7 - Ileus, unspecified (10) Lactic acid acidosis Status: Acute Category: Medical Code(s): E87.2 - Acidosis (11) CRUZ treated with BiPAP Status: Chronic Category: Medical Cod
[2021-07-21 11:22] LABS: POC Glucose,Bedside 205 (70-110)
[2021-07-21 11:22] LABS: POC Glucose,Bedside 164 (70-110)
[2021-07-21 16:00] VITALS: BP 122/54; PULSE 80; RESP 21; TEMP 36.5; O2SAT 93
[2021-07-21 20:00] VITALS: BP 137/60; PULSE 81; RESP 18; TEMP 36.6; O2SAT 94; O2SAT 96
--- NOTE | 2021-07-22 03:38 | PC.NURSE ---
Pt has slept intermittently this shift. Has used cpap while asleep. Remains on room air. No complaints of soa or chest pain. LS diminished to tiffanie bases. Pt has dependent edema to trunk, yaritza area, bilateral upper legs, and left foot. Pt reports his skin feels tight . Pt only had mild edema at beginning of shift. Pt encouraged to move around the bed, turn and reposition. Pt will turn in the bed with assistance x1 staff. BS hyperactive. Pt abdomen is still very firm, round, and distended. Denies any nausea or vomiting. Tolerating full liquid diet. Pt still with loose watery/mucousy stools, and is incontinent. VSS. Pt has no compaints at this time. Will continue to monitor.
[2021-07-22 04:00] VITALS: BP 133/57; PULSE 79; RESP 17; TEMP 36.8; O2SAT 94
[2021-07-22 05:00] VITALS: BMI 47.7
[2021-07-22 06:07] LABS: POC Glucose,Bedside 174 (70-110)
[2021-07-22 06:07] LABS: POC Glucose,Bedside 222 (70-110)
[2021-07-22 06:07] LABS: POC Glucose,Bedside 131 (70-110)
[2021-07-22 07:47] VITALS: BP 119/61; PULSE 83; RESP 16; TEMP 36.7; O2SAT 94
[2021-07-22 07:52] LABS: POC Glucose,Bedside 129 (70-110)
[2021-07-22 08:00] VITALS: PULSE 83; O2SAT 94
--- NOTE | 2021-07-22 08:09 | XR_ITS ---
FINAL REPORT CLINICAL HISTORY: ABDOMINAL DISTENSION, POSSIBLE OBSTRUCTION COMPARISON: 07/17/2021 FINDINGS: TWO VIEW ABDOMEN SERIES Flat and upright views of the abdomen were obtained. Nasogastric tube has been removed. There are multiple air-filled distended large and small bowel loops, slightly worse than prior. Findings are favored to represent an ileus over distal obstruction. No free air is identified. IMPRESSION: Favor ileus over distal obstruction. Reviewed, Interpreted and Dictated by Misbah Andre III, MD Transcribed by Cordelia Root Authenticated by Misbah Andre III, MD on 07/22/2021 02:31:32 PM [facility]
--- NOTE | 2021-07-22 08:17 | HMH.ACPN2 ---
<Nadine Flores - Last Filed: 07/22/21 08:17> Internal Medicine - PN: Subj *Date: 07/22/21 *Time: 08:17 Interval history: Patient is feeling better this morning. He was not able to get up in a chair yesterday. He continues to have bowel movements and is eating. He denies any pain. He is [facility]. Exam Vital signs and Labs for Last 24 Hours: Temp Pulse Resp BP Pulse Ox 98.1 F 83 16 119/61 94 L 07/22/21 07:47 07/22/21 07:47 07/22/21 07:47 07/22/21 07:47 07/22/21 07:47 Laboratory Results - last 24 hr 07/20/21 14:15: POC Glucose 205 H 07/20/21 18:04: POC Glucose 164 H 07/21/21 11:45: POC Glucose 174 H 07/21/21 15:47: POC Glucose 222 H 07/21/21 20:17: POC Glucose 131 H 07/22/21 06:16: POC Glucose 129 H I & O for Last 24 hours: Intake & Output 07/19/21 07/20/21 07/21/21 07/22/21 11:59 11:59 11:59 11:59 Intake Total 960 / 960 600 / 600 860 / 860 1130 / 1130 Output Total 900 / 1125 2050 / 2350 1250 / 1250 2400 / 2400 Balance 60 / -165 -1450 / -1750 -390 / -390 -1270 / -1270 Weight 347 lb 10.703 oz 352 lb 11.2 oz 352 lb 11.834 oz 352 lb 11.834 oz Microbiology Reports for the Last 24 Hours: Microbiology 07/18/21 20:00 Urine,Catheterized Urine Culture - Final Staphylococcus epidermidis Enterococcus faecalis 07/13/21 12:28 Sputum - Expectorated Sputum Gram Stain - Final 07/13/21 12:28 Sputum - Expectorated Sputum Sputum Culture - Final Enterobacter cloacae - Constitutional no acute distress - *Routine Respiratory Exam Present: CTA bilaterally - *Routine Cardiovascular Exam Present: RRR - *Routine Abdominal Exam Present: soft, normoactive bowel sounds, distended, firm. Absent: tenderness - *Routine Extremities Exam Present: edema (bilateral LE, worse on the left) - *Routine Skin Exam Present: warm. Absent: rash - *Routine Neurological Exam Present: alert, oriented X3 Assessment and Plan (1) Bowel obstruction Status: Acute Category: Medical Code(s): K56.609 - Unspecified intestinal obstruction, unspecified as to partial versus complete obstruction (2) Upper GI bleeding Status: Acute Category: Medical Code(s): K92.2 - Gastrointestinal hemorrhage, unspecified (3) Acute kidney injury Status: Acute Category: Medical Code(s): N17.9 - Acute kidney failure, unspecified (4) Hypotension Status: Acute Category: Medical Code(s): I95.9 - Hypotension, unspecified (5) Abnormal CXR Status: Acute Category: Medical Code(s): R93.89 - Abnormal findings on diagnostic imaging of other specified body structures (6) HTN (hypertension) Status: Chronic Category: Medical Code(s): I10 - Essential (primary) hypertension (7) BPH (benign prostatic hyperplasia) Status: Chronic Category: Medical Code(s): N40.0 - Benign prostatic hyperplasia without lower urinary tract symptoms (8) Obesity Status: Acute Category: Medical Code(s): E66.9 - Obesity, unspecified (9) Ileus Status: Acute Category: Medical Code(s): K56.7 - Ileus, unspecified (10) Lactic acid acidosis Status: Acute Category: Medical Code(s): E87.2 - Acidosis (11) CRUZ treated with BiPAP Status: Chronic Category: Medical Code(s): G47.33 - Obstructive sleep apnea (adult) (pediatric) (12) Type 2 diabetes mellitus Status: Acute Category: Medical Code(s): E11.9 - Type 2 diabetes mellitus without complications (13) Hyponatremia Status: Acute Category: Medical Code(s): E87.1 - Hypo-osmolality and hyponatremia (14) Hypokalemia Status: Acute Category: Medical Code(s): E87.6 - Hypokalemia - Assessment and plan all Dx Assessment and Plan for all problems:: 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 If normal, he may be able to be discharged back to the [facility] for rehab. <Chon Armijo
--- NOTE | 2021-07-22 08:37 | P.PN_ITS ---
Subjective Narrative: Patient has been eating. Taking in some soft diet and Glucerna. Progress Note: A&P (1) Bowel obstruction Status: Acute (2) Upper GI bleeding Status: Acute (3) Acute kidney injury Status: Acute (4) Hypotension Status: Acute (5) Abnormal CXR Status: Acute (6) HTN (hypertension) Status: Chronic (7) BPH (benign prostatic hyperplasia) Status: Chronic (8) Obesity Status: Acute (9) Ileus Status: Acute Assessment and plan: Due to his significant abdominal distention I will plan to obtain abdominal x- rays. Likely ileus. (10) Lactic acid acidosis Status: Acute (11) CRUZ treated with BiPAP Status: Chronic (12) Type 2 diabetes mellitus Status: Acute (13) Hyponatremia Status: Acute (14) Hypokalemia Status: Acute Exam Vital signs and Labs for Last 24 Hours: Temp Pulse Resp BP Pulse Ox 98.1 F 83 16 119/61 94 L 07/22/21 07:47 07/22/21 07:47 07/22/21 07:47 07/22/21 07:47 07/22/21 07:47 Laboratory Results - last 24 hr 07/20/21 14:15: POC Glucose 205 H 07/20/21 18:04: POC Glucose 164 H 07/21/21 11:45: POC Glucose 174 H 07/21/21 15:47: POC Glucose 222 H 07/21/21 20:17: POC Glucose 131 H 07/22/21 06:16: POC Glucose 129 H I & O for Last 24 hours: Intake & Output 07/19/21 07/20/21 07/21/21 07/22/21 11:59 11:59 11:59 11:59 Intake Total 960 / 960 600 / 600 860 / 860 1130 / 1130 Output Total 900 / 1125 2050 / 2350 1250 / 1250 2400 / 2400 Balance 60 / -165 -1450 / -1750 -390 / -390 -1270 / -1270 Weight 347 lb 10.703 oz 352 lb 11.2 oz 352 lb 11.834 oz 352 lb 11.834 oz Microbiology Reports for the Last 24 Hours: Microbiology 07/18/21 20:00 Urine,Catheterized Urine Culture - Final Staphylococcus epidermidis Enterococcus faecalis 07/13/21 12:28 Sputum - Expectorated Sputum Gram Stain - Final 07/13/21 12:28 Sputum - Expectorated Sputum Sputum Culture - Final Enterobacter cloacae - *Routine Abdominal Exam Present: distended
[2021-07-22 12:56] LABS: POC Glucose,Bedside 156 (70-110)
--- NOTE | 2021-07-22 13:16 | CT_ITS ---
FINAL REPORT CLINICAL HISTORY: ABDOMINAL DISTENSION, rectal contrast and iv COMPARISON: July 15, 2021 FINDINGS: CT OF THE ABDOMEN AND PELVIS WITH CONTRAST Axial CT images of the abdomen and pelvis were obtained after the administration of oral and iv contrast. Coronal reformatted images were also obtained and reviewed.This study was performed with techniques to keep radiation doses as low as reasonably achievable (ALARA). Individualized dose reduction techniques using automated exposure control or adjustment of mA and/or kV according to the patient's size were employed. Abdomen: There is artifact secondary to patient body habitus. There is bibasilar atelectasis. There are small bilateral pleural effusions. There is bilateral gynecomastia. The heart is normal in size. The liver has an unremarkable appearance, without evidence of mass or biliary ductal dilatation. The gallbladder is moderately distended. The spleen is unremarkable. No adrenal mass is present. The pancreas has an unremarkable appearance. The kidneys are normal, without evidence of mass or hydronephrosis. The aorta is normal in caliber. There is no free fluid or adenopathy. There is an umbilical hernia containing fat. Oral contrast was 1st given and is seen in the distal small bowel, cecum and ascending colon. There are multiple air and fluid-filled distended small bowel loops. Trans rectal contrast was administered and the is seen to the distal transverse colon. There is no evidence of obstruction. Dilated bowel loops are most likely due to ileus. Pelvis: The appendix is normal in contrast field. The urinary bladder is unremarkable. No inflammatory process is seen. There is no evidence of mass or adenopathy. There is no evidence of bowel obstruction. IMPRESSION: Dilated air and fluid-filled small bowel loops most likely due to ileus. Reviewed, Interpreted and Dictated by Misbah Andre III, MD Transcribed by Mack Vera Authenticated by Misbah Andre III, MD on 07/22/2021 04:10:16 PM [facility]
[2021-07-22 15:46] VITALS: BP 155/71; PULSE 83; RESP 18; TEMP 36.8; O2SAT 95
[2021-07-22 20:00] VITALS: BP 152/78; PULSE 80; RESP 18; TEMP 36.4; O2SAT 94; O2SAT 96
[2021-07-22 20:47] LABS: POC Glucose,Bedside 155 (70-110)
[2021-07-22 21:21] LABS: POC Glucose,Bedside 141 (70-110)
[2021-07-23] VITALS: BP 150/83; PULSE 80; RESP 16; TEMP 36.7; O2SAT 94
[2021-07-23 04:00] VITALS: BP 145/77; PULSE 76; RESP 18; TEMP 36.7; O2SAT 95
[2021-07-23 05:00] VITALS: BMI 47.5
--- NOTE | 2021-07-23 05:06 | PC.NURSE ---
patient has rested fairly well this shift. No acute changes from initial assessment. VSS. Received a full bath and bed change this shift, tolerated well. Tolerating clear liquids well. 3 mucous like bms noted this shift. Generalized pitting edema remains to trunk, thighs, scrotal area, and BLE. Pt legs are elevated, scrotal area elevated. Pt repositioned in the bed for comfort. No distress noted. Will continue to monitor.
[2021-07-23 06:36] LABS: MANUAL DIFFERENTIAL MANUAL DIFFERENTIAL (MANUAL DIFF)
[2021-07-23 06:39] LABS: Basophils # 0.1 K/mm3 (0-0.2); Basophils % 0.4 % (0.1-2.0); Eosinophils # 0.3 K/mm3 (0.0-0.4); Eosinophils % 2.4 % (0.1-12.0); Hematocrit 38.4 % (42.0-52.0); Hemoglobin 11.8 g/dL (14.1-18.0); Lymphocytes # 1.3 K/mm3 (0.7-4.5); Lymphocytes % 11.2 % (10-50); Mean Corpuscular HGB Conc 30.8 g/dL (31.8-35.4); Mean Corpuscular Hemoglobin 32.4 pg (27.0-31.2); Mean Corpuscular Volume 105.3 fl (80-94); Mean Platelet Volume 8.8 fl (7.4-10.4); Monocytes # 0.5 K/mm3 (0.1-1.0); Monocytes % 4.5 % (1.7-9.3); Neutrophils # 9.4 K/mm3 (1.8-7.8); Neutrophils % 81.4 % (37.0-80.0); Platelet Count 344 K/mm3 (142-424); Red Blood Count 3.65 M/mm3 (4.60-6.20); Red Cell Distribution Width 15.4 % (11.5-17.5); White Blood Count 11.6 K/mm3 (4.8-10.8)
[2021-07-23 06:43] LABS: Eosinophils % 1 % (0-3); Hypochromasia 2+; Lymphocytes % 12 % (10-50); Macrocytosis 2+; Neutrophils % 83 % (42-76); Platelet Estimate Normal; Total Cells Counted 100
[2021-07-23 06:52] LABS: Blood Urea Nitrogen 17 mg/dl (9-20); Calcium 8.8 mg/dl (8.4-10.2); Carbon Dioxide 26 mmol/L (22.0-30.0); Chloride 107 mmol/L (98-107); Creatinine Clearance Estimated 74 mL/min (50-200); Estimated Glomerular Filt Rate 111 ml/min (>60); GFR (African American) 135 ML/MIN (>60); Glucose 124 mg/dl (74-100); Magnesium 1.5 mg/dl (1.6-2.3); Sodium 137 mmol/L (136-145)
[2021-07-23 08:00] VITALS: BP 157/84; PULSE 76; RESP 18; TEMP 36.8; O2SAT 95; O2SAT 97
--- NOTE | 2021-07-23 08:01 | PC.NURSE ---
0715 - Notified Dr. Cortes during rounds of critical K+ reported. No new orders at this time.
--- NOTE | 2021-07-23 08:01 | PC.NURSE ---
Report given to Nasir Parham RN
--- NOTE | 2021-07-23 09:35 | P.PN_ITS ---
Subjective Patient reports: no new complaints Narrative: Passing gas and having bowel movements. Progress Note: A&P (1) Bowel obstruction Status: Acute (2) Upper GI bleeding Status: Acute (3) Acute kidney injury Status: Acute (4) Hypotension Status: Acute (5) Abnormal CXR Status: Acute (6) HTN (hypertension) Status: Chronic (7) BPH (benign prostatic hyperplasia) Status: Chronic (8) Obesity Status: Acute (9) Ileus Status: Acute Assessment and plan: CT scan and plain imaging yesterday reveals findings most consistent with ileus without obstruction. On Reglan and simethicone. On clear liquids. Should be okay for nutritional shakes to be added. May need replacement potassium and magnesium (10) Lactic acid acidosis Status: Acute (11) CRUZ treated with BiPAP Status: Chronic (12) Type 2 diabetes mellitus Status: Acute (13) Hyponatremia Status: Acute (14) Hypokalemia Status: Acute Exam Vital signs and Labs for Last 24 Hours: Temp Pulse Resp BP Pulse Ox 98.2 F 76 18 157/84 H 97 07/23/21 08:00 07/23/21 08:00 07/23/21 08:00 07/23/21 08:00 07/23/21 08:00 Laboratory Results - last 24 hr 07/22/21 12:48: POC Glucose 156 H 07/22/21 17:31: POC Glucose 155 H 07/22/21 21:14: POC Glucose 141 H 07/23/21 06:11: WBC 11.6 H, RBC 3.65 L, Hgb 11.8 L, Hct 38.4 L, MCV 105.3 H, MCH 32.4 H, MCHC 30.8 L, RDW 15.4, Plt Count 344, MPV 8.8, Neut % (Auto) 81.4 H, Lymph % (Auto) 11.2, [place] % (Auto) 4.5, Eos % (Auto) 2.4, Baso % (Auto) 0.4, Neut # (Auto) 9.4 H, Lymph # (Auto) 1.3, [place] # (Auto) 0.5, Eos # (Auto) 0.3, Baso # (Auto) 0.1, Total Counted 100, Neutrophils % (Manual) 83 H, Band Neutrophils % 4.0, Lymphocytes % (Manual) 12, Eosinophils % (Manual) 1, Platelet Estimate Normal, Hypochromasia 2+, Macrocytosis 2+ 07/23/21 06:11: Sodium 137, Potassium 3.0 L, Chloride 107, Carbon Dioxide 26, Anion Gap 7.0, BUN 17, Creatinine 0.70, Estimated Creat Clear 74, Estimated GFR 111, Est GFR ( Amer) 135, Glucose 124 H, Calcium 8.8, Magnesium 1.5 L I & O for Last 24 hours: Intake & Output 07/20/21 07/21/21 07/22/21 07/23/21 11:59 11:59 11:59 11:59 Intake Total 600 / 600 860 / 860 1130 / 1130 480 / 480 Output Total 2050 / 2350 1250 / 1250 2400 / 2400 250 / 250 Balance -1450 / -1750 -390 / -390 -1270 / -1270 230 / 230 Weight 352 lb 11.2 oz 352 lb 11.834 oz 352 lb 11.834 oz 351 lb 4.8 oz Microbiology Reports for the Last 24 Hours: Microbiology 07/18/21 20:00 Urine,Catheterized Urine Culture - Final Staphylococcus epidermidis Enterococcus faecalis - *Routine Abdominal Exam Present: distended. Absent: tenderness
--- NOTE | 2021-07-23 09:43 | HMH.ACPN2 ---
Internal Medicine - PN: Subj *Date: 07/23/21 *Time: 09:44 Interval history: States he feels better today than he has for several days. Results of x-rays and CT scan from yesterday reviewed. Note he was started on Reglan last night. Continues to have loose stools. Tolerating clear liquids. Denies abdominal pain. Exam Vital signs and Labs for Last 24 Hours: Temp Pulse Resp BP Pulse Ox 98.2 F 76 18 157/84 H 97 07/23/21 08:00 07/23/21 08:00 07/23/21 08:00 07/23/21 08:00 07/23/21 08:00 Laboratory Results - last 24 hr 07/22/21 12:48: POC Glucose 156 H 07/22/21 17:31: POC Glucose 155 H 07/22/21 21:14: POC Glucose 141 H 07/23/21 06:11: WBC 11.6 H, RBC 3.65 L, Hgb 11.8 L, Hct 38.4 L, MCV 105.3 H, MCH 32.4 H, MCHC 30.8 L, RDW 15.4, Plt Count 344, MPV 8.8, Neut % (Auto) 81.4 H, Lymph % (Auto) 11.2, [place] % (Auto) 4.5, Eos % (Auto) 2.4, Baso % (Auto) 0.4, Neut # (Auto) 9.4 H, Lymph # (Auto) 1.3, [place] # (Auto) 0.5, Eos # (Auto) 0.3, Baso # (Auto) 0.1, Total Counted 100, Neutrophils % (Manual) 83 H, Band Neutrophils % 4.0, Lymphocytes % (Manual) 12, Eosinophils % (Manual) 1, Platelet Estimate Normal, Hypochromasia 2+, Macrocytosis 2+ 07/23/21 06:11: Sodium 137, Potassium 3.0 L, Chloride 107, Carbon Dioxide 26, Anion Gap 7.0, BUN 17, Creatinine 0.70, Estimated Creat Clear 74, Estimated GFR 111, Est GFR ( Amer) 135, Glucose 124 H, Calcium 8.8, Magnesium 1.5 L I & O for Last 24 hours: Intake & Output 07/20/21 07/21/21 07/22/21 07/23/21 11:59 11:59 11:59 11:59 Intake Total 600 / 600 860 / 860 1130 / 1130 480 / 480 Output Total 2050 / 2350 1250 / 1250 2400 / 2400 250 / 250 Balance -1450 / -1750 -390 / -390 -1270 / -1270 230 / 230 Weight 352 lb 11.2 oz 352 lb 11.834 oz 352 lb 11.834 oz 351 lb 4.8 oz Microbiology Reports for the Last 24 Hours: Microbiology 07/18/21 20:00 Urine,Catheterized Urine Culture - Final Staphylococcus epidermidis Enterococcus faecalis Narrative: Alert and oriented. Lungs are clear anteriorly. Heart is regular. Abdomen is distended and firm but nontender. High-pitched bowel sounds noted. Dependent edema of sacrum and scrotum. Leg edema improved. Urine culture growing staph edematous and Enterococcus Assessment and Plan (1) Ileus Status: Acute Category: Medical Code(s): K56.7 - Ileus, unspecified (2) Acute kidney injury Status: Acute Category: Medical Code(s): N17.9 - Acute kidney failure, unspecified (3) Abnormal CXR Status: Acute Category: Medical Code(s): R93.89 - Abnormal findings on diagnostic imaging of other specified body structures (4) HTN (hypertension) Status: Chronic Category: Medical Code(s): I10 - Essential (primary) hypertension (5) BPH (benign prostatic hyperplasia) Status: Chronic Category: Medical Code(s): N40.0 - Benign prostatic hyperplasia without lower urinary tract symptoms (6) Obesity Status: Acute Category: Medical Code(s): E66.9 - Obesity, unspecified (7) Lactic acid acidosis Status: Acute Category: Medical Code(s): E87.2 - Acidosis (8) CRUZ treated with BiPAP Status: Chronic Category: Medical Code(s): G47.33 - Obstructive sleep apnea (adult) (pediatric) (9) Type 2 diabetes mellitus Status: Acute Category: Medical Code(s): E11.9 - Type 2 diabetes mellitus without complications (10) Hyponatremia Status: Acute Category: Medical Code(s): E87.1 - Hypo-osmolality and hyponatremia (11) Hypokalemia Status: Acute Category: Medical Code(s): E87.6 - Hypokalemia (12) Hypomagnesemia Status: Acute Category: Medical Code(s): E83.42 - Hypomagnesemia (13) Urinary tract infection Status: Acute Category: Medical Code(s): N39.0 - Urinary tract infection, site not specified (14) Enterococcus as the cause of diseases classified elsewhere Status: Acute Category: Medical Code(s): B95.2 - Enterococcus
--- NOTE | 2021-07-23 10:20 | HMH.PHACONS ---
- Pharmacy Consult Date: 07/23/21 Time: 10:20 Referring provider: DR. TAVARES Reason for Consult:: VANCOMYCIN DOSING Allergies and ADEs:: Allergies Allergy/AdvReac Type Severity Reaction Status Date / Time hydrocodone Allergy Mild Verified 07/12/21 12:09 Home Medications:: Home Medications Medication Instructions Recorded Confirmed Type Acetaminophen [Tylenol 500mg 500 mg PO Q6HP PRN 07/12/21 07/13/21 History tablet] Aspirin [Aspirin 81mg chewable 81 mg PO DAILY 07/12/21 07/12/21 History tab] Bisacodyl [Bisacodyl 10mg Supp] 10 mg RC DAILYP PRN 07/12/21 07/12/21 History Bisacodyl [Women's Laxative] 5 mg PO DAILYP PRN 07/12/21 07/13/21 History Famotidine [Pepcid 20mg Tablet] 20 mg PO BID 07/12/21 07/12/21 History Olmesartan Medoxomil 20 mg PO DAILY 07/12/21 07/12/21 History Oxycodone HCl/Acetaminophen 1 each PO Q4HP PRN 07/12/21 07/12/21 History [Oxycodone-Acetaminophen 5-325] Pioglitazone HCl 15 mg PO DAILY 07/12/21 07/12/21 History Promethazine HCl [Phenergan 12.5mg 12.5 mg PO DAILY PRN 07/12/21 07/12/21 History tablet] Sennosides/Docusate Sodium 1 each PO BID 07/12/21 07/13/21 History [Senna-Docusate Sodium Tablet] Simvastatin 40 mg PO HS 07/12/21 07/13/21 History Spironolactone 50 mg PO DAILY 07/12/21 07/12/21 History Tamsulosin HCl 0.4 mg PO HS 07/12/21 07/13/21 History allopurinoL [Allopurinol 100mg 100 mg PO DAILY 07/12/21 07/12/21 History tablet] polyethylene glycoL 3350 17 gm PO DAILYP PRN 07/12/21 07/13/21 History [Polyethylene Glycol 3350] Calcium Carbonate [Tums 500mg 500 mg PO TIDP PRN 01/12/22 01/12/22 History chewtab] Height: 1.83 m Weight: 159.347 kg Laboratory Results:: Laboratory Results - last 24 hr 07/22/21 12:48: POC Glucose 156 H 07/22/21 17:31: POC Glucose 155 H 07/22/21 21:14: POC Glucose 141 H 07/23/21 06:11: WBC 11.6 H, RBC 3.65 L, Hgb 11.8 L, Hct 38.4 L, MCV 105.3 H, MCH 32.4 H, MCHC 30.8 L, RDW 15.4, Plt Count 344, MPV 8.8, Neut % (Auto) 81.4 H, Lymph % (Auto) 11.2, [place] % (Auto) 4.5, Eos % (Auto) 2.4, Baso % (Auto) 0.4, Neut # (Auto) 9.4 H, Lymph # (Auto) 1.3, [place] # (Auto) 0.5, Eos # (Auto) 0.3, Baso # (Auto) 0.1, Total Counted 100, Neutrophils % (Manual) 83 H, Band Neutrophils % 4.0, Lymphocytes % (Manual) 12, Eosinophils % (Manual) 1, Platelet Estimate Normal, Hypochromasia 2+, Macrocytosis 2+ 07/23/21 06:11: Sodium 137, Potassium 3.0 L, Chloride 107, Carbon Dioxide 26, Anion Gap 7.0, BUN 17, Creatinine 0.70, Estimated Creat Clear 74, Estimated GFR 111, Est GFR ( Amer) 135, Glucose 124 H, Calcium 8.8, Magnesium 1.5 L Medical History: Reports:: BPH, Coronary Artery Disease, Diabetes Mellitus Type 2, Gastroesophageal Reflux Disease(GERD), Hyperlipidemia, Hypertension Denies:: Cancer, Diabetes Mellitus Type 1, Internal Pacemaker, MRSA Assessment and Plan (1) Ileus Status: Acute Category: Medical Code(s): K56.7 - Ileus, unspecified (2) Acute kidney injury Status: Acute Category: Medical Code(s): N17.9 - Acute kidney failure, unspecified (3) Abnormal CXR Status: Acute Category: Medical Code(s): R93.89 - Abnormal findings on diagnostic imaging of other specified body structures (4) HTN (hypertension) Status: Chronic Category: Medical Code(s): I10 - Essential (primary) hypertension (5) BPH (benign prostatic hyperplasia) Status: Chronic Category: Medical Code(s): N40.0 - Benign prostatic hyperplasia without lower urinary tract symptoms (6) Obesity Status: Acute Category: Medical Code(s): E66.9 - Obesity, unspecified (7) Lactic acid acidosis Status: Acute Category: Medical Code(s): E87.2 - Acidosis (8) CRUZ treated with BiPAP Status: Chronic Category: Medical Code(s): G47.33 - Obstructive sleep apnea (adult) (pediatric) (9) Type 2 diabetes mellitus Status: Acute Category: Medical Code(s): E11.9 - Type 2 diabetes mellitus without complications (10) Hyponatremia Status: Ac
[2021-07-23 16:00] VITALS: BP 142/73; PULSE 79; RESP 18; TEMP 36.9; O2SAT 94
[2021-07-23 20:00] VITALS: BP 126/71; PULSE 77; RESP 22; TEMP 36.6; O2SAT 95
[2021-07-24] VITALS: BP 133/72; PULSE 75; RESP 20; TEMP 36.8; O2SAT 95
[2021-07-24 04:00] VITALS: BP 147/69; PULSE 83; RESP 20; TEMP 36.7; O2SAT 93
[2021-07-24 04:57] VITALS: BMI 47.1
[2021-07-24 06:17] LABS: POC Glucose,Bedside 150 (70-110)
[2021-07-24 06:40] LABS: POC Glucose,Bedside 163 (70-110)
[2021-07-24 06:40] LABS: POC Glucose,Bedside 138 (70-110)
[2021-07-24 06:40] LABS: POC Glucose,Bedside 146 (70-110)
[2021-07-24 06:40] LABS: POC Glucose,Bedside 185 (70-110)
--- NOTE | 2021-07-24 07:21 | HMH.GSPN ---
Subjective Patient reports: no new complaints Narrative: Patient states that he feels pretty good. Passing a lot of gas. Progress Note: A&P (1) Ileus Status: Acute Assessment and plan: Full liquid (2) Acute kidney injury Status: Acute (3) Abnormal CXR Status: Acute (4) HTN (hypertension) Status: Chronic (5) BPH (benign prostatic hyperplasia) Status: Chronic (6) Obesity Status: Acute (7) Lactic acid acidosis Status: Acute (8) CRUZ treated with BiPAP Status: Chronic (9) Type 2 diabetes mellitus Status: Acute (10) Hyponatremia Status: Acute (11) Hypokalemia Status: Acute (12) Hypomagnesemia Status: Acute (13) Urinary tract infection Status: Acute (14) Enterococcus as the cause of diseases classified elsewhere Status: Acute Exam Vital signs and Labs for Last 24 Hours: Temp Pulse Resp BP Pulse Ox 98.1 F 83 20 147/69 H 93 L 07/24/21 04:00 07/24/21 04:00 07/24/21 04:00 07/24/21 04:00 07/24/21 04:00 Laboratory Results - last 24 hr 07/23/21 06:00: POC Glucose 146 H 07/23/21 11:36: POC Glucose 163 H 07/23/21 17:00: POC Glucose 185 H 07/23/21 22:26: POC Glucose 150 H 07/24/21 06:28: POC Glucose 138 H I & O for Last 24 hours: Intake & Output 07/21/21 07/22/21 07/23/21 07/24/21 11:59 11:59 11:59 11:59 Intake Total 860 / 860 1130 / 1130 480 / 480 1090 / 1090 Output Total 1250 / 1250 2400 / 2400 1050 / 1050 1100 / 1100 Balance -390 / -390 -1270 / -1270 -570 / -570 -10 / -10 Weight 352 lb 11.834 oz 352 lb 11.834 oz 351 lb 4.8 oz 348 lb 3.2 oz - *Routine Abdominal Exam Present: distended
[2021-07-24 08:00] VITALS: BP 129/69; PULSE 81; RESP 18; TEMP 36.6; O2SAT 93; O2SAT 94
[2021-07-24 08:10] LABS: MANUAL DIFFERENTIAL MANUAL DIFFERENTIAL (MANUAL DIFF)
[2021-07-24 08:23] LABS: Chloride 108 mmol/L (98-107); Sodium 138 mmol/L (136-145)
[2021-07-24 08:24] LABS: Potassium 3.1 mmoL/L (3.5-5.1)
[2021-07-24 08:26] LABS: Anion Gap 5.1 mEq/L (5-15); Blood Urea Nitrogen 17 mg/dl (9-20); Carbon Dioxide 28 mmol/L (22.0-30.0); Creatinine Clearance Estimated 74 mL/min (50-200); Estimated Glomerular Filt Rate 111 ml/min (>60); GFR (African American) 135 ML/MIN (>60)
[2021-07-24 08:27] LABS: Calcium 8.6 mg/dl (8.4-10.2); Glucose 113 mg/dl (74-100)
[2021-07-24 09:12] LABS: Basophils # 0.1 K/mm3 (0-0.2); Basophils % 0.5 % (0.1-2.0); Eosinophils # 0.3 K/mm3 (0.0-0.4); Eosinophils % 2.8 % (0.1-12.0); Hematocrit 36.8 % (42.0-52.0); Hemoglobin 11.7 g/dL (14.1-18.0); Lymphocytes # 1.3 K/mm3 (0.7-4.5); Lymphocytes % 12.5 % (10-50); Mean Corpuscular HGB Conc 31.6 g/dL (31.8-35.4); Mean Corpuscular Hemoglobin 32.3 pg (27.0-31.2); Mean Corpuscular Volume 102.1 fl (80-94); Mean Platelet Volume 8.3 fl (7.4-10.4); Monocytes # 0.6 K/mm3 (0.1-1.0); Monocytes % 5.6 % (1.7-9.3); Neutrophils # 8.2 K/mm3 (1.8-7.8); Neutrophils % 78.6 % (37.0-80.0); Platelet Count 359 K/mm3 (142-424); Red Blood Count 3.61 M/mm3 (4.60-6.20); Red Cell Distribution Width 15.4 % (11.5-17.5); White Blood Count 10.4 K/mm3 (4.8-10.8)
--- NOTE | 2021-07-24 09:24 | HMH.ACPN2 ---
Internal Medicine - PN: Subj *Date: 07/24/21 *Time: 09:24 Interval history: No new complaints. States he is passing more gas. No dysuria. Denies abdominal pain or nausea Exam Vital signs and Labs for Last 24 Hours: Temp Pulse Resp BP Pulse Ox 97.9 F 81 18 129/69 94 L 07/24/21 08:00 07/24/21 08:00 07/24/21 08:00 07/24/21 08:00 07/24/21 08:00 Laboratory Results - last 24 hr 07/23/21 06:00: POC Glucose 146 H 07/23/21 11:36: POC Glucose 163 H 07/23/21 17:00: POC Glucose 185 H 07/23/21 22:26: POC Glucose 150 H 07/24/21 06:28: POC Glucose 138 H 07/24/21 07:44: WBC 10.4, RBC 3.61 L, Hgb 11.7 L, Hct 36.8 L, MCV 102.1 H, MCH 32.3 H, MCHC 31.6 L, RDW 15.4, Plt Count 359, MPV 8.3, Neut % (Auto) 78.6, Lymph % (Auto) 12.5, [place] % (Auto) 5.6, Eos % (Auto) 2.8, Baso % (Auto) 0.5, Neut # (Auto) 8.2 H, Lymph # (Auto) 1.3, [place] # (Auto) 0.6, Eos # (Auto) 0.3, Baso # (Auto) 0.1 07/24/21 07:44: Sodium 138, Potassium 3.1 L, Chloride 108 H, Carbon Dioxide 28, Anion Gap 5.1, BUN 17, Creatinine 0.70, Estimated Creat Clear 74, Estimated GFR 111, Est GFR ( Amer) 135, Glucose 113 H, Calcium 8.6 I & O for Last 24 hours: Intake & Output 07/21/21 07/22/21 07/23/21 07/24/21 11:59 11:59 11:59 11:59 Intake Total 860 / 860 1130 / 1130 480 / 480 1090 / 1090 Output Total 1250 / 1250 2400 / 2400 1050 / 1050 1100 / 1100 Balance -390 / -390 -1270 / -1270 -570 / -570 -10 / -10 Weight 352 lb 11.834 oz 352 lb 11.834 oz 351 lb 4.8 oz 348 lb 3.2 oz Narrative: Alert, pleasant, no distress. Lungs are clear anteriorly. Heart is regular. Abdomen remains distended but nontender. Bowel sounds present but diminished. Extremities with persistent edema. Assessment and Plan (1) Ileus Status: Acute Category: Medical Code(s): K56.7 - Ileus, unspecified (2) Acute kidney injury Status: Acute Category: Medical Code(s): N17.9 - Acute kidney failure, unspecified (3) Abnormal CXR Status: Acute Category: Medical Code(s): R93.89 - Abnormal findings on diagnostic imaging of other specified body structures (4) HTN (hypertension) Status: Chronic Category: Medical Code(s): I10 - Essential (primary) hypertension (5) BPH (benign prostatic hyperplasia) Status: Chronic Category: Medical Code(s): N40.0 - Benign prostatic hyperplasia without lower urinary tract symptoms (6) Obesity Status: Acute Category: Medical Code(s): E66.9 - Obesity, unspecified (7) Lactic acid acidosis Status: Acute Category: Medical Code(s): E87.2 - Acidosis (8) CRUZ treated with BiPAP Status: Chronic Category: Medical Code(s): G47.33 - Obstructive sleep apnea (adult) (pediatric) (9) Type 2 diabetes mellitus Status: Acute Category: Medical Code(s): E11.9 - Type 2 diabetes mellitus without complications (10) Hyponatremia Status: Acute Category: Medical Code(s): E87.1 - Hypo-osmolality and hyponatremia (11) Hypokalemia Status: Acute Category: Medical Code(s): E87.6 - Hypokalemia (12) Hypomagnesemia Status: Acute Category: Medical Code(s): E83.42 - Hypomagnesemia (13) Urinary tract infection Status: Acute Category: Medical Code(s): N39.0 - Urinary tract infection, site not specified (14) Enterococcus as the cause of diseases classified elsewhere Status: Acute Category: Medical Code(s): B95.2 - Enterococcus as the cause of diseases classified elsewhere - Assessment and plan all Dx Assessment and Plan for all problems:: Continue per orders. Dr. Allran has full liquid diet. Potassium remains low. Increase spironolactone to twice daily.
[2021-07-24 10:28] LABS: Anisocytosis 1+; Eosinophils % 5 % (0-3); Lymphocytes % 8 % (10-50); Macrocytosis 1+; Monocytes % 3 % (2-9); Neutrophils % 83 % (42-76); Platelet Estimate Normal; Total Cells Counted 100
[2021-07-24 16:00] VITALS: BP 128/55; PULSE 81; RESP 22; TEMP 36.9; O2SAT 94
[2021-07-24 16:59] LABS: POC Glucose,Bedside 167 (70-110)
[2021-07-24 16:59] LABS: POC Glucose,Bedside 172 (70-110)
[2021-07-24 22:53] LABS: Vancomycin,Trough 22.6 ug/mL (5.0-10.0)
--- NOTE | 2021-07-24 22:57 | PC.NURSE ---
This RN was notified jose critical vanc trough of 22.6. Night watch notified, orders to hold this 2300 scheduled dose.
[2021-07-25 03:23] LABS: Basophils # 0.1 K/mm3 (0-0.2); Basophils % 0.6 % (0.1-2.0); Eosinophils # 0.2 K/mm3 (0.0-0.4); Eosinophils % 1.3 % (0.1-12.0); Hematocrit 38.2 % (42.0-52.0); Lymphocytes # 0.9 K/mm3 (0.7-4.5); Lymphocytes % 7.9 % (10-50); Mean Corpuscular HGB Conc 31.4 g/dL (31.8-35.4); Mean Corpuscular Hemoglobin 32.3 pg (27.0-31.2); Mean Corpuscular Volume 102.8 fl (80-94); Mean Platelet Volume 8.2 fl (7.4-10.4); Monocytes # 0.6 K/mm3 (0.1-1.0); Neutrophils # 10.1 K/mm3 (1.8-7.8); Neutrophils % 85.2 % (37.0-80.0); Platelet Count 318 K/mm3 (142-424); Red Blood Count 3.72 M/mm3 (4.60-6.20); Red Cell Distribution Width 15.6 % (11.5-17.5); White Blood Count 11.8 K/mm3 (4.8-10.8)
[2021-07-25 03:24] LABS: MANUAL DIFFERENTIAL MANUAL DIFFERENTIAL (MANUAL DIFF)
[2021-07-25 03:39] LABS: Chloride 105 mmol/L (98-107); Potassium 3.3 mmoL/L (3.5-5.1); Sodium 136 mmol/L (136-145)
[2021-07-25 03:42] LABS: Blood Urea Nitrogen 18 mg/dl (9-20); Creatinine Clearance Estimated 74 mL/min (50-200); Estimated Glomerular Filt Rate 111 ml/min (>60); GFR (African American) 135 ML/MIN (>60)
[2021-07-25 03:43] LABS: Anion Gap 6.3 mEq/L (5-15); Calcium 8.6 mg/dl (8.4-10.2); Carbon Dioxide 28 mmol/L (22.0-30.0)
[2021-07-25 03:44] LABS: Glucose 157 mg/dl (74-100)
[2021-07-25 03:51] LABS: Vancomycin,Peak 17.1 ug/ml (11-39)
[2021-07-25 04:00] VITALS: BP 136/73; PULSE 97; RESP 18; TEMP 37.6; O2SAT 94
[2021-07-25 05:00] VITALS: BMI 47.0
[2021-07-25 05:26] LABS: Hypochromasia 1+; Lymphocytes % 14 % (10-50); Macrocytosis 2+; Monocytes % 2 % (2-9); Neutrophils % 80 % (42-76); Platelet Estimate Normal; Total Cells Counted 100
--- NOTE | 2021-07-25 07:21 | HMH.GSPN ---
Subjective Narrative: Patient has had multiple large liquid bowel movements throughout the evening. He denies nausea or abdominal pain. He does complain of heartburn. He is on Protonix orally. Currently on full liquid diet. Progress Note: A&P (1) Ileus Status: Acute (2) Acute kidney injury Status: Acute (3) Abnormal CXR Status: Acute (4) HTN (hypertension) Status: Chronic (5) BPH (benign prostatic hyperplasia) Status: Chronic (6) Obesity Status: Acute (7) Lactic acid acidosis Status: Acute (8) CRUZ treated with BiPAP Status: Chronic (9) Type 2 diabetes mellitus Status: Acute (10) Hyponatremia Status: Acute (11) Hypokalemia Status: Acute (12) Hypomagnesemia Status: Acute (13) Urinary tract infection Status: Acute (14) Enterococcus as the cause of diseases classified elsewhere Status: Acute Assessment and Plan for All Diagnoses:: Attempt to advance diet Exam Vital signs and Labs for Last 24 Hours: Temp Pulse Resp BP Pulse Ox 99.7 F H 97 H 18 136/73 94 L 07/25/21 04:00 07/25/21 04:00 07/25/21 04:00 07/25/21 04:00 07/25/21 04:00 Laboratory Results - last 24 hr 07/24/21 07:44: WBC 10.4, RBC 3.61 L, Hgb 11.7 L, Hct 36.8 L, MCV 102.1 H, MCH 32.3 H, MCHC 31.6 L, RDW 15.4, Plt Count 359, MPV 8.3, Neut % (Auto) 78.6, Lymph % (Auto) 12.5, [place] % (Auto) 5.6, Eos % (Auto) 2.8, Baso % (Auto) 0.5, Neut # (Auto) 8.2 H, Lymph # (Auto) 1.3, [place] # (Auto) 0.6, Eos # (Auto) 0.3, Baso # (Auto) 0.1, Total Counted 100, Neutrophils % (Manual) 83 H, Band Neutrophils % 1.0, Lymphocytes % (Manual) 8 L, Monocytes % (Manual) 3, Eosinophils % (Manual) 5 H, Platelet Estimate Normal, RBC Morphology Not Reportable, Anisocytosis 1+, Macrocytosis 1+ 07/24/21 09:04: Sodium 138, Potassium 3.1 L, Chloride 108 H, Carbon Dioxide 28, Anion Gap 5.1, BUN 17, Creatinine 0.70, Estimated Creat Clear 74, Estimated GFR 111, Est GFR ( Amer) 135, Glucose 113 H, Calcium 8.6 07/24/21 12:41: POC Glucose 172 H 07/24/21 16:44: POC Glucose 167 H 07/24/21 22:25: Vancomycin Trough 22.6 H 07/25/21 03:15: WBC 11.8 H, RBC 3.72 L, Hgb 12.0 L, Hct 38.2 L, MCV 102.8 H, MCH 32.3 H, MCHC 31.4 L, RDW 15.6, Plt Count 318, MPV 8.2, Neut % (Auto) 85.2 H, Lymph % (Auto) 7.9 L, [place] % (Auto) 5.0, Eos % (Auto) 1.3, Baso % (Auto) 0.6, Neut # (Auto) 10.1 H, Lymph # (Auto) 0.9, [place] # (Auto) 0.6, Eos # (Auto) 0.2, Baso # (Auto) 0.1, Total Counted 100, Neutrophils % (Manual) 80 H, Band Neutrophils % 4.0, Lymphocytes % (Manual) 14, Monocytes % (Manual) 2, Platelet Estimate Normal, Hypochromasia 1+, Macrocytosis 2+ 07/25/21 03:15: Sodium 136, Potassium 3.3 L, Chloride 105, Carbon Dioxide 28, Anion Gap 6.3, BUN 18, Creatinine 0.70, Estimated Creat Clear 74, Estimated GFR 111, Est GFR ( Amer) 135, Glucose 157 H D, Calcium 8.6 07/25/21 03:15: Vancomycin Peak 17.1 I & O for Last 24 hours: Intake & Output 07/22/21 07/23/21 07/24/21 07/25/21 11:59 11:59 11:59 11:59 Intake Total 1130 / 1130 480 / 480 1940 / 1940 1460 / 1460 Output Total 2400 / 2400 1050 / 1050 1325 / 1325 2325 / 2325 Balance -1270 / -1270 -570 / -570 615 / 615 -865 / -865 Weight 352 lb 11.834 oz 351 lb 4.8 oz 348 lb 3.2 oz 347 lb 4.8 oz - *Routine Abdominal Exam Present: distended
[2021-07-25 08:00] VITALS: BP 149/79; PULSE 89; RESP 20; TEMP 36.6; O2SAT 95
[2021-07-25 08:06] LABS: POC Glucose,Bedside 142 (70-110)
[2021-07-25 08:06] LABS: POC Glucose,Bedside 161 (70-110)
--- NOTE | 2021-07-25 08:29 | HMH.PHACONS ---
- Pharmacy Consult Date: 07/24/21 Time: 21:00 Referring provider: DR TAVARES Reason for Consult:: VANCOMYCIN DOSING ADJUSTMENT Allergies and ADEs:: Allergies Allergy/AdvReac Type Severity Reaction Status Date / Time hydrocodone Allergy Mild Verified 07/12/21 12:09 Home Medications:: Home Medications Medication Instructions Recorded Confirmed Type Acetaminophen [Tylenol 500mg 500 mg PO Q6HP PRN 07/12/21 07/13/21 History tablet] Aspirin [Aspirin 81mg chewable 81 mg PO DAILY 07/12/21 07/12/21 History tab] Bisacodyl [Bisacodyl 10mg Supp] 10 mg RC DAILYP PRN 07/12/21 07/12/21 History Bisacodyl [Women's Laxative] 5 mg PO DAILYP PRN 07/12/21 07/13/21 History Famotidine [Pepcid 20mg Tablet] 20 mg PO BID 07/12/21 07/12/21 History Olmesartan Medoxomil 20 mg PO DAILY 07/12/21 07/12/21 History Oxycodone HCl/Acetaminophen 1 each PO Q4HP PRN 07/12/21 07/12/21 History [Oxycodone-Acetaminophen 5-325] Pioglitazone HCl 15 mg PO DAILY 07/12/21 07/12/21 History Promethazine HCl [Phenergan 12.5mg 12.5 mg PO DAILY PRN 07/12/21 07/12/21 History tablet] Sennosides/Docusate Sodium 1 each PO BID 07/12/21 07/13/21 History [Senna-Docusate Sodium Tablet] Simvastatin 40 mg PO HS 07/12/21 07/13/21 History Spironolactone 50 mg PO DAILY 07/12/21 07/12/21 History Tamsulosin HCl 0.4 mg PO HS 07/12/21 07/13/21 History allopurinoL [Allopurinol 100mg 100 mg PO DAILY 07/12/21 07/12/21 History tablet] polyethylene glycoL 3350 17 gm PO DAILYP PRN 07/12/21 07/13/21 History [Polyethylene Glycol 3350] Calcium Carbonate [Tums 500mg 500 mg PO TIDP PRN 01/12/22 01/12/22 History chewtab] Height: 1.83 m Weight: 157.533 kg Laboratory Results:: Laboratory Results - last 24 hr 07/24/21 07:44: WBC 10.4, RBC 3.61 L, Hgb 11.7 L, Hct 36.8 L, MCV 102.1 H, MCH 32.3 H, MCHC 31.6 L, RDW 15.4, Plt Count 359, MPV 8.3, Neut % (Auto) 78.6, Lymph % (Auto) 12.5, [place] % (Auto) 5.6, Eos % (Auto) 2.8, Baso % (Auto) 0.5, Neut # (Auto) 8.2 H, Lymph # (Auto) 1.3, [place] # (Auto) 0.6, Eos # (Auto) 0.3, Baso # (Auto) 0.1, Total Counted 100, Neutrophils % (Manual) 83 H, Band Neutrophils % 1.0, Lymphocytes % (Manual) 8 L, Monocytes % (Manual) 3, Eosinophils % (Manual) 5 H, Platelet Estimate Normal, RBC Morphology Not Reportable, Anisocytosis 1+, Macrocytosis 1+ 07/24/21 09:04: Sodium 138, Potassium 3.1 L, Chloride 108 H, Carbon Dioxide 28, Anion Gap 5.1, BUN 17, Creatinine 0.70, Estimated Creat Clear 74, Estimated GFR 111, Est GFR ( Amer) 135, Glucose 113 H, Calcium 8.6 07/24/21 12:41: POC Glucose 172 H 07/24/21 16:44: POC Glucose 167 H 07/24/21 21:09: POC Glucose 161 H 07/24/21 22:25: Vancomycin Trough 22.6 H 07/25/21 03:15: WBC 11.8 H, RBC 3.72 L, Hgb 12.0 L, Hct 38.2 L, MCV 102.8 H, MCH 32.3 H, MCHC 31.4 L, RDW 15.6, Plt Count 318, MPV 8.2, Neut % (Auto) 85.2 H, Lymph % (Auto) 7.9 L, [place] % (Auto) 5.0, Eos % (Auto) 1.3, Baso % (Auto) 0.6, Neut # (Auto) 10.1 H, Lymph # (Auto) 0.9, [place] # (Auto) 0.6, Eos # (Auto) 0.2, Baso # (Auto) 0.1, Total Counted 100, Neutrophils % (Manual) 80 H, Band Neutrophils % 4.0, Lymphocytes % (Manual) 14, Monocytes % (Manual) 2, Platelet Estimate Normal, Hypochromasia 1+, Macrocytosis 2+ 07/25/21 03:15: Sodium 136, Potassium 3.3 L, Chloride 105, Carbon Dioxide 28, Anion Gap 6.3, BUN 18, Creatinine 0.70, Estimated Creat Clear 74, Estimated GFR 111, Est GFR ( Amer) 135, Glucose 157 H D, Calcium 8.6 07/25/21 03:15: Vancomycin Peak 17.1 07/25/21 05:34: POC Glucose 142 H Medical History: Reports:: BPH, Coronary Artery Disease, Diabetes Mellitus Type 2, Gastroesophageal Reflux Disease(GERD), Hyperlipidemia, Hypertension Denies:: Cancer, Diabetes Mellitus Type 1, Internal Pacemaker, MRSA Assessment and Plan (1) Ileus Status: Acute Category: Medical Code(s): K56.7 - Ileus, unspecified (2) Acute kidney injury Status: Acute Category: Medical Code(s): N17.9 - Acute kidney failure, unspecified (3) Abnormal CXR
--- NOTE | 2021-07-25 08:31 | HMH.ACPN2 ---
<Cordelia Cole - Last Filed: 07/25/21 08:41> Internal Medicine - PN: Subj *Date: 07/25/21 *Time: 08:41 Interval history: Patient states he is passing a lot of gas and stool per rectum. He denies nausea and abdominal pain. He is voiding QS. He denies chest pain, shortness of breath and cough. He continues with mostly clear liquids. Did sit on the side of the bed in the evening and tolerated well. Exam Vital signs and Labs for Last 24 Hours: Temp Pulse Resp BP Pulse Ox 99.7 F H 97 H 18 136/73 94 L 07/25/21 04:00 07/25/21 04:00 07/25/21 04:00 07/25/21 04:00 07/25/21 04:00 Laboratory Results - last 24 hr 07/24/21 07:44: WBC 10.4, RBC 3.61 L, Hgb 11.7 L, Hct 36.8 L, MCV 102.1 H, MCH 32.3 H, MCHC 31.6 L, RDW 15.4, Plt Count 359, MPV 8.3, Neut % (Auto) 78.6, Lymph % (Auto) 12.5, [place] % (Auto) 5.6, Eos % (Auto) 2.8, Baso % (Auto) 0.5, Neut # (Auto) 8.2 H, Lymph # (Auto) 1.3, [place] # (Auto) 0.6, Eos # (Auto) 0.3, Baso # (Auto) 0.1, Total Counted 100, Neutrophils % (Manual) 83 H, Band Neutrophils % 1.0, Lymphocytes % (Manual) 8 L, Monocytes % (Manual) 3, Eosinophils % (Manual) 5 H, Platelet Estimate Normal, RBC Morphology Not Reportable, Anisocytosis 1+, Macrocytosis 1+ 07/24/21 09:04: Sodium 138, Potassium 3.1 L, Chloride 108 H, Carbon Dioxide 28, Anion Gap 5.1, BUN 17, Creatinine 0.70, Estimated Creat Clear 74, Estimated GFR 111, Est GFR ( Amer) 135, Glucose 113 H, Calcium 8.6 07/24/21 12:41: POC Glucose 172 H 07/24/21 16:44: POC Glucose 167 H 07/24/21 21:09: POC Glucose 161 H 07/24/21 22:25: Vancomycin Trough 22.6 H 07/25/21 03:15: WBC 11.8 H, RBC 3.72 L, Hgb 12.0 L, Hct 38.2 L, MCV 102.8 H, MCH 32.3 H, MCHC 31.4 L, RDW 15.6, Plt Count 318, MPV 8.2, Neut % (Auto) 85.2 H, Lymph % (Auto) 7.9 L, [place] % (Auto) 5.0, Eos % (Auto) 1.3, Baso % (Auto) 0.6, Neut # (Auto) 10.1 H, Lymph # (Auto) 0.9, [place] # (Auto) 0.6, Eos # (Auto) 0.2, Baso # (Auto) 0.1, Total Counted 100, Neutrophils % (Manual) 80 H, Band Neutrophils % 4.0, Lymphocytes % (Manual) 14, Monocytes % (Manual) 2, Platelet Estimate Normal, Hypochromasia 1+, Macrocytosis 2+ 07/25/21 03:15: Sodium 136, Potassium 3.3 L, Chloride 105, Carbon Dioxide 28, Anion Gap 6.3, BUN 18, Creatinine 0.70, Estimated Creat Clear 74, Estimated GFR 111, Est GFR ( Amer) 135, Glucose 157 H D, Calcium 8.6 07/25/21 03:15: Vancomycin Peak 17.1 07/25/21 05:34: POC Glucose 142 H I & O for Last 24 hours: Intake & Output 07/22/21 07/23/21 07/24/21 07/25/21 11:59 11:59 11:59 11:59 Intake Total 1130 / 1130 480 / 480 1940 / 1940 1460 / 1460 Output Total 2400 / 2400 1050 / 1050 1325 / 1325 2325 / 2325 Balance -1270 / -1270 -570 / -570 615 / 615 -865 / -865 Weight 352 lb 11.834 oz 351 lb 4.8 oz 348 lb 3.2 oz 347 lb 4.8 oz - Constitutional no acute distress - *Routine Respiratory Exam Present: CTA bilaterally - *Routine Cardiovascular Exam Present: RRR - *Routine Abdominal Exam Present: normoactive bowel sounds, distended, firm. Absent: tenderness, guarding - *Routine Extremities Exam Present: edema (has improved), BENSON stockings - *Routine Neurological Exam Present: alert, oriented X3 Assessment and Plan (1) Ileus Status: Acute Category: Medical Code(s): K56.7 - Ileus, unspecified (2) Acute kidney injury Status: Acute Category: Medical Code(s): N17.9 - Acute kidney failure, unspecified (3) Abnormal CXR Status: Acute Category: Medical Code(s): R93.89 - Abnormal findings on diagnostic imaging of other specified body structures (4) HTN (hypertension) Status: Chronic Category: Medical Code(s): I10 - Essential (primary) hypertension (5) BPH (benign prostatic hyperplasia) Status: Chronic Category: Medical Code(s): N40.0 - Benign prostatic hyperplasia without lower urinary tract symptoms (6) Obesity Status: Acute Category: Medical Code(s): E66.9 - Obesity, unspecified (7) Lactic acid acidosis Status: Acute Category: Medical
--- NOTE | 2021-07-25 10:24 | DIET.NUTRFU ---
RD reviewed chart, patient continues on clear to full liquid diet. Continues to c/o gas and heartburn. He has protonix in place and reglan was added on 07/23. Weight loss of 5# during stay, CBW is 347#. He also received diuretic tx on 07/24, maybe contributing to weight change. Glucerna is ordered with trays when able to have, dependent on diet. Plans to discharge to [facility] when medically feasible.
--- NOTE | 2021-07-25 14:56 | XR_ITS ---
FINAL REPORT CLINICAL HISTORY: PICC placement FINDINGS: SINGLE VIEW CHEST The heart is normal in size. The mediastinum is unremarkable. The lungs are underinflated with scarring at the bases. PICC line tip is in the left subclavian vein. There is no pneumothorax. IMPRESSION: PICC line tip in the left subclavian vein. Reviewed, Interpreted and Dictated by Tray Fishman MD Transcribed by Cordelia Root Authenticated by Tray Fishman MD on 07/26/2021 11:18:11 AM [facility]
[2021-07-25 16:00] VITALS: BP 125/61; PULSE 77; RESP 18; TEMP 36.5; O2SAT 92
[2021-07-25 20:00] VITALS: BP 149/81; PULSE 78; RESP 16; TEMP 36.7; O2SAT 97
[2021-07-25 21:33] LABS: POC Glucose,Bedside 154 (70-110)
[2021-07-26] VITALS: BP 138/68; PULSE 80; RESP 16; TEMP 36.6; O2SAT 98
[2021-07-26 04:00] VITALS: BP 160/77; PULSE 88; RESP 18; TEMP 36.7; O2SAT 99
[2021-07-26 05:00] VITALS: BMI 47.7
[2021-07-26 08:00] VITALS: BP 129/71; PULSE 87; RESP 19; TEMP 36.4; O2SAT 97
--- NOTE | 2021-07-26 08:48 | HMH.ACPN2 ---
<Cordelia Cole - Last Filed: 07/26/21 08:48> Internal Medicine - PN: Subj *Date: 07/26/21 *Time: 08:48 Interval history: Patient states he feels better than he has felt during his stay. He states he will have a PICC line inserted. Patient states he feels better than he has felt during his stay. He relates that he is having a PICC line placed today. He had strawberries and grapes for breakfast this morning which he enjoyed. He denies abdominal pain although he thinks his stomach is tighter after eating. He continues to be incontinent of stools. He did sit on the side of the bed and apparently raised up independently. Physical therapy helped him to bear weight on the left leg. Exam Vital signs and Labs for Last 24 Hours: Temp Pulse Resp BP Pulse Ox 97.6 F 87 19 129/71 97 07/26/21 08:00 07/26/21 08:00 07/26/21 08:00 07/26/21 08:00 07/26/21 08:00 Laboratory Results - last 24 hr 07/25/21 15:51: POC Glucose 154 H I & O for Last 24 hours: Intake & Output 07/23/21 07/24/21 07/25/21 07/26/21 11:59 11:59 11:59 11:59 Intake Total 480 / 480 1940 / 1940 1700 / 1700 1160 / 1160 Output Total 1050 / 1050 1325 / 1325 2725 / 2725 1250 / 1250 Balance -570 / -570 615 / 615 -1025 / -1025 -90 / -90 Weight 351 lb 4.8 oz 348 lb 3.2 oz 347 lb 4.8 oz 352 lb 4.779 oz - Constitutional no acute distress Comments: Sitting up in the bed and appears comfortable - *Routine Respiratory Exam Present: CTA bilaterally - *Routine Cardiovascular Exam Present: RRR - *Routine Abdominal Exam Present: normoactive bowel sounds, distended, firm (Less firm). Absent: tenderness, guarding - *Routine Extremities Exam Present: edema - *Routine Neurological Exam Present: alert, oriented X3 Assessment and Plan (1) Ileus Status: Acute Category: Medical Code(s): K56.7 - Ileus, unspecified (2) Acute kidney injury Status: Acute Category: Medical Code(s): N17.9 - Acute kidney failure, unspecified (3) Abnormal CXR Status: Acute Category: Medical Code(s): R93.89 - Abnormal findings on diagnostic imaging of other specified body structures (4) HTN (hypertension) Status: Chronic Category: Medical Code(s): I10 - Essential (primary) hypertension (5) BPH (benign prostatic hyperplasia) Status: Chronic Category: Medical Code(s): N40.0 - Benign prostatic hyperplasia without lower urinary tract symptoms (6) Obesity Status: Acute Category: Medical Code(s): E66.9 - Obesity, unspecified (7) Lactic acid acidosis Status: Acute Category: Medical Code(s): E87.2 - Acidosis (8) CRUZ treated with BiPAP Status: Chronic Category: Medical Code(s): G47.33 - Obstructive sleep apnea (adult) (pediatric) (9) Type 2 diabetes mellitus Status: Acute Category: Medical Code(s): E11.9 - Type 2 diabetes mellitus without complications (10) Hyponatremia Status: Acute Category: Medical Code(s): E87.1 - Hypo-osmolality and hyponatremia (11) Hypokalemia Status: Acute Category: Medical Code(s): E87.6 - Hypokalemia (12) Hypomagnesemia Status: Acute Category: Medical Code(s): E83.42 - Hypomagnesemia (13) Urinary tract infection Status: Acute Category: Medical Code(s): N39.0 - Urinary tract infection, site not specified (14) Enterococcus as the cause of diseases classified elsewhere Status: Acute Category: Medical Code(s): B95.2 - Enterococcus as the cause of diseases classified elsewhere - Assessment and plan all Dx Assessment and Plan for all problems:: Patient will have PICC line inserted. He received 6 more days of vancomycin IV. Will be discharged back to [facility] with ongoing care by PT and OT. <Chon Armijo - Last Filed: 07/30/21 22:27> Internal Medicine - PN: Subj *Date: 07/30/21 *Time: 22:27 Exam Vital signs and Labs for Last 24 Hours: Temp Pulse Resp BP Pulse Ox 97.6 F 81 20 131/66 93 L
--- NOTE | 2021-07-26 09:04 | HMH.DCSUM ---
General - General Admission date:: 07/12/21 <Chon Armijo - 08/14/21 15:02> 07/12/21 <Cordelia Cole - 07/26/21 09:52> Discharge date: 07/26/21 <Cordelia Cole - 07/26/21 09:52> HPI HPI: Mr. CAN Cortes is a 71-year-old male patient with a history of hypertension, type 2 diabetes mellitus, hyperlipidemia, BPH, morbid obesity, CRUZ on CPAP, and fall who presented to [facility] emergency room for evaluations after vomiting coffee-ground black emesis in the residential. At that time he was found to be hypotensive as well. Abdomen was taut with some tenderness. He generally did not feel well. He denied any upper respiratory symptoms and fever. To note he had a fall at home at which time he sustained a fracture of the right tibia/fibula when he took an awkward step. He was taken to the operating room at [facility] where he had a fibula intramedullary nail/snow insertion by Dr. Palacios. He also was noted to have some left ankle ligament changes. While hospitalized with the leg surgery he experienced some nausea and vomiting but this was related to the [place]. He was switched back to Percocet at which time this resolved. He did have some constipation which was resolved with Senokot and MiraLAX. He was sent to [facility] for ongoing short-term rehab with a stay expectancy of 4 to 6 weeks. He was noted to live alone and was planning to return home. With evaluation in the emergency room laboratory data showed a white blood cell count of 10,900 and a hemoglobin of 14.3 hematocrit of 44.6. Blood chemistry showed a sodium of 128 potassium 3.4 chloride 89 CO2 21. BUN was 95 and creatinine was 4.2. GFR was 17. Lactate was elevated at 2.2. Liver function studies were not elevated. BNP was 392. Emesis was noted to be positive for occult blood. Acetone was negative. COVID was negative. Coagulation was normal with an INR of 1.01. CXR revealed bibasilar ateletasis CT of the abdomen/pelvis: IMPRESSION: Technically limiting study secondary to patient body habitus. Multiple air and fluid filled distended bowel loops without a definite transition point, may represent an ileus or enteritis. A distal colonic obstruction is not entirely excluded. With Further evaluation patient was found to be afebrile and initial blood pressure was 75/53. It did improve to 90/47 and 87/47. He was started on Protonix and given a fluid bolus. He was also started on Rocephin IV and lactated Ringer's at 125 an hour. He was started on norepinephrine drip and given doxycycline as well. He had Zofran and Protonix during his stay. ER physician noted that findings were concerning for severe ileus or possible obstruction. He also noted that the pt received a full 30 cc/kg fluid bolus based on his ideal body weight. NG tube was placed. Hemoglobin was stable. He was seen in consultation by surgeon Dr. Hernandez with the following assessment and plan: Assessment and Plan for all problems:: Majority of his symptoms seem to be secondary to possible bowel obstruction versus profound ileus. I would plan to treat as such with nasogastric decompression and IV fluid hydration. Black vomit is likely secondary to bowel obstruction. I would recommend proton pump inhibitor at this time. Would not plan for upper endoscopy at this time but plan to treat as bowel obstruction He was then admitted to [facility] for ongoing care. <Cordelia Cole - 07/26/21 09:52> Hospital Course Hospital Course: On admission patient was felt to have a bowel obstruction with acute kidney injury with hypovolemic shock. He was initially treated with aggressive fluid resuscitation and required Levophed to maintain his blood pressure. He was evaluated and followed by surgery and NGT was placed. He was empirically started on Rocephin and doxycycline. He did maxed out on the Levophed and remained hypotensive. He was also tachycardic. He was on BiPAP to maintain O2 sats in the mid 90s
[2021-07-26 10:09] LABS: Coronavirus 19, PCR Not Detected (NotDetected); Influenza A, PCR Not Detected (NotDetected); Influenza B, PCR Not Detected (NotDetected)
[2021-07-26 11:38] LABS: POC Glucose,Bedside 148 (70-110)
[2021-07-26 11:38] LABS: POC Glucose,Bedside 159 (70-110)
[2021-07-26 11:39] LABS: POC Glucose,Bedside 118 (70-110)
--- NOTE | 2021-07-26 13:22 | PC.NURSE ---
Called report to [facility] at this time as well as [facility], awaiting transfer currently.
[2021-07-26 16:00] VITALS: BP 131/66; PULSE 81; RESP 20; TEMP 36.4; O2SAT 93
[2021-07-26 17:28] LABS: POC Glucose,Bedside 219 (70-110)
[2021-07-27 11:27] LABS: POC Glucose,Bedside 185 (70-110)
== END 2021-07-26 17:30 | DRG 388 ==
LOC: ER 14:53 → ICU 17:09 → 2ND 07-15 11:06
PROVIDERS: Physician Assistant; Surgery; Admitting Provider Family Medicine; Emergency Provider Emergency Medicine; PCP Family Medicine; Referring Provider Family Medicine; Visit Provider Family Medicine
DX: K56.7 Ileus, unspecified (principal); J18.9 Pneumonia, unspecified organism; R57.1 Hypovolemic shock; K92.2 Gastrointestinal hemorrhage, unspecified; E87.1 Hypo-osmolality and hyponatremia; Z68.41 Body mass index [BMI] 40.0-44.9, adult; N17.9 Acute kidney failure, unspecified; E87.2 Acidosis; Z68.42 Body mass index [BMI] 45.0-49.9, adult; N39.0 Urinary tract infection, site not specified; E87.6 Hypokalemia; E66.01 Morbid (severe) obesity due to excess calories; Z20.822 Contact with and (suspected) exposure to COVID-19; N40.0 Benign prostatic hyperplasia without lower urinary tract symptoms; Z79.899 Other long term (current) drug therapy; E11.9 Type 2 diabetes mellitus without complications; E66.9 Obesity, unspecified; G47.33 Obstructive sleep apnea (adult) (pediatric); E83.42 Hypomagnesemia; B95.2 Enterococcus as the cause of diseases classified elsewhere
CPT/HCPCS: 36569; 36415; 71045; 74018; 74019; 74021; 74176; 74177; 80048; 80053; 80202; 81001; 82009; 82272; 82803; 82962; 83605; 83690; 83735; 83880; 84484; 85007; 85014; 85018; 85025; 85048; 85049; 85610; 85730; 86850; 87070; 87077; 87086; 87088; 87186; 87205; 87507; 93005; 93306; 94660; 94761; 96365; 96366; 96375; 97110; 97162; 97530; 99284; C1751; C9803; G0328; J0696; J2405; J3370; Q9957; Q9967; U0003; U0005

== ENCOUNTER 2021-07-28 09:00 | Outpatient (CLI) | payer MEDICARE, OTHER, SELFPAY ==
[2021-07-28 09:24] VITALS: BMI 43.6
--- NOTE | 2021-07-28 10:20 | XR_ITS ---
FINAL REPORT CLINICAL HISTORY: PICC line placement COMPARISON: July 26, 2021 FINDINGS: A left-sided PICC line is seen terminating at the junction of the left internal jugular and subclavian veins. The heart size is normal. The mediastinum is normal. There is no focal infiltrate or edema. There are no pleural effusions. There is no pneumothorax. There is no osseous abnormality. IMPRESSION: PICC line terminating at the junction of the left internal jugular and subclavian veins. Reviewed, Interpreted and Dictated by Tray Fishman MD Transcribed by Mack Vera Authenticated by Tray Fishman MD on 07/28/2021 11:54:19 AM [facility]
--- NOTE | 2021-07-28 12:44 | XR_ITS ---
FINAL REPORT CLINICAL HISTORY: PICC line placement COMPARISON: 3 hours prior FINDINGS: The left PICC line tip is not well visualized due to underpenetration but is seen to at least the left brachiocephalic vein. The heart size is normal. The mediastinum is normal. The lungs are underinflated. There is bibasilar atelectasis. There are no pleural effusions. There is no pneumothorax. There is no osseous abnormality. IMPRESSION: PICC line tip poorly visualized due to underpenetration but seen to the left brachial cephalic vein. Reviewed, Interpreted and Dictated by Tray Fishman MD Transcribed by Mack Vera Authenticated by Tray Fishman MD on 07/28/2021 02:22:17 PM [facility]
--- NOTE | 2021-07-28 16:07 | PC.NURSE ---
1225-MARÍA SANTOS AND CARLOS MARLOW PRESENT TO REMOVE PICC AND INSERT NEW ONE. 1250-CHEST X-RAY COMPLETE. 1420-CHEST X-RAY RESULTS BACK AND REVIEWED WITH DR TORRES. HE WAS OKAY WITH PLACEMENT AND USE OF PICC LINE. PICC FLUSHED EASILY AND BLOOD RETURN NOTED. REPORT CALLED TO CNONIE AT [facility] TO REVIEW PICC LINE CARE AND DRESSING CHANGES.
== END 2021-07-28 14:55 | disposition home or self-care (01) ==
LOC: INF 09:01
PROVIDERS: PCP Family Medicine; Visit Provider Family Medicine
DX: Z45.2 Encounter for adjustment and management of vascular access device (principal)
CPT/HCPCS: 36569; 71045; 96374; C1751

== ENCOUNTER → 2021-07-29 09:46 | Outpatient (CLI) | payer MEDICARE, OTHER, SELFPAY ==
[2021-07-29 11:03] LABS: Vancomycin,Trough 34.9 ug/mL (5.0-10.0)
== END ==
PROVIDERS: Visit Provider Family Medicine
DX: Z51.81 Encounter for therapeutic drug level monitoring (principal)
CPT/HCPCS: 80202

== ENCOUNTER → 2021-07-30 08:38 | Outpatient (REF) | payer MEDICARE, OTHER, SELFPAY ==
[2021-07-30 09:40] LABS: Basophils # 0.1 K/mm3 (0-0.2); Basophils % 0.7 % (0.1-2.0); Eosinophils # 0.3 K/mm3 (0.0-0.4); Eosinophils % 4.9 % (0.1-12.0); Hematocrit 36.5 % (42.0-52.0); Hemoglobin 11.3 g/dL (14.1-18.0); Lymphocytes # 0.9 K/mm3 (0.7-4.5); Lymphocytes % 13.4 % (10-50); Mean Corpuscular HGB Conc 30.9 g/dL (31.8-35.4); Mean Corpuscular Hemoglobin 32.5 pg (27.0-31.2); Mean Corpuscular Volume 105.3 fl (80-94); Mean Platelet Volume 9.4 fl (7.4-10.4); Monocytes # 0.6 K/mm3 (0.1-1.0); Monocytes % 9.5 % (1.7-9.3); Neutrophils # 4.5 K/mm3 (1.8-7.8); Neutrophils % 71.3 % (37.0-80.0); Platelet Count 269 K/mm3 (142-424); Red Blood Count 3.46 M/mm3 (4.60-6.20); Red Cell Distribution Width 15.5 % (11.5-17.5); White Blood Count 6.4 K/mm3 (4.8-10.8)
[2021-07-30 10:20] LABS: Alanine Aminotransferase 25 U/L (12-78); Albumin Level 2.5 g/dl (3.5-5.0); Albumin/Globulin Ratio 1.2 (1.1-1.8); Alkaline Phosphatase 81 U/L (38-126); Anion Gap 6.8 mEq/L (5-15); Aspartate Amino Transferase 25 U/L (17-59); Bilirubin,Total 1.4 mg/dl (0.2-1.3); Blood Urea Nitrogen 17 mg/dl (9-20); Calcium 8.7 mg/dl (8.4-10.2); Carbon Dioxide 29 mmol/L (22.0-30.0); Chloride 106 mmol/L (98-107); Estimated Glomerular Filt Rate 30 ml/min (>60); GFR (African American) 36 ML/MIN (>60); Globulin 2.1 g/dL (1.3-3.2); Glucose 117 mg/dl (74-100); Sodium 139 mmol/L (136-145); Total Protein,Serum 4.6 g/dl (6.3-8.2)
[2021-07-30 10:44] LABS: Vancomycin,Trough 28.6 ug/mL (5.0-10.0)
[2021-07-30 10:48] LABS: Potassium 2.8 mmoL/L (3.5-5.1)
== END ==
LOC: LAB.DROPOF 08:38
PROVIDERS: Visit Provider Family Medicine
DX: E87.6 Hypokalemia (principal)
CPT/HCPCS: 80053; 80202; 85025

== ENCOUNTER → 2021-08-02 18:56 | Outpatient (CLI) | payer MEDICARE, OTHER, SELFPAY ==
[2021-08-02 20:51] LABS: Vancomycin,Trough 35.2 ug/mL (5.0-10.0)
== END ==
PROVIDERS: Visit Provider Family Medicine
DX: Z51.81 Encounter for therapeutic drug level monitoring (principal)
CPT/HCPCS: 80202

== ENCOUNTER → 2021-08-05 11:52 | Outpatient (CLI) | payer MEDICARE, OTHER, SELFPAY ==
[2021-08-05 12:16] LABS: Basophils # 0.1 K/mm3 (0-0.2); Basophils % 0.7 % (0.1-2.0); Eosinophils # 0.6 K/mm3 (0.0-0.4); Eosinophils % 8.5 % (0.1-12.0); Hematocrit 36.8 % (42.0-52.0); Hemoglobin 11.5 g/dL (14.1-18.0); Lymphocytes # 1.1 K/mm3 (0.7-4.5); Lymphocytes % 16.3 % (10-50); Mean Corpuscular HGB Conc 31.4 g/dL (31.8-35.4); Mean Corpuscular Hemoglobin 32.8 pg (27.0-31.2); Mean Corpuscular Volume 104.5 fl (80-94); Mean Platelet Volume 8.8 fl (7.4-10.4); Monocytes # 0.6 K/mm3 (0.1-1.0); Monocytes % 8.8 % (1.7-9.3); Neutrophils # 4.5 K/mm3 (1.8-7.8); Neutrophils % 65.7 % (37.0-80.0); Platelet Count 254 K/mm3 (142-424); Red Blood Count 3.52 M/mm3 (4.60-6.20); Red Cell Distribution Width 15.3 % (11.5-17.5); White Blood Count 6.9 K/mm3 (4.8-10.8)
[2021-08-05 12:36] LABS: Chloride 103 mmol/L (98-107); Sodium 131 mmol/L (136-145)
[2021-08-05 12:39] LABS: Anion Gap 8.8 mEq/L (5-15); Blood Urea Nitrogen 21 mg/dl (9-20); Calcium 9.2 mg/dl (8.4-10.2); Carbon Dioxide 22 mmol/L (22.0-30.0); Estimated Glomerular Filt Rate 19 ml/min (>60); GFR (African American) 23 ML/MIN (>60); Glucose 105 mg/dl (74-100)
[2021-08-05 12:42] LABS: Potassium 2.8 mmoL/L (3.5-5.1)
== END ==
PROVIDERS: Visit Provider Family Medicine
DX: I10 Essential (primary) hypertension (principal); E78.5 Hyperlipidemia, unspecified
CPT/HCPCS: 80048; 85025

== ENCOUNTER → 2021-08-11 13:13 | Outpatient (REF) | payer MEDICARE, OTHER, SELFPAY | LOC: LAB.DROPOF 13:13 | PROVIDERS: Visit Provider Family Medicine | DX: E11.9 Type 2 diabetes mellitus without complications (principal); Z79.4 Long term (current) use of insulin ==

== ENCOUNTER → 2021-08-22 07:31 | Outpatient (CLI) | payer MEDICARE, OTHER, SELFPAY ==
[2021-08-22 08:25] LABS: Chloride 108 mmol/L (98-107); Sodium 133 mmol/L (136-145)
[2021-08-22 08:28] LABS: Blood Urea Nitrogen 10 mg/dl (9-20); Carbon Dioxide 23 mmol/L (22.0-30.0); Estimated Glomerular Filt Rate 74 ml/min (>60); GFR (African American) 89 ML/MIN (>60)
[2021-08-22 08:29] LABS: Anion Gap 4.7 mEq/L (5-15); Calcium 8.3 mg/dl (8.4-10.2); Glucose 86 mg/dl (74-100)
[2021-08-22 08:32] LABS: Potassium 2.7 mmoL/L (3.5-5.1)
== END ==
PROVIDERS: Visit Provider Family Medicine
DX: I10 Essential (primary) hypertension (principal)
CPT/HCPCS: 80048